=== PATIENT | female | born 1945 | race Caucasian/White ===

== ENCOUNTER → 2016-12-01 | Outpatient (CLI) | payer MEDICARE, OTHER ==
[2016-12-01 13:01] LABS: BASO % 1.2 % (0.0-1.0); EOS # 0.1 K/mm3 (0.0-0.50); EOS % 2.5 % (0.0-3.0); LYMPH # 0.4 K/mm3 (1.5-4.5); LYMPH % 12.7 % (24.0-44.0); MEAN CORPUSCULAR HGB CONC 33.3 g/dl (32.0-36.5); MEAN CORPUSCULAR VOLUME 87.1 fl (80.0-96.0); MONO # 0.3 K/mm3 (0.0-0.8); MONO % 9.7 % (0.0-5.0); NEUTROPHILS # 2.1 K/mm3 (1.8-7.7); RED CELL DISTRIBUTION WIDTH 14.5 % (11.5-14.5)
[2016-12-01 13:16] LABS: ALBUMIN 3.4 GM/DL (3.2-5.2); ALKALINE PHOSPHATASE 69 U/L (45-117); ALT/SGPT 53 U/L (12-78); AST/SGOT 45 U/L (15-37); BLOOD UREA NITROGEN 25 MG/DL (7-18); CREATININE FOR GFR 0.85 MG/DL (0.55-1.02); GLOMERULAR FILTRATION RATE > 60.0 (>39)
[2016-12-01 13:41] LABS: COMPLEMENT C3 146 MG/DL (90-180); COMPLEMENT C4 28.6 MG/DL (10-40)
== END ==
LOC: M LAB 11:54
PROVIDERS: ATTEND Internal Medicine Rheumatology
DX: M32.10 Systemic lupus erythematosus, organ or system involvement unspecified (principal); K75.4 Autoimmune hepatitis; R94.5 Abnormal results of liver function studies; K59.00 Constipation, unspecified; R12 Heartburn; E66.3 Overweight; D64.9 Anemia, unspecified; E11.9 Type 2 diabetes mellitus without complications

== ENCOUNTER → 2016-12-01 | Outpatient (CLI) | payer MEDICARE, OTHER ==
[2016-12-01 13:19] LABS: ALBUMIN 3.5 GM/DL (3.2-5.2); ALBUMIN/GLOBULIN RATIO 0.95 (1.00-1.93); BILIRUBIN,DIRECT 0.1 MG/DL (0.0-0.2); BILIRUBIN,TOTAL 0.3 MG/DL (0.2-1.0); TOTAL PROTEIN 7.2 GM/DL (6.4-8.2)
== END ==
LOC: M LAB 11:57
PROVIDERS: ATTEND Internal Medicine Rheumatology
DX: K75.4 Autoimmune hepatitis (principal); K59.00 Constipation, unspecified; R12 Heartburn; E66.3 Overweight; D64.9 Anemia, unspecified; E11.9 Type 2 diabetes mellitus without complications

== ENCOUNTER → 2016-12-29 | Outpatient (CLI) | payer MEDICARE, OTHER ==
[2016-12-29 11:48] LABS: MEAN CORPUSCULAR HGB CONC 33.4 g/dl (32.0-36.5); MEAN CORPUSCULAR VOLUME 86.8 fl (80.0-96.0); RED CELL DISTRIBUTION WIDTH 13.9 % (11.5-14.5); WHITE BLOOD COUNT 4.2 K/mm3 (4.0-10.0)
[2016-12-29 13:09] LABS: ALBUMIN 3.3 GM/DL (3.2-5.2); ALBUMIN/GLOBULIN RATIO 0.85 (1.00-1.93); ALKALINE PHOSPHATASE 69 U/L (45-117); ALT/SGPT 48 U/L (12-78); AST/SGOT 39 U/L (15-37); BILIRUBIN,DIRECT < 0.1 MG/DL (0.0-0.2); BILIRUBIN,TOTAL 0.3 MG/DL (0.2-1.0); TOTAL PROTEIN 7.2 GM/DL (6.4-8.2)
== END ==
LOC: M LAB 10:35
PROVIDERS: ATTEND Internal Medicine Gastroenterology
DX: K75.4 Autoimmune hepatitis (principal); R94.5 Abnormal results of liver function studies

== ENCOUNTER → 2017-03-15 | Outpatient (REF) | payer MEDICARE, OTHER ==
[2017-03-15 17:29] LABS: IONIZED CALCIUM 5.4 MG/DL (4.5-5.3)
== END ==
LOC: M LAB REF 17:04
PROVIDERS: ATTEND Family Medicine
DX: E83.52 Hypercalcemia (principal); D64.9 Anemia, unspecified

== ENCOUNTER → 2017-04-06 | Outpatient (CLI) | payer MEDICARE, OTHER ==
[2017-04-06 12:07] LABS: BASO % 0.6 % (0.0-1.0); EOS # 0.1 10^3/uL (0.0-0.50); EOS % 2.6 % (0.0-3.0); IMMATURE GRANULOCYTE % 0.3 % (0-0); LYMPH % 14.3 % (24.0-44.0); MEAN CORPUSCULAR HEMOGLOBIN 28.3 pg (27.0-33.0); MEAN CORPUSCULAR HGB CONC 33.3 g/dl (32.0-36.5); MEAN CORPUSCULAR VOLUME 84.9 fl (80.0-96.0); MONO # 0.5 10^3/uL (0.0-0.8); NEUTROPHILS # 2.3 10^3/uL (1.8-7.7); NEUTROPHILS % 68.2 % (36.0-66.0); PLATELET COUNT, AUTOMATED 235 10^3/uL (150-450); RED CELL DISTRIBUTION WIDTH 13.9 % (11.5-14.5); WHITE BLOOD COUNT 3.4 10^3/uL (4.0-10.0)
[2017-04-06 12:08] LABS: LYMPH # 0.5 10^3/uL (1.5-4.5)
[2017-04-06 12:32] LABS: ERYTHROCYTE SEDIMENTATION RATE 58 mm/hr (0-30)
[2017-04-06 12:36] LABS: VITAMIN B12 LEVEL 622 PG/ML
[2017-04-06 12:37] LABS: FOLATE 21.1 NG/ML
[2017-04-06 12:42] LABS: ALBUMIN 3.5 GM/DL (3.2-5.2); ALBUMIN/GLOBULIN RATIO 0.85 (1.00-1.93); ALKALINE PHOSPHATASE 67 U/L (45-117); ALT/SGPT 66 U/L (12-78); ANION GAP 5 MEQ/L (8-16); AST/SGOT 57 U/L (15-37); BILIRUBIN,TOTAL 0.3 MG/DL (0.2-1.0); BLOOD UREA NITROGEN 20 MG/DL (7-18); CARBON DIOXIDE LEVEL 29 MEQ/L (21-32); CHLORIDE LEVEL 100 MEQ/L (98-107); CREATININE FOR GFR 0.91 MG/DL (0.55-1.02); GLOMERULAR FILTRATION RATE > 60.0 (>39); GLUCOSE, FASTING 71 MG/DL (83-110); SODIUM LEVEL 134 MEQ/L (136-145); TOTAL PROTEIN 7.6 GM/DL (6.4-8.2)
[2017-04-07 12:22] LABS: ALBUMIN 4.15 GM/DL (3.29-5.55); ALBUMIN % 54.6 % (55.8-66.1)
[2017-04-13 00:06] LABS: Lyme Disease IgG Ab 18 kDa Ban Absent (.); Lyme Disease IgG Ab 23 kDa Ban Absent (.); Lyme Disease IgG Ab 28 kDa Ban Absent (.); Lyme Disease IgG Ab 30 kDa Ban Present (.); Lyme Disease IgG Ab 39 kDa Ban Absent (.); Lyme Disease IgG Ab 41 kDa Ban Absent (.); Lyme Disease IgG Ab 45 kDa Ban Absent (.); Lyme Disease IgG Ab 58 kDa Ban Absent (.); Lyme Disease IgG Ab 66 kDa Ban Absent (.); Lyme Disease IgG Ab 93 kDa Ban Absent (.); Lyme Disease IgG West Blot Int Negative (.); Lyme Disease IgG/IgM Antibodie 2.98 ISR (0.00-0.90); Lyme Disease IgM Ab 23 kDa Ban Absent (.); Lyme Disease IgM Ab 39 kDa Ban Absent (.); Lyme Disease IgM Ab 41 kDa Ban Absent (.); Lyme Disease IgM Ab Quantitati <0.80 index (0.00-0.79); Lyme Disease IgM West Blot Int Negative (.); SJOGREN'S ANTI SS-A <0.2 AI (0.0-0.9); SJOGREN'S ANTI SS-B <0.2 AI (0.0-0.9); VITAMIN E LEVEL 24.8 mg/L (6.5-21.5)
== END ==
LOC: M LAB 11:32
PROVIDERS: ATTEND Psychiatry & Neurology Neurology
DX: G62.9 Polyneuropathy, unspecified (principal)

== ENCOUNTER → 2017-04-20 | Outpatient (REF) | payer MEDICARE, OTHER ==
[2017-04-20 17:40] LABS: IONIZED CALCIUM 5.3 MG/DL (4.5-5.3)
[2017-04-20 19:06] LABS: REASON FOR REVIEW COMPREHENSIVE REVIEW
== END ==
LOC: M LAB REF 16:41
PROVIDERS: ATTEND Family Medicine
DX: E83.52 Hypercalcemia (principal); D64.9 Anemia, unspecified

== ENCOUNTER → 2017-05-18 | Outpatient (REF) | payer MEDICARE, OTHER ==
[2017-05-18 18:32] LABS: INR 0.98
[2017-05-18 19:45] LABS: IMMUNOGLOBULIN G 1210 MG/DL (681-1648); IMMUNOGLOBULIN M 191 MG/DL (40-230); TOTAL PROTEIN 7.5 GM/DL (6.4-8.2)
[2017-05-19 12:53] LABS: ALBUMIN 4.09 GM/DL (3.29-5.55); ALBUMIN % 54.5 % (55.8-66.1); GAMMA GLOBULIN % 15.9 % (11.1-18.8)
[2017-05-20 10:57] LABS: CARCINOEMBRYONIC ANTIGEN 0.9 NG/ML (<2.5)
== END ==
LOC: M LAB REF 16:45
PROVIDERS: ATTEND Internal Medicine Medical Oncology
DX: R59.0 Localized enlarged lymph nodes (principal); Z79.899 Other long term (current) drug therapy

== ENCOUNTER → 2017-05-27 | Outpatient (REF) | payer MEDICARE, OTHER ==
[2017-05-27 14:01] LABS: INR 1.01
[2017-05-30 14:25] LABS: VITAMIN D 1,25 DIHYDROXY 43.1 pg/mL (19.9-79.3)
[2017-06-03 00:06] LABS: PTH RELATED PEPTIDE < 1.1 pmol/L (.)
== END ==
LOC: M LAB REF 12:32
PROVIDERS: ATTEND Internal Medicine Medical Oncology
DX: C79.51 Secondary malignant neoplasm of bone (principal); E83.52 Hypercalcemia

== ENCOUNTER → 2017-06-01 | Outpatient (REF) | payer MEDICARE, OTHER | LOC: M LAB REF 09:10 | PROVIDERS: ATTEND Internal Medicine Medical Oncology | DX: C79.51 Secondary malignant neoplasm of bone (principal); C80.1 Malignant (primary) neoplasm, unspecified ==

== ENCOUNTER → 2017-06-13 | Outpatient (CLI) | payer MEDICARE, OTHER ==
[~2017-06-13] MED LIST: LIDOCAINE 1% MDV 20ML VIAL As Ordered ONE
--- NOTE | 2017-06-13 15:56 | REP ---
CT GUIDED LEFT ILIAC BONE BIOPSY: The procedure was performed under the direct supervision of Dr. Leonard. The patient has a history of multiple skeletal foci seen on a previous PET dated 05/17/2017. A lesion in the left iliac bone was referred for biopsy. The risks and benefits of the procedure were explained to the patient and informed consent was obtained. The left iliac bone lesion was localized using CT guidance. The skin was prepped and draped in a sterile fashion. 1% Xylocaine was used as a local anesthetic. Using CT guidance a 13 gauge bone biopsy system was inserted and advanced into the lesion. Two core biopsy samples were obtained and sent to the lab. The patient tolerated the procedure well and there were no immediate complications. After the appropriate amount of monitored convalescence the patient was discharged from the department. Reviewed by TREY Oliveira 06/13/2017 03:59 PEdited and Signed by Jordan Leonard MD 06/14/2017 08:07 A
== END ==
LOC: M RADPRO 08:23
PROVIDERS: ATTEND Internal Medicine Medical Oncology
DX: M89.8X8 Other specified disorders of bone, other site (principal); E78.00 Pure hypercholesterolemia, unspecified; E11.9 Type 2 diabetes mellitus without complications; M32.9 Systemic lupus erythematosus, unspecified; Z79.899 Other long term (current) drug therapy; Z88.8 Allergy status to other drugs, medicaments and biological substances

== ENCOUNTER → 2017-06-14 | Outpatient (REF) | payer MEDICARE, OTHER ==
[2017-06-14 14:58] LABS: MAGNESIUM LEVEL 1.1 MG/DL (1.8-2.4); PHOSPHORUS LEVEL 2.2 MG/DL (2.5-4.9); URIC ACID 6.8 MG/DL (2.6-6.0)
== END ==
LOC: M LAB REF 13:35
PROVIDERS: ATTEND Internal Medicine Medical Oncology
DX: D64.9 Anemia, unspecified (principal)

== ENCOUNTER → 2017-09-06 | Outpatient (REF) | payer MEDICARE, OTHER ==
[2017-09-06 12:39] LABS: IONIZED CALCIUM 5.4 MG/DL (4.5-5.3)
== END ==
LOC: M LAB REF 12:27
DX: E83.52 Hypercalcemia (principal)
CPT/HCPCS: 82330

== ENCOUNTER → 2017-10-26 | Outpatient (CLI) | payer MEDICARE, OTHER ==
[2017-10-26 09:09] LABS: ERYTHROCYTE SEDIMENTATION RATE 49 mm/hr (0-30)
[2017-10-26 09:11] LABS: ALBUMIN 3.4 GM/DL (3.2-5.2); ALBUMIN/GLOBULIN RATIO 0.97 (1.00-1.93); ALKALINE PHOSPHATASE 53 U/L (45-117); ALT/SGPT 62 U/L (12-78); AMYLASE 45 U/L (25-115); ANION GAP 8 MEQ/L (8-16); AST/SGOT 35 U/L (7-37); BILIRUBIN,TOTAL 0.3 MG/DL (0.2-1.0); BLOOD UREA NITROGEN 25 MG/DL (7-18); C REACTIVE PROTEIN QUANTITATIV 0.41 MG/DL (0.00-0.30); CALCIUM LEVEL 10.3 MG/DL (8.8-10.2); CARBON DIOXIDE LEVEL 31 MEQ/L (21-32); CHLORIDE LEVEL 100 MEQ/L (98-107); GLOMERULAR FILTRATION RATE 58.2 (>39); GLUCOSE, FASTING 91 MG/DL (70-100); LIPASE 142 U/L (73-393); POTASSIUM SERUM 3.3 MEQ/L (3.5-5.1); SODIUM LEVEL 139 MEQ/L (136-145); TOTAL PROTEIN 6.9 GM/DL (6.4-8.2)
== END ==
LOC: M LAB 08:17
DX: K75.4 Autoimmune hepatitis (principal); D64.9 Anemia, unspecified; E86.9 Volume depletion, unspecified
CPT/HCPCS: 82150

== ENCOUNTER → 2017-11-15 | Outpatient (REF) | payer MEDICARE, OTHER ==
[2017-11-15 18:34] LABS: FERRITIN 16 NG/ML (8-252); IRON (FE) 93 UG/DL (50-170); PERCENT SATURATION 22.1 % (13.2-45.0); TOTAL IRON BINDING CAPACITY 421 UG/DL (250-450)
== END ==
LOC: M LAB REF 16:35
DX: D64.9 Anemia, unspecified (principal)
CPT/HCPCS: 83550

== ENCOUNTER → 2017-12-26 | Outpatient (CLI) | payer MEDICARE, OTHER ==
[2017-12-26 09:10] LABS: IONIZED CALCIUM 5.2 MG/DL (4.5-5.3)
[2017-12-26 09:28] LABS: CALCIUM LEVEL 10.9 MG/DL (8.8-10.2)
== END ==
LOC: M LAB 08:24
DX: E83.52 Hypercalcemia (principal)

== ENCOUNTER → 2017-12-26 | Outpatient (CLI) | payer MEDICARE, OTHER ==
[2017-12-26 09:00] LABS: BASO % 0.4 % (0.0-1.0); EOS # 0.1 10^3/uL (0.0-0.50); EOS % 0.8 % (0.0-3.0); HEMATOCRIT 31.4 % (36.0-47.0); HEMOGLOBIN 10.5 g/dl (12.0-15.5); IMMATURE GRANULOCYTE % 0.3 % (0-3.0); LYMPH # 0.7 10^3/uL (1.5-4.5); LYMPH % 9.4 % (24.0-44.0); MEAN CORPUSCULAR HEMOGLOBIN 29.7 pg (27.0-33.0); MEAN CORPUSCULAR HGB CONC 33.4 g/dl (32.0-36.5); MONO # 0.9 10^3/uL (0.0-0.8); MONO % 12.2 % (0.0-5.0); NEUTROPHILS # 5.5 10^3/uL (1.8-7.7); NEUTROPHILS % 76.9 % (36.0-66.0); PLATELET COUNT, AUTOMATED 328 10^3/uL (150-450); RED BLOOD COUNT 3.53 10^6/uL (4.00-5.40); RED CELL DISTRIBUTION WIDTH 13.4 % (11.5-14.5); WHITE BLOOD COUNT 7.2 10^3/uL (4.0-10.0)
[2017-12-26 09:32] LABS: ERYTHROCYTE SEDIMENTATION RATE 47 mm/hr (0-30)
[2017-12-26 12:37] LABS: ALBUMIN 3.4 GM/DL (3.2-5.2); ALT/SGPT 44 U/L (12-78); AST/SGOT 25 U/L (7-37); C REACTIVE PROTEIN QUANTITATIV 0.72 MG/DL (0.00-0.30); COMPLEMENT C3 132 MG/DL (90-180); COMPLEMENT C4 25.9 MG/DL (10-40); CREATININE FOR GFR 1.13 MG/DL (0.55-1.30); GLOMERULAR FILTRATION RATE 50.5 (>39)
[2017-12-27 14:16] LABS: ANTI DOUBLE STRAND-DNA AB 1 IU/mL (0-9)
== END ==
LOC: M LAB 08:27
DX: M32.10 Systemic lupus erythematosus, organ or system involvement unspecified (principal); D86.2 Sarcoidosis of lung with sarcoidosis of lymph nodes; K75.4 Autoimmune hepatitis; Z51.81 Encounter for therapeutic drug level monitoring; Z79.899 Other long term (current) drug therapy; E83.52 Hypercalcemia
CPT/HCPCS: 84460

== ENCOUNTER → 2018-01-23 | Outpatient (REF) | payer MEDICARE, OTHER ==
[2018-01-25 00:12] LABS: FATS NEUTRAL Normal (.); FATS TOTAL Normal (.)
== END ==
LOC: M LAB REF 10:33
DX: R19.7 Diarrhea, unspecified (principal); D86.9 Sarcoidosis, unspecified
CPT/HCPCS: 82705

== ENCOUNTER → 2018-01-25 | Outpatient (REF) | payer MEDICARE, OTHER ==
[2018-01-26 11:10] LABS: CALCIUM LEVEL 11.3 MG/DL (8.8-10.2)
== END ==
LOC: M LAB REF 16:55
DX: D86.1 Sarcoidosis of lymph nodes (principal)
CPT/HCPCS: 82310

== ENCOUNTER → 2018-02-10 | Outpatient (CLI) | payer MEDICARE, OTHER ==
[2018-02-10 13:23] LABS: IONIZED CALCIUM 5.3 MG/DL (4.5-5.3)
[2018-02-10 14:02] LABS: CALCIUM LEVEL 10.8 MG/DL (8.8-10.2)
== END ==
LOC: M LAB 13:01
DX: D86.1 Sarcoidosis of lymph nodes (principal)
CPT/HCPCS: 82310

== ENCOUNTER → 2018-03-02 | Outpatient (CLI) | payer MEDICARE, OTHER ==
[2018-03-02 16:13] LABS: CALCIUM LEVEL 10.2 MG/DL (8.8-10.2)
== END ==
LOC: M LAB 15:18
DX: E83.52 Hypercalcemia (principal)
CPT/HCPCS: 82310

== ENCOUNTER → 2018-03-22 | Outpatient (CLI) | payer MEDICARE, OTHER ==
[2018-03-22 15:08] LABS: CALCIUM LEVEL 10.8 MG/DL (8.8-10.2)
== END ==
LOC: M LAB 13:44
DX: D86.1 Sarcoidosis of lymph nodes (principal)
CPT/HCPCS: 82310

== ENCOUNTER → 2018-04-01 | Outpatient (CLI) | payer MEDICARE, OTHER ==
[2018-04-01 12:35] LABS: IONIZED CALCIUM 5.2 MG/DL (4.5-5.3)
[2018-04-01 13:04] LABS: ALBUMIN 3.5 GM/DL (3.2-5.2); ALKALINE PHOSPHATASE 57 U/L (45-117); ALT/SGPT 29 U/L (12-78); ANION GAP 8 MEQ/L (8-16); AST/SGOT 25 U/L (7-37); BILIRUBIN,TOTAL 0.5 MG/DL (0.2-1.0); BLOOD UREA NITROGEN 22 MG/DL (7-18); CALCIUM LEVEL 10.7 MG/DL (8.8-10.2); CARBON DIOXIDE LEVEL 33 MEQ/L (21-32); CHLORIDE LEVEL 99 MEQ/L (98-107); CREATININE FOR GFR 1.03 MG/DL (0.55-1.30); GLOMERULAR FILTRATION RATE 56.2 (>39); GLUCOSE, FASTING 112 MG/DL (70-100); POTASSIUM SERUM 3.4 MEQ/L (3.5-5.1); SODIUM LEVEL 140 MEQ/L (136-145)
== END ==
LOC: M LAB 11:52
DX: D86.9 Sarcoidosis, unspecified (principal)
CPT/HCPCS: 80053

== ENCOUNTER → 2018-06-29 | Outpatient (REF) | payer MEDICARE, OTHER ==
[2018-06-29 18:02] LABS: CALCIUM LEVEL 10.1 MG/DL (8.8-10.2)
[2018-06-29 18:14] LABS: PTH INTACT 150.1 PG/ML (18.5-88.0)
== END ==
LOC: M LAB REF 17:18
PROVIDERS: ATTEND Internal Medicine Pulmonary Disease
DX: D86.1 Sarcoidosis of lymph nodes (principal)

== ENCOUNTER → 2018-08-16 | Outpatient (CLI) | payer MEDICARE, OTHER ==
[2018-08-16 13:01] LABS: BASO % 0.4 % (0.0-1.0); EOS # 0.1 10^3/uL (0.0-0.50); EOS % 1.8 % (0.0-3.0); HEMATOCRIT 31.3 % (36.0-47.0); HEMOGLOBIN 10.4 g/dl (12.0-15.5); LYMPH # 0.5 10^3/uL (1.5-4.5); LYMPH % 8.2 % (24.0-44.0); MEAN CORPUSCULAR HGB CONC 33.2 g/dl (32.0-36.5); MEAN CORPUSCULAR VOLUME 90.2 fl (80.0-96.0); MONO # 0.7 10^3/uL (0.0-0.8); NEUTROPHILS # 4.2 10^3/uL (1.8-7.7); NEUTROPHILS % 76.1 % (36.0-66.0); PLATELET COUNT, AUTOMATED 269 10^3/uL (150-450); RED BLOOD COUNT 3.47 10^6/uL (4.00-5.40); WHITE BLOOD COUNT 5.5 10^3/uL (4.0-10.0)
[2018-08-16 13:39] LABS: ERYTHROCYTE SEDIMENTATION RATE 35 mm/hr (0-30)
[2018-08-16 13:40] LABS: ALBUMIN 3.4 GM/DL (3.2-5.2); ALT/SGPT 31 U/L (12-78); C REACTIVE PROTEIN QUANTITATIV < 0.30 MG/DL (0.00-0.30); CALCIUM LEVEL 10.2 MG/DL (8.8-10.2); CREATININE FOR GFR 0.94 MG/DL (0.55-1.30); GLOMERULAR FILTRATION RATE > 60.0 (>39)
== END ==
LOC: M LAB 12:32
PROVIDERS: ATTEND Internal Medicine Rheumatology
DX: M32.10 Systemic lupus erythematosus, organ or system involvement unspecified (principal); D86.2 Sarcoidosis of lung with sarcoidosis of lymph nodes; K75.4 Autoimmune hepatitis; Z79.899 Other long term (current) drug therapy

== ENCOUNTER → 2018-09-13 | Outpatient (CLI) | payer MEDICARE, OTHER ==
[2018-09-13 14:46] LABS: BASO % 0.4 % (0.0-1.0); EOS % 0.5 % (0.0-3.0); HEMOGLOBIN 10.2 g/dl (12.0-15.5); LYMPH # 0.3 10^3/uL (1.5-4.5); LYMPH % 3.9 % (24.0-44.0); MEAN CORPUSCULAR HEMOGLOBIN 29.9 pg (27.0-33.0); MEAN CORPUSCULAR HGB CONC 32.9 g/dl (32.0-36.5); MEAN CORPUSCULAR VOLUME 90.9 fl (80.0-96.0); MONO # 0.5 10^3/uL (0.0-0.8); MONO % 5.6 % (0.0-5.0); NEUTROPHILS # 7.3 10^3/uL (1.8-7.7); NEUTROPHILS % 89.2 % (36.0-66.0); PLATELET COUNT, AUTOMATED 297 10^3/uL (150-450); RED BLOOD COUNT 3.41 10^6/uL (4.00-5.40); WHITE BLOOD COUNT 8.2 10^3/uL (4.0-10.0)
[2018-09-13 14:59] LABS: ALBUMIN 3.5 GM/DL (3.2-5.2); ALT/SGPT 39 U/L (12-78); C REACTIVE PROTEIN QUANTITATIV < 0.30 MG/DL (0.00-0.30); CALCIUM LEVEL 10.2 MG/DL (8.8-10.2); COMPLEMENT C3 134 MG/DL (90-180); COMPLEMENT C4 27 MG/DL (10-40); CREATININE FOR GFR 0.93 MG/DL (0.55-1.30); GLOMERULAR FILTRATION RATE > 60.0 (>39)
[2018-09-13 15:05] LABS: ERYTHROCYTE SEDIMENTATION RATE 49 mm/hr (0-30)
== END ==
LOC: M LAB 13:35
PROVIDERS: ATTEND Physician Assistant Medical
DX: M32.10 Systemic lupus erythematosus, organ or system involvement unspecified (principal); D86.2 Sarcoidosis of lung with sarcoidosis of lymph nodes; Z79.899 Other long term (current) drug therapy; Z79.52 Long term (current) use of systemic steroids

== ENCOUNTER → 2018-09-25 | Outpatient (REF) | payer MEDICARE, OTHER | LOC: M LAB REF 09-22 13:03 | PROVIDERS: ATTEND Internal Medicine Gastroenterology | DX: K21.9 Gastro-esophageal reflux disease without esophagitis (principal); D64.9 Anemia, unspecified; D86.9 Sarcoidosis, unspecified; K75.4 Autoimmune hepatitis; E83.52 Hypercalcemia ==

== ENCOUNTER → 2018-10-19 | Outpatient (REF) | payer MEDICARE, OTHER | LOC: M LAB REF 15:13 | PROVIDERS: ATTEND Family Medicine | DX: E07.9 Disorder of thyroid, unspecified (principal) ==

== ENCOUNTER → 2018-10-30 | Outpatient (CLI) | payer MEDICARE, OTHER ==
[2018-10-30 13:19] LABS: CALCIUM LEVEL 10.3 MG/DL (8.8-10.2); PHOSPHORUS LEVEL 2.6 MG/DL (2.5-4.9)
[2018-10-30 13:27] LABS: TOTAL 25(OH) VITAMIN D 18.5 NG/ML (30.0-100.0)
== END ==
LOC: M LAB 11:51
PROVIDERS: ATTEND Internal Medicine Endocrinology, Diabetes & Metabolism
DX: E83.52 Hypercalcemia (principal)

== ENCOUNTER → 2018-11-29 | Outpatient (CLI) | payer MEDICARE, OTHER ==
[2018-11-29 14:54] LABS: TOTAL VOLUME, URINE 1800 ML
[2018-11-29 15:24] LABS: CALCIUM LEVEL 10.1 MG/DL (8.8-10.2); CREATININE FOR GFR 1.12 MG/DL (0.55-1.30); GLOMERULAR FILTRATION RATE 50.9 (>39); POTASSIUM SERUM 3.5 MEQ/L (3.5-5.1)
[2018-11-29 19:53] LABS: CALCIUM, URINE < 5.0 MG/DL
[2018-11-30 09:16] LABS: CREATININE, URINE 45.5 MG/DL
== END ==
LOC: M LAB 14:20
PROVIDERS: ATTEND Nurse Practitioner Family
DX: E83.52 Hypercalcemia (principal)

== ENCOUNTER → 2019-01-08 | Outpatient (REF) | payer MEDICARE, OTHER ==
[2019-01-10 12:46] LABS: FERRITIN 33 NG/ML (8-252); IRON (FE) 43 UG/DL (50-170); PERCENT SATURATION 11.6 % (13.2-45.0); TOTAL IRON BINDING CAPACITY 372 UG/DL (250-450)
[2019-01-10 12:54] LABS: VITAMIN B12 LEVEL 306 PG/ML
[2019-01-10 12:55] LABS: FOLATE > 24.0 NG/ML
== END ==
LOC: M LAB REF 11:27
PROVIDERS: ATTEND Family Medicine
DX: D64.9 Anemia, unspecified (principal)

== ENCOUNTER → 2019-01-09 | Outpatient (CLI) | payer MEDICARE, OTHER ==
--- NOTE | 2019-01-09 15:51 | REP ---
Clinical: Pain. Technique: Internal rotation, external rotation, and Y view of the left shoulder. Findings: A bulky osteophyte is identified along the inferior margin of the humeral head along with subchondral sclerosis and subtle heterogeneity/cystic changes. The acromioclavicular joint appears intact and normal. The subacromial space is normal. Small calcifications in the subacromial space suggests associated calcific tendinopathy. 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 Electronically Signed by Sudeep Yadav MD 01/09/2019 02:36 P
== END ==
LOC: M RAD 14:10
PROVIDERS: ATTEND Internal Medicine Rheumatology
DX: Z79.899 Other long term (current) drug therapy (principal); M25.712 Osteophyte, left shoulder

== ENCOUNTER → 2019-01-15 | Outpatient (CLI) | payer MEDICARE, OTHER ==
[2019-01-15 10:24] LABS: BASO % 0.4 % (0.0-1.0); EOS # 0.1 10^3/uL (0.0-0.50); EOS % 1.5 % (0.0-3.0); HEMATOCRIT 30.8 % (36.0-47.0); HEMOGLOBIN 9.9 g/dl (12.0-15.5); LYMPH # 0.5 10^3/uL (1.5-4.5); LYMPH % 7.4 % (24.0-44.0); MEAN CORPUSCULAR HEMOGLOBIN 29.2 pg (27.0-33.0); MEAN CORPUSCULAR HGB CONC 32.1 g/dl (32.0-36.5); MEAN CORPUSCULAR VOLUME 90.9 fl (80.0-96.0); MONO # 0.6 10^3/uL (0.0-0.8); MONO % 9.4 % (0.0-5.0); NEUTROPHILS # 5.4 10^3/uL (1.8-7.7); PLATELET COUNT, AUTOMATED 294 10^3/uL (150-450); RED BLOOD COUNT 3.39 10^6/uL (4.00-5.40); WHITE BLOOD COUNT 6.7 10^3/uL (4.0-10.0)
[2019-01-15 10:43] LABS: ERYTHROCYTE SEDIMENTATION RATE 58 mm/hr (0-30)
[2019-01-15 10:55] LABS: ALBUMIN 3.4 GM/DL (3.2-5.2); ALT/SGPT 29 U/L (12-78); C REACTIVE PROTEIN QUANTITATIV < 0.30 MG/DL (0.00-0.30); CALCIUM LEVEL 10.4 MG/DL (8.8-10.2); COMPLEMENT C3 129 MG/DL (90-180); COMPLEMENT C4 25 MG/DL (10-40); CPK CREATINE PHOSPHOKINASE 33 U/L (26-192); CREATININE FOR GFR 1.11 MG/DL (0.55-1.30); GLOMERULAR FILTRATION RATE 51.4 (>39)
== END ==
LOC: M LAB 09:41
PROVIDERS: ATTEND Internal Medicine Rheumatology
DX: M32.10 Systemic lupus erythematosus, organ or system involvement unspecified (principal); D86.2 Sarcoidosis of lung with sarcoidosis of lymph nodes; M25.512 Pain in left shoulder; Z79.899 Other long term (current) drug therapy

== ENCOUNTER → 2019-04-20 | Outpatient (CLI) | payer MEDICARE, OTHER ==
[2019-04-20 14:06] LABS: CALCIUM LEVEL 10.9 MG/DL (8.8-10.2); PHOSPHORUS LEVEL 3.5 MG/DL (2.5-4.9)
== END ==
LOC: M LAB 13:02
PROVIDERS: ATTEND Internal Medicine Endocrinology, Diabetes & Metabolism
DX: E27.3 Drug-induced adrenocortical insufficiency (principal); E83.52 Hypercalcemia

== ENCOUNTER → 2019-09-14 | Outpatient (REF) | payer MEDICARE, OTHER ==
[2019-09-14 13:24] LABS: INR 0.99; PROTHROMBIN TIME 12.8 SECONDS (11.8-14.0)
[2019-09-14 13:25] LABS: PARTIAL THROMBOPLASTIN TIME 30.9 SECONDS (25.0-38.4)
[2019-09-14 13:33] LABS: AMORPHOUS SEDIMENT SMALL (NEGATIVE); APPEARANCE, URINE CLEAR (CLEAR); BACTERIA, URINE AUTO 3+ (NEGATIVE); BILIRUBIN, URINE AUTO NEGATIVE (NEGATIVE); BLOOD, URINE BLOOD NEGATIVE (NEGATIVE); COLOR, URINE YELLOW (YELLOW); GLUCOSE, URINE (UA) AUTO 1+ mg/dL (NEGATIVE); KETONE, URINE AUTO NEGATIVE (NEGATIVE); LEUKOCYTE ESTERASE, URINE AUTO 1+ (NEGATIVE); MUCUS, URINE SMALL (NEGATIVE); NITRITE, URINE AUTO NEGATIVE (NEGATIVE); PROTEIN, URINE AUTO NEGATIVE (NEGATIVE); RBC, URINE AUTO 5 /HPF (0-3); SQUAMOUS EPITHELIAL CELL UR AU 0 /HPF (0-6); UROBILINOGEN, URINE AUTO 0.2 mg/dL (0.0-2.0); WBC, URINE AUTO 32 /HPF (0-3)
== END ==
LOC: M LAB REF 12:31
PROVIDERS: ATTEND Family Medicine
DX: Z01.818 Encounter for other preprocedural examination (principal)

== ENCOUNTER → 2021-10-07 | Outpatient (CLI) | payer MEDICARE, OTHER | LOC: M WHC 13:46 | PROVIDERS: ATTEND Physician Assistant Medical | DX: M85.89 Other specified disorders of bone density and structure, multiple sites (principal); Z79.52 Long term (current) use of systemic steroids ==

== ENCOUNTER 2021-11-17 07:07 | Inpatient (IN) | payer MEDICARE, OTHER ==
[~2021-11-17] VITALS: Ht 160 cm; Wt 82.7 kg
[2021-11-17 07:50] LABS: VENOUS BASE EXCESS -1.2 (-2.0-2.0); VENOUS HCO3 24.4 MEQ/L (23.0-27.0); VENOUS O2 SATURATION 72.2 % (60.0-80.0); VENOUS PARTIAL PRESSURE CO2 44.4 mmHg (38.0-50.0); VENOUS PARTIAL PRESSURE O2 39.6 mmHg (30.0-50.0); VENOUS PH 7.358 UNITS (7.330-7.430); VENOUS TOTAL CO2 25.8 MEQ/L (24.0-28.0)
[2021-11-17 07:52] LABS: BASO % 0.3 % (0.0-1.0); EOS % 0.1 % (0.0-3.0); HEMATOCRIT 32.9 % (36.0-47.0); LYMPH # 0.2 10^3/uL (1.5-5.0); LYMPH % 3.1 % (24.0-44.0); MEAN CORPUSCULAR HEMOGLOBIN 31.7 pg (27.0-33.0); MEAN CORPUSCULAR HGB CONC 33.4 g/dl (32.0-36.5); MEAN CORPUSCULAR VOLUME 94.8 fl (80.0-96.0); MONO # 1.1 10^3/uL (0.0-0.8); MONO % 14.8 % (2.0-8.0); NEUTROPHILS # 5.9 10^3/uL (1.5-8.5); NEUTROPHILS % 81.4 % (36.0-66.0); PLATELET COUNT, AUTOMATED 183 10^3/uL (150-450); RED BLOOD COUNT 3.47 10^6/uL (4.00-5.40); WHITE BLOOD COUNT 7.2 10^3/uL (4.0-10.0)
[2021-11-17 08:22] LABS: ERYTHROCYTE SEDIMENTATION RATE 45 mm/hr (0-30)
[2021-11-17 08:27] LABS: ALBUMIN 3.4 GM/DL (3.2-5.2); BILIRUBIN,DIRECT 0.2 MG/DL (0.0-0.2); BILIRUBIN,TOTAL 0.5 MG/DL (0.2-1.0); C REACTIVE PROTEIN QUANTITATIV 0.73 MG/DL (0.00-0.30); CALCIUM LEVEL 9.9 MG/DL (8.8-10.2); CREATININE FOR GFR 1.13 MG/DL (0.55-1.30); POTASSIUM SERUM 4.2 MEQ/L (3.5-5.1); THYROID STIMULATING HORMONE 3.02 uIU/ML (0.358-3.740); TOTAL PROTEIN 6.7 GM/DL (6.4-8.2)
[2021-11-17] MEDS ORDERED: NS 1,000 ML IV SCH (10:15)
[2021-11-17] MEDS ORDERED: METOPROLOL TART 50 MG TAB PO ONE (11:15)
[2021-11-17] MEDS ORDERED: GLUCOSE 4GM CHEW TABLET PO PRN (11:50)
[2021-11-17] MEDS ORDERED: DEXTROSE 50% 50 ML SYRINGE IV PRN (11:50)
[2021-11-17] MEDS ORDERED: GLUCAGON INJ 1MG VIAL SC PRN (11:50)
[2021-11-17] MEDS: HumaLOG INSULIN (NovoLOG) PER UNIT SC SCH ×3 (12:00→20:06)
[2021-11-17 12:09] LABS: MAGNESIUM LEVEL 1.9 MG/DL (1.8-2.4)
[2021-11-17 12:20] VITALS: BP 163/72
[2021-11-17] MEDS ORDERED: MOM 30ML SUSPENSION UDC PO PRN (12:30)
[2021-11-17] MEDS ORDERED: MAALOX 30 ML SUSP *UDC PO PRN (12:30)
[2021-11-17] MEDS ORDERED: HEPARIN SOD (PORCINE) 5000UNITS/ML 1ML VIAL/SYRINGE SC SCH (13:00)
[2021-11-17] MEDS ORDERED: NS 1,000 ML IV ONE (13:30)
[2021-11-17 13:58] LABS: INR 0.99; PROTHROMBIN TIME 13.5 SECONDS (12.7-14.5)
[2021-11-17 13:59] LABS: PARTIAL THROMBOPLASTIN TIME 26.9 SECONDS (25.9-37.0)
[2021-11-17 14:00] VITALS: BP 145/62
[2021-11-17] MEDS ORDERED: FLUO20CA22 PO (14:09)
[2021-11-17] MEDS ORDERED: FOLI1TAB11 PO (14:09)
[2021-11-17] MEDS ORDERED: HYDR200T3 PO (14:09)
[2021-11-17] MEDS ORDERED: METH2.5T48 PO (14:09)
[2021-11-17] MEDS ORDERED: AMLO1TAB25 PO (14:09)
[2021-11-17] MEDS ORDERED: METO1TAB7 PO (14:09)
[2021-11-17] MEDS ORDERED: FLUO40CA PO (14:09)
[2021-11-17] MEDS ORDERED: VITA-175 PO (14:10)
[2021-11-17] MEDS ORDERED: D-3-50003 PO (14:10)
[2021-11-17] MEDS ORDERED: HOME MED LIST COMPLETE! XX SCH (14:15)
[2021-11-17] MEDS ORDERED: methylPREDNISolone 125MG 2ML VIAL IV PRN (15:00)
[2021-11-17] MEDS ORDERED: diphenhydrAMINE 50MG/ML VIAL (J1200) IV PRN (15:00)
[2021-11-17] MEDS ORDERED: EPINEPHrine INJ 1 MG/ML 1ML AMP IM PRN (15:00)
[2021-11-17] MEDS ORDERED: ALBUTEROL SULFATE 2.5 MG/0.5 ML INH NEB SOLN INH PRN (15:00)
[2021-11-17] MEDS ORDERED: ALBUTEROL 90 MCG/ACT 8GM HFA INHALER INH PRN (15:00)
[2021-11-17] MEDS: FLUoxetine 20MG CAP PO SCH (15:09)
[2021-11-17] MEDS: FOLIC ACID 1 MG TAB PO SCH (15:10)
[2021-11-17] MEDS ORDERED: BEBTELOVIMAB 175MG 2ML VIAL (EUA) IV ONE (16:00)
[2021-11-17 16:45] VITALS: BP 152/65
[2021-11-17] MEDS: ACETAMINOPHEN TAB 650MG DOSE (2X325MG) PO PRN (17:10)
[2021-11-17 17:45] VITALS: BP 162/73
[2021-11-17 19:28] VITALS: BP 137/63
[2021-11-17] MEDS: HYDROXYCHLOROQUINE 200 MG TAB PO SCH (21:25)
[2021-11-17] MEDS: HEPARIN SOD (PORCINE) 5000UNITS/ML 1ML VIAL/SYRINGE SC SCH (21:26)
[2021-11-18 06:00] VITALS: BP 180/88
[2021-11-18] MEDS: HEPARIN SOD (PORCINE) 5000UNITS/ML 1ML VIAL/SYRINGE SC SCH ×3 (06:20→20:31)
[2021-11-18 07:22] LABS: BASO % 0.5 % (0.0-1.0); EOS % 0.3 % (0.0-3.0); HEMATOCRIT 31.1 % (36.0-47.0); HEMOGLOBIN 10.5 g/dl (12.0-15.5); LYMPH # 0.4 10^3/uL (1.5-5.0); LYMPH % 10.6 % (24.0-44.0); MEAN CORPUSCULAR HEMOGLOBIN 31.3 pg (27.0-33.0); MEAN CORPUSCULAR HGB CONC 33.8 g/dl (32.0-36.5); MEAN CORPUSCULAR VOLUME 92.6 fl (80.0-96.0); MONO # 0.8 10^3/uL (0.0-0.8); MONO % 20.3 % (2.0-8.0); NEUTROPHILS # 2.5 10^3/uL (1.5-8.5); PLATELET COUNT, AUTOMATED 144 10^3/uL (150-450); RED BLOOD COUNT 3.36 10^6/uL (4.00-5.40); WHITE BLOOD COUNT 3.7 10^3/uL (4.0-10.0)
[2021-11-18] MEDS: HumaLOG INSULIN (NovoLOG) PER UNIT SC SCH ×4 (07:30→20:09)
[2021-11-18 07:48] LABS: BLOOD UREA NITROGEN 13 MG/DL (7-18); CALCIUM LEVEL 9.3 MG/DL (8.8-10.2); CARBON DIOXIDE LEVEL 25 MEQ/L (21-32); CHLORIDE LEVEL 106 MEQ/L (98-107); CREATININE FOR GFR 0.78 MG/DL (0.55-1.30); GLOMERULAR FILTRATION RATE > 60.0 (>39); GLUCOSE, FASTING 116 MG/DL (70-100); MAGNESIUM LEVEL 1.9 MG/DL (1.8-2.4); POTASSIUM SERUM 3.6 MEQ/L (3.5-5.1); SODIUM LEVEL 138 MEQ/L (136-145)
[2021-11-18] MEDS: FOLIC ACID 1 MG TAB PO SCH (08:22)
[2021-11-18] MEDS: FLUoxetine 20MG CAP PO SCH (08:22)
[2021-11-18] MEDS: HYDROXYCHLOROQUINE 200 MG TAB PO SCH ×2 (08:22→20:30)
[2021-11-18] MEDS: METOPROLOL SUCC (TopROL XL) 50MG **XL** TAB PO SCH (08:25)
[2021-11-18] MEDS ORDERED: FLUoxetine 20MG CAP PO SCH (09:00)
[2021-11-18 09:33] VITALS: BP 185/79
[2021-11-18] MEDS ORDERED: CEPACOL LOZENGE PO PRN (10:40)
[2021-11-18 11:50] VITALS: BP 152/56
[2021-11-18 14:00] VITALS: BP 161/70
[2021-11-18 20:00] VITALS: BP 142/67
[2021-11-19] VITALS (10 sets, daily range): BP systolic 130–182; BP diastolic 63–82; O2SAT 96–98
[2021-11-19] MEDS: HEPARIN SOD (PORCINE) 5000UNITS/ML 1ML VIAL/SYRINGE SC SCH ×4 (05:18→21:22)
[2021-11-19 06:38] LABS: BASO % 0.3 % (0.0-1.0); EOS # 0.1 10^3/uL (0.0-0.5); EOS % 1.7 % (0.0-3.0); HEMATOCRIT 30.1 % (36.0-47.0); HEMOGLOBIN 10.4 g/dl (12.0-15.5); LYMPH # 0.4 10^3/uL (1.5-5.0); LYMPH % 12.3 % (24.0-44.0); MEAN CORPUSCULAR HEMOGLOBIN 32.2 pg (27.0-33.0); MEAN CORPUSCULAR HGB CONC 34.6 g/dl (32.0-36.5); MEAN CORPUSCULAR VOLUME 93.2 fl (80.0-96.0); MONO # 0.7 10^3/uL (0.0-0.8); MONO % 21.9 % (2.0-8.0); NEUTROPHILS # 1.9 10^3/uL (1.5-8.5); NEUTROPHILS % 63.1 % (36.0-66.0); PLATELET COUNT, AUTOMATED 144 10^3/uL (150-450); RED BLOOD COUNT 3.23 10^6/uL (4.00-5.40)
[2021-11-19 06:58] LABS: BLOOD UREA NITROGEN 13 MG/DL (7-18); CALCIUM LEVEL 9.3 MG/DL (8.8-10.2); CARBON DIOXIDE LEVEL 25 MEQ/L (21-32); CHLORIDE LEVEL 106 MEQ/L (98-107); CREATININE FOR GFR 0.81 MG/DL (0.55-1.30); GLOMERULAR FILTRATION RATE > 60.0 (>39); GLUCOSE, FASTING 120 MG/DL (70-100); POTASSIUM SERUM 3.8 MEQ/L (3.5-5.1); SODIUM LEVEL 139 MEQ/L (136-145)
[2021-11-19] MEDS: HumaLOG INSULIN (NovoLOG) PER UNIT SC SCH ×4 (07:30→21:00)
[2021-11-19] MEDS: ACETAMINOPHEN TAB 650MG DOSE (2X325MG) PO PRN (08:00)
[2021-11-19] MEDS: FOLIC ACID 1 MG TAB PO SCH (08:00)
[2021-11-19] MEDS: HYDROXYCHLOROQUINE 200 MG TAB PO SCH ×2 (08:00→21:21)
[2021-11-19] MEDS: FLUoxetine 20MG CAP PO SCH (08:00)
[2021-11-19] MEDS: METOPROLOL SUCC (TopROL XL) 50MG **XL** TAB PO SCH (08:07)
[2021-11-19] MEDS ORDERED: METHOTREXATE 2.5 MG TAB (J8610 PER 2.5MG) PO SCH (09:00)
[2021-11-20] VITALS (11 sets, daily range): BP systolic 150–178; BP diastolic 70–78; O2SAT 95–98
[2021-11-20] MEDS ORDERED: **hydrALAZINE** 50 MG TAB PO ONE (02:30)
[2021-11-20] MEDS: HEPARIN SOD (PORCINE) 5000UNITS/ML 1ML VIAL/SYRINGE SC SCH (06:06)
[2021-11-20] MEDS: HumaLOG INSULIN (NovoLOG) PER UNIT SC SCH ×2 (07:30→11:32)
[2021-11-20 07:35] LABS: BASO % 0.3 % (0.0-1.0); EOS # 0.1 10^3/uL (0.0-0.5); EOS % 2.3 % (0.0-3.0); HEMATOCRIT 34.1 % (36.0-47.0); HEMOGLOBIN 11.6 g/dl (12.0-15.5); LYMPH # 0.5 10^3/uL (1.5-5.0); LYMPH % 15.8 % (24.0-44.0); MEAN CORPUSCULAR VOLUME 94.2 fl (80.0-96.0); MONO # 0.5 10^3/uL (0.0-0.8); NEUTROPHILS % 64.3 % (36.0-66.0); PLATELET COUNT, AUTOMATED 169 10^3/uL (150-450); RED BLOOD COUNT 3.62 10^6/uL (4.00-5.40); WHITE BLOOD COUNT 3.1 10^3/uL (4.0-10.0)
[2021-11-20 08:01] LABS: BLOOD UREA NITROGEN 17 MG/DL (7-18); CALCIUM LEVEL 9.6 MG/DL (8.8-10.2); CARBON DIOXIDE LEVEL 29 MEQ/L (21-32); CHLORIDE LEVEL 104 MEQ/L (98-107); CREATININE FOR GFR 0.91 MG/DL (0.55-1.30); GLOMERULAR FILTRATION RATE > 60.0 (>39); GLUCOSE, FASTING 116 MG/DL (70-100); POTASSIUM SERUM 3.7 MEQ/L (3.5-5.1); SODIUM LEVEL 136 MEQ/L (136-145)
[2021-11-20] MEDS: HYDROXYCHLOROQUINE 200 MG TAB PO SCH (08:43)
[2021-11-20] MEDS: METOPROLOL SUCC (TopROL XL) 50MG **XL** TAB PO SCH (08:43)
[2021-11-20] MEDS: FLUoxetine 20MG CAP PO SCH (08:43)
[2021-11-20] MEDS: FOLIC ACID 1 MG TAB PO SCH (08:44)
== END 2021-11-20 13:27 | disposition home health service (06) | DRG 178 ==
LOC: EDBD 07:07 → M ED 07:07 → M ED INP 10:54 → ENRESERV 11:30 → M 4MAIN 12:20
PROVIDERS: ADMIT Family Medicine; ATTEND Family Medicine
DX: U07.1 COVID-19 (principal); E87.2 Acidosis; M32.9 Systemic lupus erythematosus, unspecified; E11.22 Type 2 diabetes mellitus with diabetic chronic kidney disease; N18.31 Chronic kidney disease, stage 3a; I12.9 Hypertensive chronic kidney disease with stage 1 through stage 4 chronic kidney disease, or unspecified chronic kidney disease; E66.9 Obesity, unspecified; D64.9 Anemia, unspecified; D86.9 Sarcoidosis, unspecified; Z79.899 Other long term (current) drug therapy; Z96.653 Presence of artificial knee joint, bilateral; Z96.611 Presence of right artificial shoulder joint; Z96.612 Presence of left artificial shoulder joint; Z68.32 Body mass index [BMI] 32.0-32.9, adult

== ENCOUNTER → 2022-03-19 | Outpatient (REF) | payer MEDICARE, OTHER ==
[~2022-03-19] MED LIST changes: +AMLO1TAB25 PO; +D-3-50003 PO; +FLUO20CA22 PO; +FLUO40CA PO; +FOLI1TAB11 PO; +HYDR200T3 PO; -LIDOCAINE 1% MDV 20ML VIAL As Ordered ONE; +METH2.5T48 PO; +METO1TAB7 PO; +VITA-175 PO
== END ==
LOC: M LAB REF 15:53
PROVIDERS: ATTEND Family Medicine
DX: M32.10 Systemic lupus erythematosus, organ or system involvement unspecified (principal)

== ENCOUNTER → 2022-04-20 | Outpatient (CLI) | payer MEDICARE, OTHER ==
[2022-04-20 15:11] LABS: BASO % 0.4 % (0.0-1.0); EOS # 0.1 10^3/uL (0.0-0.5); EOS % 2.6 % (0.0-3.0); HEMOGLOBIN 10.8 g/dl (12.0-15.5); LYMPH # 0.4 10^3/uL (1.5-5.0); LYMPH % 9.5 % (24.0-44.0); MEAN CORPUSCULAR HEMOGLOBIN 30.8 pg (27.0-33.0); MEAN CORPUSCULAR HGB CONC 31.8 g/dl (32.0-36.5); MEAN CORPUSCULAR VOLUME 96.9 fl (80.0-96.0); MONO # 0.6 10^3/uL (0.0-0.8); MONO % 13.4 % (2.0-8.0); NEUTROPHILS # 3.4 10^3/uL (1.5-8.5); NEUTROPHILS % 73.9 % (36.0-66.0); PLATELET COUNT, AUTOMATED 209 10^3/uL (150-450); RED BLOOD COUNT 3.51 10^6/uL (4.00-5.40); WHITE BLOOD COUNT 4.6 10^3/uL (4.0-10.0)
[2022-04-20 15:38] LABS: HEMOGLOBIN A1c 5.6 %
[2022-04-20 15:50] LABS: ALBUMIN 3.5 GM/DL (3.2-5.2); PERCENT SATURATION 27.1 % (13.2-45.0)
== END ==
LOC: M LAB 14:25
PROVIDERS: ATTEND Orthopaedic Surgery Adult Reconstructive Orthopaedic Surgery
DX: Z01.818 Encounter for other preprocedural examination (principal); M16.11 Unilateral primary osteoarthritis, right hip; M25.551 Pain in right hip; M32.9 Systemic lupus erythematosus, unspecified; Z86.39 Personal history of other endocrine, nutritional and metabolic disease; Z86.79 Personal history of other diseases of the circulatory system

== ENCOUNTER 2022-05-21 16:15 | Inpatient (IN) | payer MEDICARE, OTHER ==
[~2022-05-21] VITALS: Ht 167.6 cm; Wt 81.8 kg
[2022-05-21] MEDS ORDERED: ONDANSETRON 4MG 2ML VIAL IV ONE (17:05)
[2022-05-21] MEDS: MORPHINE 2 MG/ML 1ML VIAL IV PRN ×2 (17:20→19:05)
[2022-05-21 17:42] LABS: HEMATOCRIT 29.8 % (36.0-47.0); HEMOGLOBIN 9.6 g/dl (12.0-15.5); MEAN CORPUSCULAR HEMOGLOBIN 31.3 pg (27.0-33.0); MEAN CORPUSCULAR HGB CONC 32.2 g/dl (32.0-36.5); MEAN CORPUSCULAR VOLUME 97.1 fl (80.0-96.0); PLATELET COUNT, AUTOMATED 305 10^3/uL (150-450); RED BLOOD COUNT 3.07 10^6/uL (4.00-5.40); WHITE BLOOD COUNT 7.5 10^3/uL (4.0-10.0)
[2022-05-21 18:08] LABS: RSV AMPLIFICATION NEGATIVE (NEGATIVE)
[2022-05-21 18:15] LABS: BLOOD UREA NITROGEN 23 MG/DL (7-18); CALCIUM LEVEL 9.7 MG/DL (8.8-10.2); CARBON DIOXIDE LEVEL 27 MEQ/L (21-32); CHLORIDE LEVEL 102 MEQ/L (98-107); CREATININE FOR GFR 0.93 MG/DL (0.55-1.30); GLOMERULAR FILTRATION RATE > 60.0 (>39); GLUCOSE, FASTING 124 MG/DL (70-100); POTASSIUM SERUM 4.6 MEQ/L (3.5-5.1); SODIUM LEVEL 135 MEQ/L (136-145)
[2022-05-21] MEDS ORDERED: propofoL 200 MG/20 ML VIAL As Ordered ONE ×2 (19:37→20:25)
[2022-05-21] MEDS ORDERED: propofoL 200 MG/20 ML VIAL IV ONE (19:55)
[2022-05-21] MEDS: NS 1,000 ML IV SCH (20:10)
[2022-05-21] MEDS ORDERED: propofoL 200 MG/20 ML VIAL IV.PROC PRN (20:10)
[2022-05-21] MEDS ORDERED: LIDOCAINE 2% 100MG/5ML SDV (FOR ANES.) As Ordered ONE (20:25)
[2022-05-21] MEDS ORDERED: INSULIN LISPRO (NovoLOG) PER UNIT SC SCH (21:00)
[2022-05-21] MEDS ORDERED: MOM 30ML SUSPENSION UDC PO PRN (23:05)
[2022-05-21] MEDS ORDERED: ACETAMINOPHEN TAB 650MG DOSE (2X325MG) PO PRN (23:05)
[2022-05-21] MEDS ORDERED: GLUCAGON INJ 1MG VIAL SC PRN (23:20)
[2022-05-21] MEDS ORDERED: DEXTROSE 50% 50 ML SYRINGE IV PRN (23:20)
[2022-05-21] MEDS ORDERED: GLUCOSE 4GM CHEW TABLET PO PRN (23:20)
[2022-05-21] MEDS ORDERED: NEBI5TAB PO (23:39)
[2022-05-21] MEDS ORDERED: [UNRECOGNIZED DRUG - CODE] PO (23:39)
[2022-05-21] MEDS ORDERED: OXYC-517 PO (23:39)
[2022-05-21] MEDS ORDERED: MELO7.5T35 PO (23:39)
[2022-05-21] MEDS ORDERED: HOME MED LIST COMPLETE! XX SCH (23:40)
[2022-05-22] MEDS: NS 1,000 ML IV SCH (05:59)
[2022-05-22 06:54] LABS: HEMATOCRIT 27.4 % (36.0-47.0); HEMOGLOBIN 8.7 g/dl (12.0-15.5); MEAN CORPUSCULAR HEMOGLOBIN 30.9 pg (27.0-33.0); MEAN CORPUSCULAR HGB CONC 31.8 g/dl (32.0-36.5); MEAN CORPUSCULAR VOLUME 97.2 fl (80.0-96.0); PLATELET COUNT, AUTOMATED 264 10^3/uL (150-450); RED BLOOD COUNT 2.82 10^6/uL (4.00-5.40); WHITE BLOOD COUNT 6.4 10^3/uL (4.0-10.0)
[2022-05-22 07:21] LABS: ALBUMIN 2.7 GM/DL (3.2-5.2); ALT/SGPT 20 U/L (12-78); BILIRUBIN,TOTAL 0.4 MG/DL (0.2-1.0); BLOOD UREA NITROGEN 14 MG/DL (7-18); CARBON DIOXIDE LEVEL 27 MEQ/L (21-32); CHLORIDE LEVEL 104 MEQ/L (98-107); GLOMERULAR FILTRATION RATE > 60.0 (>39); GLUCOSE, FASTING 135 MG/DL (70-100); POTASSIUM SERUM 3.9 MEQ/L (3.5-5.1); SODIUM LEVEL 135 MEQ/L (136-145); TOTAL PROTEIN 5.4 GM/DL (6.4-8.2)
[2022-05-22] MEDS ORDERED: INSULIN LISPRO (NovoLOG) PER UNIT SC SCH (07:30)
[2022-05-22] MEDS: DOCUSATE SODIUM 100MG CAPSULE PO SCH ×2 (08:31→19:56)
[2022-05-22] MEDS: VITAMIN E 400 INTERNATIONAL UNITS CAP PO SCH (09:00)
[2022-05-22] MEDS ORDERED: ENOXAPARIN 40MG/0.4ML SYRINGE (J1650 PER 10MG) SC SCH (09:00)
[2022-05-22 10:31] VITALS: BP 181/75
[2022-05-22] MEDS: FOLIC ACID 1MG TAB PO SCH (11:42)
[2022-05-22] MEDS: FLUoxetine 20MG CAP PO SCH ×2 (11:42→11:43)
[2022-05-22] MEDS: VITAMIN D 1,000 INTERNATIONAL UNITS TABLET PO SCH (11:42)
[2022-05-22 12:35] LABS: FERRITIN 89 NG/ML (8-252); IRON (FE) 114 UG/DL (50-170); PERCENT SATURATION 40.9 % (13.2-45.0); TOTAL IRON BINDING CAPACITY 279 UG/DL (250-450)
[2022-05-22 13:07] VITALS: BP 183/77
[2022-05-22] MEDS: NEBIVOLOL 5 MG TAB (BYSTOLIC) PO SCH (13:08)
[2022-05-22 13:59] VITALS: BP 162/76
[2022-05-22 14:45] VITALS: BP 121/73
[2022-05-22] MEDS: HYDROXYCHLOROQUINE 200 MG TAB PO SCH ×2 (15:03→19:56)
[2022-05-22 19:25] VITALS: BP 137/67
[2022-05-23 05:15] VITALS: BP 164/82
[2022-05-23] MEDS ORDERED: MOM 30ML SUSPENSION UDC PO PRN (07:00)
[2022-05-23] MEDS ORDERED: ACETAMINOPHEN TAB 650MG DOSE (2X325MG) PO PRN (07:00)
[2022-05-23] MEDS: DOCUSATE SODIUM 100MG CAPSULE PO SCH ×2 (08:27→20:55)
[2022-05-23 08:30] LABS: HEMATOCRIT 26.5 % (36.0-47.0); HEMOGLOBIN 8.5 g/dl (12.0-15.5); MEAN CORPUSCULAR HEMOGLOBIN 31.1 pg (27.0-33.0); MEAN CORPUSCULAR HGB CONC 32.1 g/dl (32.0-36.5); MEAN CORPUSCULAR VOLUME 97.1 fl (80.0-96.0); PLATELET COUNT, AUTOMATED 269 10^3/uL (150-450); RED BLOOD COUNT 2.73 10^6/uL (4.00-5.40); WHITE BLOOD COUNT 5.8 10^3/uL (4.0-10.0)
[2022-05-23] MEDS: NEBIVOLOL 5 MG TAB (BYSTOLIC) PO SCH (08:30)
[2022-05-23] MEDS: VITAMIN D 1,000 INTERNATIONAL UNITS TABLET PO SCH (08:31)
[2022-05-23] MEDS: VITAMIN E 400 INTERNATIONAL UNITS CAP PO SCH (08:31)
[2022-05-23] MEDS: MELOXICAM (MOBIC) 7.5 MG TAB PO SCH (08:31)
[2022-05-23] MEDS: FLUoxetine 20MG CAP PO SCH ×2 (08:32)
[2022-05-23] MEDS: HYDROXYCHLOROQUINE 200 MG TAB PO SCH ×2 (08:32→20:55)
[2022-05-23] MEDS: FOLIC ACID 1MG TAB PO SCH (08:32)
[2022-05-23] MEDS ORDERED: ENOXAPARIN 40MG/0.4ML SYRINGE (J1650 PER 10MG) SC SCH (09:00)
[2022-05-23 09:24] LABS: ALBUMIN 2.6 GM/DL (3.2-5.2); ALT/SGPT 19 U/L (12-78); BILIRUBIN,TOTAL 0.3 MG/DL (0.2-1.0); BLOOD UREA NITROGEN 19 MG/DL (7-18); CALCIUM LEVEL 9.1 MG/DL (8.8-10.2); CARBON DIOXIDE LEVEL 25 MEQ/L (21-32); CHLORIDE LEVEL 105 MEQ/L (98-107); CREATININE FOR GFR 0.78 MG/DL (0.55-1.30); GLOMERULAR FILTRATION RATE > 60.0 (>39); GLUCOSE, FASTING 148 MG/DL (70-100); POTASSIUM SERUM 4.1 MEQ/L (3.5-5.1); SODIUM LEVEL 136 MEQ/L (136-145); TOTAL PROTEIN 5.1 GM/DL (6.4-8.2)
[2022-05-23] MEDS: oxyCODONE 5MG TAB PO PRN ×2 (10:40→21:02)
[2022-05-23 22:00] VITALS: BP_SYST 159; BP_SYST 162; BP_DIAS 52; BP_DIAS 63
[2022-05-24 06:00] VITALS: BP 162/63
[2022-05-24 06:06] LABS: HEMATOCRIT 25.1 % (36.0-47.0); HEMOGLOBIN 8.2 g/dl (12.0-15.5); MEAN CORPUSCULAR HEMOGLOBIN 31.3 pg (27.0-33.0); MEAN CORPUSCULAR HGB CONC 32.7 g/dl (32.0-36.5); MEAN CORPUSCULAR VOLUME 95.8 fl (80.0-96.0); PLATELET COUNT, AUTOMATED 263 10^3/uL (150-450); RED BLOOD COUNT 2.62 10^6/uL (4.00-5.40); WHITE BLOOD COUNT 5.2 10^3/uL (4.0-10.0)
[2022-05-24] MEDS ORDERED: METAMUCIL (PSYLLIUM) PACKET PO SCH (09:00)
[2022-05-24] MEDS ORDERED: ASPIRIN 81 MG CHEW TABLET PO SCH ×2 (09:00)
[2022-05-24] MEDS ORDERED: MIRALAX *UNIT DOSE* 17GM PACKET PO SCH (09:00)
[2022-05-24] MEDS: DOCUSATE SODIUM 100MG CAPSULE PO SCH (09:19)
[2022-05-24] MEDS: MELOXICAM (MOBIC) 7.5 MG TAB PO SCH (09:21)
[2022-05-24] MEDS: VITAMIN D 1,000 INTERNATIONAL UNITS TABLET PO SCH (09:21)
[2022-05-24] MEDS: VITAMIN E 400 INTERNATIONAL UNITS CAP PO SCH (09:22)
[2022-05-24] MEDS: FOLIC ACID 1MG TAB PO SCH (09:22)
[2022-05-24] MEDS: HYDROXYCHLOROQUINE 200 MG TAB PO SCH (09:22)
[2022-05-24] MEDS: FLUoxetine 20MG CAP PO SCH ×2 (09:23)
[2022-05-24 09:26] VITALS: BP 161/57
[2022-05-24] MEDS: NEBIVOLOL 5 MG TAB (BYSTOLIC) PO SCH (09:26)
[2022-05-24 10:12] LABS: VITAMIN B12 LEVEL 315 PG/ML
[2022-05-24 10:13] LABS: FOLATE 21.4 NG/ML
[2022-05-24] MEDS ORDERED: META1POW PO (10:43)
[2022-05-24] MEDS ORDERED: COLA100C5 PO (10:43)
[2022-05-24] MEDS ORDERED: ASPI81CH8 PO (10:43)
[2022-05-24] MEDS ORDERED: MOM30SS2 PO (10:43)
[2022-05-24] MEDS ORDERED: MIRA1POW3 PO (10:43)
[2022-05-24] MEDS ORDERED: FLEET ENEMA PR PRN (13:35)
[2022-05-24 14:58] VITALS: BP 163/59
[2022-05-27] MEDS ORDERED: METHOTREXATE 2.5 MG TAB (J8610 PER 2.5MG) PO SCH (09:00)
== END 2022-05-24 20:00 | DRG 561 ==
LOC: M ED 16:15 → M ED INP 23:01 → M MS5PR 05-22 14:35
PROVIDERS: ADMIT Family Medicine; ATTEND Student in an Organized Health Care Education/Training Program
PROC: 0SS9XZZ Reposition Right Hip Joint, External Approach (ICD-10-PCS; principal; 2022-05-21)
DX: T84.020A Dislocation of internal right hip prosthesis, initial encounter (principal); Y83.1 Surgical operation with implant of artificial internal device as the cause of abnormal reaction of the patient, or of later complication, without mention of misadventure at the time of the procedure; D86.9 Sarcoidosis, unspecified; M32.9 Systemic lupus erythematosus, unspecified; I12.9 Hypertensive chronic kidney disease with stage 1 through stage 4 chronic kidney disease, or unspecified chronic kidney disease; N18.9 Chronic kidney disease, unspecified; E66.9 Obesity, unspecified; D53.9 Nutritional anemia, unspecified; E55.9 Vitamin D deficiency, unspecified; F32.A Depression, unspecified; K59.00 Constipation, unspecified; Z68.29 Body mass index [BMI] 29.0-29.9, adult; Z96.641 Presence of right artificial hip joint; Z79.1 Long term (current) use of non-steroidal anti-inflammatories (NSAID); Z79.899 Other long term (current) drug therapy

== ENCOUNTER 2022-05-24 10:03 | Inpatient (IN) | payer MEDICARE, OTHER ==
[~2022-05-24] VITALS: Ht 162.6 cm; Wt 92.4 kg
[~2022-05-24 10:03] MED LIST changes: +MELO7.5T35 PO; +NEBI5TAB PO; +OXYC-517 PO; +[UNRECOGNIZED DRUG - CODE] PO
[2022-05-24] MEDS ORDERED: META1POW PO (10:43)
[2022-05-24] MEDS ORDERED: ASPI81CH8 PO (10:43)
[2022-05-24] MEDS ORDERED: MIRA1POW3 PO (10:43)
[2022-05-24] MEDS ORDERED: COLA100C5 PO (10:43)
[2022-05-24] MEDS ORDERED: MOM30SS2 PO (10:43)
[2022-05-24] MEDS ORDERED: MIRALAX *UNIT DOSE* 17GM PACKET PO PRN (14:45)
[2022-05-24] MEDS ORDERED: ONDANSETRON 4MG TAB PO PRN (14:45)
[2022-05-24] MEDS: SUCRALFATE 1 GM TAB PO SCH ×2 (17:30→21:21)
[2022-05-24 20:10] VITALS: BP 150/76
[2022-05-24] MEDS: REMEDY PHYTOPLEX Z-GUARD PASTE 113GM TUBE (FROM STOREROOM PRODUCT) TOP SCH (21:00)
[2022-05-24] MEDS: ACETAMINOPHEN 500 MG TAB PO SCH (21:00)
[2022-05-24] MEDS: METAMUCIL (PSYLLIUM) PACKET PO SCH (21:00)
[2022-05-24] MEDS: PANTOPRAZOLE 40MG TAB (PROTONIX) PO SCH (21:20)
[2022-05-24] MEDS: SENNA 8.6 MG TAB (SENOKOT) PO SCH (21:20)
[2022-05-24] MEDS: HYDROXYCHLOROQUINE 200 MG TAB PO SCH (21:20)
[2022-05-24] MEDS: DOCUSATE SODIUM 100MG CAPSULE PO SCH (21:21)
[2022-05-24] MEDS: ASPIRIN 81MG ENTERIC TABLET PO SCH (21:21)
[2022-05-25] VITALS (11 sets, daily range): BP systolic 152–210; BP diastolic 80–100
[2022-05-25 07:31] LABS: BASO % 0.5 % (0.0-1.0); EOS # 0.2 10^3/uL (0.0-0.5); EOS % 3.7 % (0.0-3.0); HEMATOCRIT 27.1 % (36.0-47.0); HEMOGLOBIN 8.7 g/dl (12.0-15.5); LYMPH # 0.4 10^3/uL (1.5-5.0); LYMPH % 7.8 % (24.0-44.0); MEAN CORPUSCULAR HEMOGLOBIN 31.1 pg (27.0-33.0); MEAN CORPUSCULAR HGB CONC 32.1 g/dl (32.0-36.5); MEAN CORPUSCULAR VOLUME 96.8 fl (80.0-96.0); MONO # 0.5 10^3/uL (0.0-0.8); MONO % 9.1 % (2.0-8.0); NEUTROPHILS # 4.4 10^3/uL (1.5-8.5); NEUTROPHILS % 78.4 % (36.0-66.0); PLATELET COUNT, AUTOMATED 286 10^3/uL (150-450); WHITE BLOOD COUNT 5.6 10^3/uL (4.0-10.0)
[2022-05-25 08:08] LABS: ALBUMIN 2.4 GM/DL (3.2-5.2); ALKALINE PHOSPHATASE 55 U/L (45-117); ALT/SGPT 18 U/L (12-78); AST/SGOT 11 U/L (7-37); BILIRUBIN,TOTAL 0.3 MG/DL (0.2-1.0); BLOOD UREA NITROGEN 16 MG/DL (7-18); CALCIUM LEVEL 9.7 MG/DL (8.8-10.2); CARBON DIOXIDE LEVEL 26 MEQ/L (21-32); CHLORIDE LEVEL 106 MEQ/L (98-107); CREATININE FOR GFR 0.71 MG/DL (0.55-1.30); GLOMERULAR FILTRATION RATE > 60.0 (>39); GLUCOSE, FASTING 137 MG/DL (70-100); POTASSIUM SERUM 4.1 MEQ/L (3.5-5.1); SODIUM LEVEL 134 MEQ/L (136-145); TOTAL PROTEIN 5.4 GM/DL (6.4-8.2)
[2022-05-25] MEDS: ASPIRIN 81MG ENTERIC TABLET PO SCH ×2 (08:13→20:22)
[2022-05-25] MEDS: VITAMIN D 1,000 INTERNATIONAL UNITS TABLET PO SCH (08:13)
[2022-05-25] MEDS: DOCUSATE SODIUM 100MG CAPSULE PO SCH ×2 (08:13→20:22)
[2022-05-25] MEDS: METAMUCIL (PSYLLIUM) PACKET PO SCH ×2 (08:13→20:22)
[2022-05-25] MEDS: PANTOPRAZOLE 40MG TAB (PROTONIX) PO SCH ×2 (08:13→20:22)
[2022-05-25] MEDS: SUCRALFATE 1 GM TAB PO SCH ×4 (08:13→20:22)
[2022-05-25] MEDS: FOLIC ACID 1MG TAB PO SCH (08:14)
[2022-05-25] MEDS: FLUoxetine 20MG CAP PO SCH (08:14)
[2022-05-25] MEDS: VITAMIN E 400 INTERNATIONAL UNITS CAP PO SCH (08:14)
[2022-05-25] MEDS: HYDROXYCHLOROQUINE 200 MG TAB PO SCH ×2 (08:18→20:22)
[2022-05-25] MEDS: REMEDY PHYTOPLEX Z-GUARD PASTE 113GM TUBE (FROM STOREROOM PRODUCT) TOP SCH ×3 (08:20→20:24)
[2022-05-25] MEDS: ACETAMINOPHEN 500 MG TAB PO SCH ×3 (08:21→20:24)
[2022-05-25] MEDS ORDERED: NEBIVOLOL 5 MG TAB (BYSTOLIC) PO SCH ×2 (09:00→21:00)
[2022-05-25] MEDS ORDERED: FLUBLOK(EGG FREE)(QUAD)INFLUENZA VACC 0.5ML SYRINGE 18YRS & OLDER IM.IMMUN ONE (09:00)
[2022-05-25] MEDS ORDERED: PILL CUTTER 1 EACH XX PRN (10:05)
[2022-05-25] MEDS ORDERED: **hydrALAZINE HCL** 25 MG TAB PO SCH (11:00)
[2022-05-25] MEDS ORDERED: **hydrALAZINE** 50 MG TAB PO ONE (15:05)
[2022-05-25] MEDS: NEBIVOLOL 5 MG TAB (BYSTOLIC) PO SCH (16:19)
[2022-05-25] MEDS: **hydrALAZINE** 50 MG TAB PO SCH ×2 (17:33→22:15)
[2022-05-25] MEDS: SENNA 8.6 MG TAB (SENOKOT) PO SCH (20:22)
[2022-05-25] MEDS: VALSARTAN 40MG TABLET (DIOVAN) PO SCH (20:23)
[2022-05-26 05:00] VITALS: BP_SYST 170; BP_SYST 190; BP_DIAS 84
[2022-05-26] MEDS: **hydrALAZINE** 50 MG TAB PO SCH ×3 (05:08→18:21)
[2022-05-26 06:00] VITALS: BP 154/78
[2022-05-26 06:55] LABS: BASO % 0.5 % (0.0-1.0); EOS # 0.3 10^3/uL (0.0-0.5); EOS % 5.1 % (0.0-3.0); HEMATOCRIT 26.5 % (36.0-47.0); HEMOGLOBIN 8.5 g/dl (12.0-15.5); LYMPH # 0.4 10^3/uL (1.5-5.0); LYMPH % 6.5 % (24.0-44.0); MEAN CORPUSCULAR HGB CONC 32.1 g/dl (32.0-36.5); MEAN CORPUSCULAR VOLUME 96.7 fl (80.0-96.0); MONO # 0.6 10^3/uL (0.0-0.8); MONO % 10.8 % (2.0-8.0); NEUTROPHILS # 4.4 10^3/uL (1.5-8.5); NEUTROPHILS % 76.6 % (36.0-66.0); PLATELET COUNT, AUTOMATED 274 10^3/uL (150-450); RED BLOOD COUNT 2.74 10^6/uL (4.00-5.40); WHITE BLOOD COUNT 5.7 10^3/uL (4.0-10.0)
[2022-05-26 07:25] LABS: BLOOD UREA NITROGEN 22 MG/DL (9-23); CALCIUM LEVEL 9.5 MG/DL (8.3-10.6); CARBON DIOXIDE LEVEL 25 MMOL/L (20-31); CHLORIDE LEVEL 103 MMOL/L (98-107); CREATININE FOR GFR 0.82 MG/DL (0.55-1.30); GLOMERULAR FILTRATION RATE > 60.0 (>39); GLUCOSE, FASTING 127 MG/DL (74-106); POTASSIUM SERUM 4.5 MMOL/L (3.5-5.1); SODIUM LEVEL 137 MMOL/L (136-145)
[2022-05-26] MEDS: FLUoxetine 20MG CAP PO SCH (08:32)
[2022-05-26] MEDS: DOCUSATE SODIUM 100MG CAPSULE PO SCH ×2 (08:32→21:19)
[2022-05-26] MEDS: VITAMIN D 1,000 INTERNATIONAL UNITS TABLET PO SCH (08:32)
[2022-05-26] MEDS: ASPIRIN 81MG ENTERIC TABLET PO SCH ×2 (08:32→21:20)
[2022-05-26] MEDS: FOLIC ACID 1MG TAB PO SCH (08:32)
[2022-05-26] MEDS: VITAMIN E 400 INTERNATIONAL UNITS CAP PO SCH (08:32)
[2022-05-26] MEDS: PANTOPRAZOLE 40MG TAB (PROTONIX) PO SCH ×2 (08:33→21:19)
[2022-05-26] MEDS: SUCRALFATE 1 GM TAB PO SCH ×4 (08:33→21:18)
[2022-05-26] MEDS: HYDROXYCHLOROQUINE 200 MG TAB PO SCH ×2 (08:33→21:19)
[2022-05-26] MEDS: ACETAMINOPHEN 500 MG TAB PO SCH ×3 (08:33→21:19)
[2022-05-26] MEDS: REMEDY PHYTOPLEX Z-GUARD PASTE 113GM TUBE (FROM STOREROOM PRODUCT) TOP SCH ×3 (08:33→21:00)
[2022-05-26] MEDS: METAMUCIL (PSYLLIUM) PACKET PO SCH ×2 (08:33→21:20)
[2022-05-26] MEDS: NEBIVOLOL 5 MG TAB (BYSTOLIC) PO SCH ×2 (08:33→21:20)
[2022-05-26] MEDS ORDERED: ENOXAPARIN 40MG/0.4ML SYRINGE (J1650 PER 10MG) SC SCH (09:00)
[2022-05-26] MEDS ORDERED: VALSARTAN 40MG TABLET (DIOVAN) PO SCH ×3 (09:00)
[2022-05-26] MEDS ORDERED: cloNIDine 0.1MG TABLET PO ONE (11:55)
[2022-05-26 13:10] VITALS: BP_SYST 160; BP_SYST 164; BP_DIAS 80
[2022-05-26] MEDS: cloNIDine 0.1MG TABLET PO SCH ×2 (16:24→21:23)
[2022-05-26 16:26] VITALS: BP_SYST 150; BP_SYST 160; BP_DIAS 70; BP_DIAS 72
[2022-05-26 21:18] VITALS: BP 122/52
[2022-05-26] MEDS: VALSARTAN 40MG TABLET (DIOVAN) PO SCH (21:19)
[2022-05-26] MEDS: SENNA 8.6 MG TAB (SENOKOT) PO SCH (21:19)
[2022-05-27] VITALS (8 sets, daily range): BP systolic 110–160; BP diastolic 48–82
[2022-05-27] MEDS: NEBIVOLOL 5 MG TAB (BYSTOLIC) PO SCH ×2 (06:11→20:45)
[2022-05-27] MEDS: **hydrALAZINE** 50 MG TAB PO SCH ×5 (06:12→23:39)
[2022-05-27] MEDS: ASPIRIN 81MG ENTERIC TABLET PO SCH ×2 (08:33→20:44)
[2022-05-27] MEDS: cloNIDine 0.1MG TABLET PO SCH ×3 (08:35→20:44)
[2022-05-27] MEDS: MELOXICAM (MOBIC) 7.5 MG TAB PO PRN (08:35)
[2022-05-27] MEDS: VITAMIN E 400 INTERNATIONAL UNITS CAP PO SCH (08:35)
[2022-05-27] MEDS: FLUoxetine 20MG CAP PO SCH (08:35)
[2022-05-27] MEDS: DOCUSATE SODIUM 100MG CAPSULE PO SCH ×2 (08:35→20:45)
[2022-05-27] MEDS: HYDROXYCHLOROQUINE 200 MG TAB PO SCH ×2 (08:35→20:45)
[2022-05-27] MEDS: SUCRALFATE 1 GM TAB PO SCH ×4 (08:35→20:45)
[2022-05-27] MEDS: PANTOPRAZOLE 40MG TAB (PROTONIX) PO SCH ×2 (08:35→20:44)
[2022-05-27] MEDS: VITAMIN D 1,000 INTERNATIONAL UNITS TABLET PO SCH (08:36)
[2022-05-27] MEDS: FOLIC ACID 1MG TAB PO SCH (08:36)
[2022-05-27] MEDS: METAMUCIL (PSYLLIUM) PACKET PO SCH ×2 (08:37→20:44)
[2022-05-27] MEDS: REMEDY PHYTOPLEX Z-GUARD PASTE 113GM TUBE (FROM STOREROOM PRODUCT) TOP SCH ×3 (08:37→20:54)
[2022-05-27] MEDS: ACETAMINOPHEN 500 MG TAB PO SCH ×3 (09:00→20:48)
[2022-05-27] MEDS: SENNA 8.6 MG TAB (SENOKOT) PO SCH (20:44)
[2022-05-27] MEDS: VALSARTAN 40MG TABLET (DIOVAN) PO SCH (20:45)
[2022-05-28 03:42] VITALS: BP 140/64
[2022-05-28] MEDS: NEBIVOLOL 5 MG TAB (BYSTOLIC) PO SCH ×2 (05:28→20:44)
[2022-05-28] MEDS: **hydrALAZINE** 50 MG TAB PO SCH ×3 (05:30→17:54)
[2022-05-28] MEDS: SUCRALFATE 1 GM TAB PO SCH ×4 (07:30→20:54)
[2022-05-28] MEDS: REMEDY PHYTOPLEX Z-GUARD PASTE 113GM TUBE (FROM STOREROOM PRODUCT) TOP SCH ×3 (09:00→20:45)
[2022-05-28] MEDS: METAMUCIL (PSYLLIUM) PACKET PO SCH ×2 (09:00→20:55)
[2022-05-28] MEDS: ACETAMINOPHEN 500 MG TAB PO SCH ×3 (09:00→20:55)
[2022-05-28 09:36] LABS: BASO % 0.7 % (0.0-1.0); EOS # 0.2 10^3/uL (0.0-0.5); EOS % 4.3 % (0.0-3.0); HEMATOCRIT 28.2 % (36.0-47.0); HEMOGLOBIN 8.7 g/dl (12.0-15.5); LYMPH # 0.3 10^3/uL (1.5-5.0); LYMPH % 5.8 % (24.0-44.0); MEAN CORPUSCULAR HEMOGLOBIN 30.4 pg (27.0-33.0); MEAN CORPUSCULAR HGB CONC 30.9 g/dl (32.0-36.5); MEAN CORPUSCULAR VOLUME 98.6 fl (80.0-96.0); MONO # 0.4 10^3/uL (0.0-0.8); MONO % 8.3 % (2.0-8.0); NEUTROPHILS # 3.6 10^3/uL (1.5-8.5); NEUTROPHILS % 80.7 % (36.0-66.0); PLATELET COUNT, AUTOMATED 286 10^3/uL (150-450); RED BLOOD COUNT 2.86 10^6/uL (4.00-5.40); WHITE BLOOD COUNT 4.5 10^3/uL (4.0-10.0)
[2022-05-28 10:27] LABS: BLOOD UREA NITROGEN 27 MG/DL (9-23); CALCIUM LEVEL 10.4 MG/DL (8.3-10.6); CARBON DIOXIDE LEVEL 27 MMOL/L (20-31); CHLORIDE LEVEL 101 MMOL/L (98-107); GLOMERULAR FILTRATION RATE > 60.0 (>39); GLUCOSE, FASTING 116 MG/DL (74-106); POTASSIUM SERUM 4.3 MMOL/L (3.5-5.1); SODIUM LEVEL 135 MMOL/L (136-145)
[2022-05-28] MEDS: PANTOPRAZOLE 40MG TAB (PROTONIX) PO SCH ×2 (11:56→20:55)
[2022-05-28] MEDS: VITAMIN E 400 INTERNATIONAL UNITS CAP PO SCH (11:56)
[2022-05-28] MEDS: cloNIDine 0.1MG TABLET PO SCH ×3 (11:57→20:59)
[2022-05-28] MEDS: ASPIRIN 81MG ENTERIC TABLET PO SCH ×2 (11:57→20:55)
[2022-05-28] MEDS: FOLIC ACID 1MG TAB PO SCH (11:57)
[2022-05-28] MEDS: DOCUSATE SODIUM 100MG CAPSULE PO SCH ×2 (11:58→20:55)
[2022-05-28] MEDS: VITAMIN D 1,000 INTERNATIONAL UNITS TABLET PO SCH (11:58)
[2022-05-28] MEDS: MELOXICAM (MOBIC) 7.5 MG TAB PO PRN (11:58)
[2022-05-28] MEDS: HYDROXYCHLOROQUINE 200 MG TAB PO SCH ×2 (11:59→20:55)
[2022-05-28] MEDS: FLUoxetine 20MG CAP PO SCH (11:59)
[2022-05-28 14:00] VITALS: BP 143/61
[2022-05-28 20:00] VITALS: BP 122/76
[2022-05-28] MEDS: SENNA 8.6 MG TAB (SENOKOT) PO SCH (20:55)
[2022-05-28] MEDS: VALSARTAN 40MG TABLET (DIOVAN) PO SCH (20:56)
[2022-05-29] VITALS (7 sets, daily range): BP systolic 130–142; BP diastolic 58–88
[2022-05-29] MEDS: NEBIVOLOL 5 MG TAB (BYSTOLIC) PO SCH ×2 (05:20→19:54)
[2022-05-29] MEDS: **hydrALAZINE** 50 MG TAB PO SCH ×5 (05:20→23:52)
[2022-05-29] MEDS: SUCRALFATE 1 GM TAB PO SCH ×4 (07:30→19:54)
[2022-05-29] MEDS: PANTOPRAZOLE 40MG TAB (PROTONIX) PO SCH ×2 (08:44→20:53)
[2022-05-29] MEDS: DOCUSATE SODIUM 100MG CAPSULE PO SCH ×2 (08:44→20:54)
[2022-05-29] MEDS: VITAMIN D 1,000 INTERNATIONAL UNITS TABLET PO SCH (08:45)
[2022-05-29] MEDS: cloNIDine 0.1MG TABLET PO SCH ×3 (08:45→20:54)
[2022-05-29] MEDS: FLUoxetine 20MG CAP PO SCH (08:45)
[2022-05-29] MEDS: VITAMIN E 400 INTERNATIONAL UNITS CAP PO SCH (08:45)
[2022-05-29] MEDS: ASPIRIN 81MG ENTERIC TABLET PO SCH ×2 (08:45→20:52)
[2022-05-29] MEDS: FOLIC ACID 1MG TAB PO SCH (08:45)
[2022-05-29] MEDS: HYDROXYCHLOROQUINE 200 MG TAB PO SCH ×2 (08:50→20:53)
[2022-05-29] MEDS: METAMUCIL (PSYLLIUM) PACKET PO SCH ×2 (08:51→19:54)
[2022-05-29] MEDS: ACETAMINOPHEN 500 MG TAB PO SCH ×3 (08:52→19:55)
[2022-05-29] MEDS: REMEDY PHYTOPLEX Z-GUARD PASTE 113GM TUBE (FROM STOREROOM PRODUCT) TOP SCH ×3 (08:53→19:55)
[2022-05-29] MEDS: VALSARTAN 40MG TABLET (DIOVAN) PO SCH (20:53)
[2022-05-29] MEDS: SENNA 8.6 MG TAB (SENOKOT) PO SCH (20:54)
[2022-05-30] MEDS: NEBIVOLOL 5 MG TAB (BYSTOLIC) PO SCH ×3 (05:26→21:54)
[2022-05-30] MEDS: **hydrALAZINE** 50 MG TAB PO SCH ×4 (05:30→23:59)
[2022-05-30 06:00] VITALS: BP 130/74
[2022-05-30] MEDS: SUCRALFATE 1 GM TAB PO SCH ×4 (07:12→21:54)
[2022-05-30] MEDS: METAMUCIL (PSYLLIUM) PACKET PO SCH ×2 (07:12→21:00)
[2022-05-30] MEDS: ACETAMINOPHEN 500 MG TAB PO SCH ×3 (07:13→21:00)
[2022-05-30] MEDS: REMEDY PHYTOPLEX Z-GUARD PASTE 113GM TUBE (FROM STOREROOM PRODUCT) TOP SCH ×3 (07:13→21:55)
[2022-05-30] MEDS: DOCUSATE SODIUM 100MG CAPSULE PO SCH ×2 (07:13→21:00)
[2022-05-30] MEDS: cloNIDine 0.1MG TABLET PO SCH ×3 (09:05→21:54)
[2022-05-30] MEDS: ASPIRIN 81MG ENTERIC TABLET PO SCH ×2 (09:06→21:54)
[2022-05-30] MEDS: VITAMIN D 1,000 INTERNATIONAL UNITS TABLET PO SCH (09:06)
[2022-05-30] MEDS: PANTOPRAZOLE 40MG TAB (PROTONIX) PO SCH ×2 (09:06→21:54)
[2022-05-30] MEDS: VITAMIN E 400 INTERNATIONAL UNITS CAP PO SCH (09:06)
[2022-05-30] MEDS: HYDROXYCHLOROQUINE 200 MG TAB PO SCH ×2 (09:06→21:53)
[2022-05-30] MEDS: FLUoxetine 20MG CAP PO SCH (09:07)
[2022-05-30] MEDS: FOLIC ACID 1MG TAB PO SCH (09:07)
[2022-05-30 10:00] VITALS: BP 130/58
[2022-05-30 14:09] VITALS: BP 110/60
[2022-05-30 16:58] VITALS: BP 140/62
[2022-05-30 20:00] VITALS: BP 166/72
[2022-05-30] MEDS: SENNA 8.6 MG TAB (SENOKOT) PO SCH (21:00)
[2022-05-30] MEDS: VALSARTAN 40MG TABLET (DIOVAN) PO SCH (21:54)
[2022-05-30] MEDS: oxyCODONE 5MG TAB PO PRN (22:21)
[2022-05-30 23:58] VITALS: BP 122/78
[2022-05-31] VITALS (7 sets, daily range): BP systolic 118–168; BP diastolic 56–72
[2022-05-31 05:46] LABS: BASO % 0.8 % (0.0-1.0); EOS # 0.2 10^3/uL (0.0-0.5); EOS % 4.6 % (0.0-3.0); HEMATOCRIT 24.4 % (36.0-47.0); HEMOGLOBIN 7.9 g/dl (12.0-15.5); LYMPH # 0.5 10^3/uL (1.5-5.0); LYMPH % 12.4 % (24.0-44.0); MEAN CORPUSCULAR HEMOGLOBIN 31.2 pg (27.0-33.0); MEAN CORPUSCULAR HGB CONC 32.4 g/dl (32.0-36.5); MEAN CORPUSCULAR VOLUME 96.4 fl (80.0-96.0); MONO # 0.5 10^3/uL (0.0-0.8); MONO % 14.3 % (2.0-8.0); NEUTROPHILS # 2.5 10^3/uL (1.5-8.5); NEUTROPHILS % 67.4 % (36.0-66.0); PLATELET COUNT, AUTOMATED 215 10^3/uL (150-450); RED BLOOD COUNT 2.53 10^6/uL (4.00-5.40); WHITE BLOOD COUNT 3.7 10^3/uL (4.0-10.0)
[2022-05-31] MEDS: **hydrALAZINE** 50 MG TAB PO SCH ×4 (06:00→18:19)
[2022-05-31] MEDS: NEBIVOLOL 5 MG TAB (BYSTOLIC) PO SCH ×2 (06:00→21:00)
[2022-05-31 06:22] LABS: BLOOD UREA NITROGEN 22 MG/DL (9-23); CALCIUM LEVEL 8.9 MG/DL (8.3-10.6); CARBON DIOXIDE LEVEL 28 MMOL/L (20-31); CHLORIDE LEVEL 101 MMOL/L (98-107); CREATININE FOR GFR 0.88 MG/DL (0.55-1.30); GLOMERULAR FILTRATION RATE > 60.0 (>39); GLUCOSE, FASTING 125 MG/DL (74-106); POTASSIUM SERUM 4.1 MMOL/L (3.5-5.1); SODIUM LEVEL 136 MMOL/L (136-145)
[2022-05-31] MEDS: ASPIRIN 81MG ENTERIC TABLET PO SCH ×2 (08:12→21:06)
[2022-05-31] MEDS: SUCRALFATE 1 GM TAB PO SCH ×4 (08:12→21:06)
[2022-05-31] MEDS: DOCUSATE SODIUM 100MG CAPSULE PO SCH ×2 (08:12→21:06)
[2022-05-31] MEDS: FOLIC ACID 1MG TAB PO SCH (08:13)
[2022-05-31] MEDS: VITAMIN E 400 INTERNATIONAL UNITS CAP PO SCH (08:13)
[2022-05-31] MEDS: FLUoxetine 20MG CAP PO SCH (08:13)
[2022-05-31] MEDS: PANTOPRAZOLE 40MG TAB (PROTONIX) PO SCH ×2 (08:13→21:06)
[2022-05-31] MEDS: HYDROXYCHLOROQUINE 200 MG TAB PO SCH ×2 (08:13→21:06)
[2022-05-31] MEDS: VITAMIN D 1,000 INTERNATIONAL UNITS TABLET PO SCH (08:13)
[2022-05-31] MEDS: cloNIDine 0.1MG TABLET PO SCH ×3 (08:14→21:06)
[2022-05-31] MEDS: METAMUCIL (PSYLLIUM) PACKET PO SCH ×2 (08:14→21:00)
[2022-05-31] MEDS: ACETAMINOPHEN 500 MG TAB PO SCH ×3 (08:14→21:00)
[2022-05-31] MEDS: REMEDY PHYTOPLEX Z-GUARD PASTE 113GM TUBE (FROM STOREROOM PRODUCT) TOP SCH ×3 (08:14→21:07)
[2022-05-31] MEDS: VALSARTAN 40MG TABLET (DIOVAN) PO SCH (21:06)
[2022-05-31] MEDS: SENNA 8.6 MG TAB (SENOKOT) PO SCH (21:06)
[2022-06-01] VITALS: BP 142/72
[2022-06-01] MEDS: **hydrALAZINE** 50 MG TAB PO SCH ×5 (00:22→23:58)
[2022-06-01 06:00] VITALS: BP 140/86
[2022-06-01] MEDS: NEBIVOLOL 5 MG TAB (BYSTOLIC) PO SCH ×2 (06:00→20:50)
[2022-06-01 07:30] LABS: BASO % 0.3 % (0.0-1.0); EOS # 0.1 10^3/uL (0.0-0.5); EOS % 3.4 % (0.0-3.0); HEMATOCRIT 27.6 % (36.0-47.0); HEMOGLOBIN 8.7 g/dl (12.0-15.5); LYMPH # 0.3 10^3/uL (1.5-5.0); LYMPH % 8.8 % (24.0-44.0); MEAN CORPUSCULAR HEMOGLOBIN 30.9 pg (27.0-33.0); MEAN CORPUSCULAR HGB CONC 31.5 g/dl (32.0-36.5); MEAN CORPUSCULAR VOLUME 97.9 fl (80.0-96.0); MONO # 0.6 10^3/uL (0.0-0.8); MONO % 14.5 % (2.0-8.0); NEUTROPHILS # 2.8 10^3/uL (1.5-8.5); NEUTROPHILS % 72.7 % (36.0-66.0); PLATELET COUNT, AUTOMATED 209 10^3/uL (150-450); RED BLOOD COUNT 2.82 10^6/uL (4.00-5.40); WHITE BLOOD COUNT 3.9 10^3/uL (4.0-10.0)
[2022-06-01] MEDS: SUCRALFATE 1 GM TAB PO SCH ×4 (07:30→20:51)
[2022-06-01] MEDS: FOLIC ACID 1MG TAB PO SCH (08:10)
[2022-06-01] MEDS: ASPIRIN 81MG ENTERIC TABLET PO SCH ×2 (08:10→20:51)
[2022-06-01] MEDS: FLUoxetine 20MG CAP PO SCH (08:10)
[2022-06-01] MEDS: PANTOPRAZOLE 40MG TAB (PROTONIX) PO SCH ×2 (08:10→20:51)
[2022-06-01] MEDS: DOCUSATE SODIUM 100MG CAPSULE PO SCH ×2 (08:10→20:50)
[2022-06-01] MEDS: VITAMIN E 400 INTERNATIONAL UNITS CAP PO SCH (08:10)
[2022-06-01] MEDS: HYDROXYCHLOROQUINE 200 MG TAB PO SCH ×2 (08:11→20:49)
[2022-06-01] MEDS: VITAMIN D 1,000 INTERNATIONAL UNITS TABLET PO SCH (08:11)
[2022-06-01] MEDS: cloNIDine 0.1MG TABLET PO SCH ×3 (08:11→20:50)
[2022-06-01] MEDS: ACETAMINOPHEN 500 MG TAB PO SCH ×3 (08:11→21:00)
[2022-06-01] MEDS: REMEDY PHYTOPLEX Z-GUARD PASTE 113GM TUBE (FROM STOREROOM PRODUCT) TOP SCH ×3 (08:16→20:55)
[2022-06-01] MEDS: METAMUCIL (PSYLLIUM) PACKET PO SCH ×2 (08:17→21:00)
[2022-06-01 14:00] VITALS: BP 144/66
[2022-06-01] MEDS: oxyCODONE 5MG TAB PO PRN (14:18)
[2022-06-01] MEDS: DICLOFENAC EPOLAMINE 1.3 % PATCH TOP SCH ×2 (14:36→20:51)
[2022-06-01 20:00] VITALS: BP 148/64
[2022-06-01] MEDS: VALSARTAN 40MG TABLET (DIOVAN) PO SCH (20:50)
[2022-06-01] MEDS: SENNA 8.6 MG TAB (SENOKOT) PO SCH (20:51)
[2022-06-02] VITALS: BP 138/60
[2022-06-02 03:52] VITALS: BP 148/67
[2022-06-02] MEDS: NEBIVOLOL 5 MG TAB (BYSTOLIC) PO SCH ×2 (05:24→20:01)
[2022-06-02] MEDS: **hydrALAZINE** 50 MG TAB PO SCH ×3 (05:24→18:13)
[2022-06-02 06:40] LABS: BASO % 0.5 % (0.0-1.0); EOS # 0.2 10^3/uL (0.0-0.5); EOS % 4.4 % (0.0-3.0); HEMOGLOBIN 8.3 g/dl (12.0-15.5); LYMPH # 0.3 10^3/uL (1.5-5.0); MEAN CORPUSCULAR HEMOGLOBIN 30.7 pg (27.0-33.0); MEAN CORPUSCULAR HGB CONC 31.9 g/dl (32.0-36.5); MEAN CORPUSCULAR VOLUME 96.3 fl (80.0-96.0); MONO # 0.6 10^3/uL (0.0-0.8); MONO % 14.2 % (2.0-8.0); NEUTROPHILS # 2.8 10^3/uL (1.5-8.5); NEUTROPHILS % 72.6 % (36.0-66.0); PLATELET COUNT, AUTOMATED 203 10^3/uL (150-450); WHITE BLOOD COUNT 3.9 10^3/uL (4.0-10.0)
[2022-06-02 07:31] LABS: BLOOD UREA NITROGEN 18 MG/DL (9-23); CALCIUM LEVEL 9.4 MG/DL (8.3-10.6); CARBON DIOXIDE LEVEL 30 MMOL/L (20-31); CHLORIDE LEVEL 100 MMOL/L (98-107); GLOMERULAR FILTRATION RATE > 60.0 (>39); GLUCOSE, FASTING 133 MG/DL (74-106); SODIUM LEVEL 135 MMOL/L (136-145)
[2022-06-02] MEDS: DICLOFENAC EPOLAMINE 1.3 % PATCH TOP SCH ×2 (09:00→19:54)
[2022-06-02] MEDS: ACETAMINOPHEN 500 MG TAB PO SCH ×3 (09:00→19:53)
[2022-06-02] MEDS: REMEDY PHYTOPLEX Z-GUARD PASTE 113GM TUBE (FROM STOREROOM PRODUCT) TOP SCH ×3 (09:00→19:53)
[2022-06-02] MEDS: DOCUSATE SODIUM 100MG CAPSULE PO SCH ×2 (09:22→19:52)
[2022-06-02] MEDS: VITAMIN D 1,000 INTERNATIONAL UNITS TABLET PO SCH (09:22)
[2022-06-02] MEDS: SUCRALFATE 1 GM TAB PO SCH ×4 (09:22→20:04)
[2022-06-02] MEDS: ASPIRIN 81MG ENTERIC TABLET PO SCH ×2 (09:22→20:00)
[2022-06-02] MEDS: FOLIC ACID 1MG TAB PO SCH (09:23)
[2022-06-02] MEDS: cloNIDine 0.1MG TABLET PO SCH ×3 (09:23→20:02)
[2022-06-02] MEDS: FLUoxetine 20MG CAP PO SCH (09:24)
[2022-06-02] MEDS: PANTOPRAZOLE 40MG TAB (PROTONIX) PO SCH ×2 (09:24→20:00)
[2022-06-02] MEDS: VITAMIN E 400 INTERNATIONAL UNITS CAP PO SCH (09:24)
[2022-06-02] MEDS: HYDROXYCHLOROQUINE 200 MG TAB PO SCH ×2 (09:24→20:00)
[2022-06-02] MEDS: METAMUCIL (PSYLLIUM) PACKET PO SCH ×2 (09:24→19:52)
[2022-06-02 14:00] VITALS: BP 137/65
[2022-06-02] MEDS: SENNA 8.6 MG TAB (SENOKOT) PO SCH (19:53)
[2022-06-02 20:00] VITALS: BP 138/82
[2022-06-02] MEDS: VALSARTAN 40MG TABLET (DIOVAN) PO SCH (20:02)
[2022-06-03] MEDS: **hydrALAZINE** 50 MG TAB PO SCH ×3 (00:14→12:19)
[2022-06-03] MEDS: NEBIVOLOL 5 MG TAB (BYSTOLIC) PO SCH ×2 (05:33→20:30)
[2022-06-03 05:58] VITALS: BP 198/74
[2022-06-03 06:51] VITALS: BP 156/74
[2022-06-03] MEDS: PANTOPRAZOLE 40MG TAB (PROTONIX) PO SCH ×2 (08:30→18:47)
[2022-06-03] MEDS: FLUoxetine 20MG CAP PO SCH (08:30)
[2022-06-03] MEDS: HYDROXYCHLOROQUINE 200 MG TAB PO SCH ×2 (08:30→20:34)
[2022-06-03] MEDS: cloNIDine 0.1MG TABLET PO SCH ×3 (08:33→20:34)
[2022-06-03] MEDS: FOLIC ACID 1MG TAB PO SCH (08:33)
[2022-06-03] MEDS: ASPIRIN 81MG ENTERIC TABLET PO SCH ×2 (08:33→20:34)
[2022-06-03] MEDS: DOCUSATE SODIUM 100MG CAPSULE PO SCH ×2 (08:33→20:34)
[2022-06-03] MEDS: VITAMIN E 400 INTERNATIONAL UNITS CAP PO SCH (08:41)
[2022-06-03] MEDS: SUCRALFATE 1 GM TAB PO SCH ×4 (08:42→20:34)
[2022-06-03] MEDS: DICLOFENAC EPOLAMINE 1.3 % PATCH TOP SCH ×3 (08:42→21:00)
[2022-06-03] MEDS: METAMUCIL (PSYLLIUM) PACKET PO SCH ×2 (08:42→20:34)
[2022-06-03] MEDS: VITAMIN D 1,000 INTERNATIONAL UNITS TABLET PO SCH (08:42)
[2022-06-03] MEDS: REMEDY PHYTOPLEX Z-GUARD PASTE 113GM TUBE (FROM STOREROOM PRODUCT) TOP SCH ×3 (08:42→20:35)
[2022-06-03] MEDS: ACETAMINOPHEN 500 MG TAB PO SCH ×3 (08:43→20:32)
[2022-06-03 14:00] VITALS: BP 136/62
[2022-06-03] MEDS ORDERED: METHOTREXATE 2.5 MG TAB (J8610 PER 2.5MG) PO SCH (18:00)
[2022-06-03 20:32] VITALS: BP 134/60
[2022-06-03] MEDS: VALSARTAN 80 MG TAB (DIOVAN) PO SCH (20:33)
[2022-06-03] MEDS: SENNA 8.6 MG TAB (SENOKOT) PO SCH (20:34)
[2022-06-03] MEDS ORDERED: VALSARTAN 80 MG TAB (DIOVAN) PO SCH (21:00)
[2022-06-03] MEDS: **hydrALAZINE HCL** 25 MG TAB PO SCH (22:02)
[2022-06-04 05:43] VITALS: BP 142/60
[2022-06-04] MEDS: **hydrALAZINE HCL** 25 MG TAB PO SCH ×3 (05:54→21:13)
[2022-06-04] MEDS: NEBIVOLOL 5 MG TAB (BYSTOLIC) PO SCH ×2 (05:55→21:12)
[2022-06-04] MEDS: DICLOFENAC EPOLAMINE 1.3 % PATCH TOP SCH ×2 (05:59→21:13)
[2022-06-04 07:16] LABS: BASO % 0.3 % (0.0-1.0); EOS # 0.2 10^3/uL (0.0-0.5); EOS % 4.9 % (0.0-3.0); HEMATOCRIT 25.9 % (36.0-47.0); HEMOGLOBIN 8.5 g/dl (12.0-15.5); LYMPH # 0.3 10^3/uL (1.5-5.0); MEAN CORPUSCULAR HEMOGLOBIN 31.1 pg (27.0-33.0); MEAN CORPUSCULAR HGB CONC 32.8 g/dl (32.0-36.5); MEAN CORPUSCULAR VOLUME 94.9 fl (80.0-96.0); MONO # 0.5 10^3/uL (0.0-0.8); MONO % 12.6 % (2.0-8.0); NEUTROPHILS # 2.9 10^3/uL (1.5-8.5); NEUTROPHILS % 73.9 % (36.0-66.0); PLATELET COUNT, AUTOMATED 179 10^3/uL (150-450); RED BLOOD COUNT 2.73 10^6/uL (4.00-5.40); WHITE BLOOD COUNT 3.9 10^3/uL (4.0-10.0)
[2022-06-04] MEDS: SUCRALFATE 1 GM TAB PO SCH ×4 (07:30→21:13)
[2022-06-04 07:46] LABS: BLOOD UREA NITROGEN 22 MG/DL (9-23); CALCIUM LEVEL 9.4 MG/DL (8.3-10.6); CARBON DIOXIDE LEVEL 28 MMOL/L (20-31); CHLORIDE LEVEL 99 MMOL/L (98-107); CREATININE FOR GFR 0.93 MG/DL (0.55-1.30); GLOMERULAR FILTRATION RATE > 60.0 (>39); GLUCOSE, FASTING 132 MG/DL (74-106); POTASSIUM SERUM 3.8 MMOL/L (3.5-5.1); SODIUM LEVEL 136 MMOL/L (136-145)
[2022-06-04] MEDS: ACETAMINOPHEN 500 MG TAB PO SCH ×3 (09:00→21:00)
[2022-06-04] MEDS: METAMUCIL (PSYLLIUM) PACKET PO SCH ×2 (09:18→21:30)
[2022-06-04] MEDS: VITAMIN D 1,000 INTERNATIONAL UNITS TABLET PO SCH (09:18)
[2022-06-04] MEDS: DOCUSATE SODIUM 100MG CAPSULE PO SCH ×2 (09:18→21:13)
[2022-06-04] MEDS: FLUoxetine 20MG CAP PO SCH (09:18)
[2022-06-04] MEDS: HYDROXYCHLOROQUINE 200 MG TAB PO SCH ×2 (09:18→21:12)
[2022-06-04] MEDS: cloNIDine 0.1MG TABLET PO SCH ×2 (09:19→21:12)
[2022-06-04] MEDS: FOLIC ACID 1MG TAB PO SCH (09:19)
[2022-06-04] MEDS: ASPIRIN 81MG ENTERIC TABLET PO SCH ×2 (09:19→21:13)
[2022-06-04] MEDS: PANTOPRAZOLE 40MG TAB (PROTONIX) PO SCH (09:19)
[2022-06-04] MEDS: REMEDY PHYTOPLEX Z-GUARD PASTE 113GM TUBE (FROM STOREROOM PRODUCT) TOP SCH ×3 (09:20→21:31)
[2022-06-04] MEDS: VITAMIN E 400 INTERNATIONAL UNITS CAP PO SCH (09:20)
[2022-06-04 14:00] VITALS: BP 144/69
[2022-06-04 19:57] VITALS: BP 128/62
[2022-06-04] MEDS: VALSARTAN 80 MG TAB (DIOVAN) PO SCH (21:11)
[2022-06-04] MEDS: SENNA 8.6 MG TAB (SENOKOT) PO SCH (21:12)
[2022-06-05 05:20] VITALS: BP 142/62
[2022-06-05] MEDS: **hydrALAZINE HCL** 25 MG TAB PO SCH ×3 (05:52→21:59)
[2022-06-05] MEDS: NEBIVOLOL 5 MG TAB (BYSTOLIC) PO SCH ×2 (05:53→21:00)
[2022-06-05 08:04] VITALS: BP 164/70
[2022-06-05] MEDS: ASPIRIN 81MG ENTERIC TABLET PO SCH ×2 (08:05→21:57)
[2022-06-05] MEDS: VITAMIN E 400 INTERNATIONAL UNITS CAP PO SCH (08:05)
[2022-06-05] MEDS: METAMUCIL (PSYLLIUM) PACKET PO SCH ×2 (08:05→22:00)
[2022-06-05] MEDS: FLUoxetine 20MG CAP PO SCH (08:05)
[2022-06-05] MEDS: SUCRALFATE 1 GM TAB PO SCH ×4 (08:06→21:57)
[2022-06-05] MEDS: cloNIDine 0.1MG TABLET PO SCH ×2 (08:06→21:59)
[2022-06-05] MEDS: PANTOPRAZOLE 40MG TAB (PROTONIX) PO SCH (08:06)
[2022-06-05] MEDS: FOLIC ACID 1MG TAB PO SCH (08:07)
[2022-06-05] MEDS: VITAMIN D 1,000 INTERNATIONAL UNITS TABLET PO SCH (08:07)
[2022-06-05] MEDS: DOCUSATE SODIUM 100MG CAPSULE PO SCH ×2 (08:07→21:57)
[2022-06-05] MEDS: HYDROXYCHLOROQUINE 200 MG TAB PO SCH ×2 (08:07→21:57)
[2022-06-05] MEDS: ACETAMINOPHEN 500 MG TAB PO SCH ×3 (08:08→22:00)
[2022-06-05] MEDS: DICLOFENAC EPOLAMINE 1.3 % PATCH TOP SCH ×2 (08:09→22:02)
[2022-06-05] MEDS: REMEDY PHYTOPLEX Z-GUARD PASTE 113GM TUBE (FROM STOREROOM PRODUCT) TOP SCH ×3 (08:09→22:01)
[2022-06-05 14:00] VITALS: BP 162/68
[2022-06-05 20:20] VITALS: BP 158/74
[2022-06-05] MEDS: VALSARTAN 80 MG TAB (DIOVAN) PO SCH (21:57)
[2022-06-05] MEDS: SENNA 8.6 MG TAB (SENOKOT) PO SCH (21:59)
[2022-06-06] MEDS: **hydrALAZINE HCL** 25 MG TAB PO SCH ×2 (05:36→14:25)
[2022-06-06] MEDS: NEBIVOLOL 5 MG TAB (BYSTOLIC) PO SCH ×2 (05:36→21:06)
[2022-06-06 06:00] VITALS: BP 148/81
[2022-06-06] MEDS: DICLOFENAC EPOLAMINE 1.3 % PATCH TOP SCH ×2 (08:26→21:06)
[2022-06-06] MEDS: METAMUCIL (PSYLLIUM) PACKET PO SCH ×2 (08:27→21:00)
[2022-06-06] MEDS: HYDROXYCHLOROQUINE 200 MG TAB PO SCH ×2 (08:27→21:05)
[2022-06-06] MEDS: PANTOPRAZOLE 40MG TAB (PROTONIX) PO SCH (08:27)
[2022-06-06] MEDS: FOLIC ACID 1MG TAB PO SCH (08:27)
[2022-06-06] MEDS: DOCUSATE SODIUM 100MG CAPSULE PO SCH ×2 (08:27→21:05)
[2022-06-06] MEDS: VITAMIN E 400 INTERNATIONAL UNITS CAP PO SCH (08:28)
[2022-06-06] MEDS: VITAMIN D 1,000 INTERNATIONAL UNITS TABLET PO SCH (08:28)
[2022-06-06] MEDS: FLUoxetine 20MG CAP PO SCH (08:28)
[2022-06-06] MEDS: SUCRALFATE 1 GM TAB PO SCH ×4 (08:28→21:04)
[2022-06-06] MEDS: ACETAMINOPHEN 500 MG TAB PO SCH ×4 (08:28→21:00)
[2022-06-06] MEDS: ASPIRIN 81MG ENTERIC TABLET PO SCH ×2 (08:29→21:05)
[2022-06-06] MEDS: cloNIDine 0.1MG TABLET PO SCH ×2 (08:29→09:00)
[2022-06-06] MEDS: REMEDY PHYTOPLEX Z-GUARD PASTE 113GM TUBE (FROM STOREROOM PRODUCT) TOP SCH ×3 (09:00→21:06)
[2022-06-06 14:00] VITALS: BP 169/75
[2022-06-06 18:00] VITALS: BP 192/90
[2022-06-06] MEDS: VALSARTAN 80 MG TAB (DIOVAN) PO SCH (21:04)
[2022-06-06] MEDS: SENNA 8.6 MG TAB (SENOKOT) PO SCH (21:04)
[2022-06-06] MEDS: **hydrALAZINE** 50 MG TAB PO SCH (22:13)
[2022-06-06 23:00] VITALS: BP 170/78
[2022-06-07] MEDS: NEBIVOLOL 5 MG TAB (BYSTOLIC) PO SCH (05:50)
[2022-06-07] MEDS: **hydrALAZINE** 50 MG TAB PO SCH (05:52)
[2022-06-07 06:00] VITALS: BP 174/92
[2022-06-07 06:53] VITALS: BP 144/80
[2022-06-07 07:09] LABS: BASO % 0.5 % (0.0-1.0); EOS # 0.2 10^3/uL (0.0-0.5); EOS % 3.8 % (0.0-3.0); HEMATOCRIT 26.2 % (36.0-47.0); HEMOGLOBIN 8.5 g/dl (12.0-15.5); LYMPH # 0.3 10^3/uL (1.5-5.0); LYMPH % 7.3 % (24.0-44.0); MEAN CORPUSCULAR HEMOGLOBIN 31.1 pg (27.0-33.0); MEAN CORPUSCULAR HGB CONC 32.4 g/dl (32.0-36.5); MONO # 0.4 10^3/uL (0.0-0.8); MONO % 9.3 % (2.0-8.0); NEUTROPHILS # 3.1 10^3/uL (1.5-8.5); NEUTROPHILS % 78.6 % (36.0-66.0); PLATELET COUNT, AUTOMATED 177 10^3/uL (150-450); RED BLOOD COUNT 2.73 10^6/uL (4.00-5.40)
[2022-06-07 07:35] LABS: BLOOD UREA NITROGEN 14 MG/DL (9-23); CALCIUM LEVEL 9.4 MG/DL (8.3-10.6); CARBON DIOXIDE LEVEL 26 MMOL/L (20-31); CHLORIDE LEVEL 102 MMOL/L (98-107); CREATININE FOR GFR 0.71 MG/DL (0.55-1.30); GLOMERULAR FILTRATION RATE > 60.0 (>39); GLUCOSE, FASTING 123 MG/DL (74-106); POTASSIUM SERUM 3.8 MMOL/L (3.5-5.1); SODIUM LEVEL 137 MMOL/L (136-145)
[2022-06-07 08:26] VITALS: BP 144/80
[2022-06-07] MEDS: SUCRALFATE 1 GM TAB PO SCH (08:26)
[2022-06-07] MEDS: FLUoxetine 20MG CAP PO SCH (08:26)
[2022-06-07] MEDS: cloNIDine 0.1MG TABLET PO SCH (08:26)
[2022-06-07] MEDS: FOLIC ACID 1MG TAB PO SCH (08:26)
[2022-06-07] MEDS: ASPIRIN 81MG ENTERIC TABLET PO SCH (08:26)
[2022-06-07] MEDS: PANTOPRAZOLE 40MG TAB (PROTONIX) PO SCH (08:27)
[2022-06-07] MEDS: METAMUCIL (PSYLLIUM) PACKET PO SCH (08:27)
[2022-06-07] MEDS: DICLOFENAC EPOLAMINE 1.3 % PATCH TOP SCH (08:27)
[2022-06-07] MEDS: DOCUSATE SODIUM 100MG CAPSULE PO SCH (08:27)
[2022-06-07] MEDS: VITAMIN D 1,000 INTERNATIONAL UNITS TABLET PO SCH (08:27)
[2022-06-07] MEDS: VITAMIN E 400 INTERNATIONAL UNITS CAP PO SCH (08:30)
[2022-06-07] MEDS: HYDROXYCHLOROQUINE 200 MG TAB PO SCH (08:30)
[2022-06-07] MEDS: REMEDY PHYTOPLEX Z-GUARD PASTE 113GM TUBE (FROM STOREROOM PRODUCT) TOP SCH (08:30)
[2022-06-07] MEDS: ACETAMINOPHEN 500 MG TAB PO SCH (08:30)
[2022-06-07] MEDS ORDERED: CHLORTHALIDONE 25 MG TAB PO SCH (09:00)
[2022-06-07] MEDS ORDERED: VALS1TAB68 PO (09:43)
[2022-06-07] MEDS ORDERED: AMLO1TAB25 PO (09:43)
[2022-06-07] MEDS ORDERED: HYDR-3911 PO (09:43)
[2022-06-07] MEDS ORDERED: SUCR1TA PO (09:43)
[2022-06-07] MEDS ORDERED: NEBI5TAB PO (09:43)
[2022-06-07] MEDS ORDERED: FLUO20CA22 PO (09:43)
[2022-06-07] MEDS ORDERED: CHLO25TA PO (09:43)
[2022-06-07] MEDS ORDERED: HYDR200T3 PO (09:43)
[2022-06-07] MEDS ORDERED: HYDR100T PO (10:12)
[2022-06-07] MEDS ORDERED: PANT40TA29 PO (10:12)
[2022-06-07] MEDS ORDERED: ASPI81CH8 PO (10:12)
== END 2022-06-07 12:45 | disposition home or self-care (01) | DRG 950 ==
LOC: M PM&R 20:10
PROVIDERS: ADMIT Physical Medicine & Rehabilitation; ATTEND Physical Medicine & Rehabilitation
DX: T84.020D Dislocation of internal right hip prosthesis, subsequent encounter (principal); D86.9 Sarcoidosis, unspecified; L93.0 Discoid lupus erythematosus; I12.9 Hypertensive chronic kidney disease with stage 1 through stage 4 chronic kidney disease, or unspecified chronic kidney disease; N18.9 Chronic kidney disease, unspecified; Z96.641 Presence of right artificial hip joint; Z74.09 Other reduced mobility; Z74.1 Need for assistance with personal care; Z96.653 Presence of artificial knee joint, bilateral; Z96.611 Presence of right artificial shoulder joint; Z96.612 Presence of left artificial shoulder joint; D53.9 Nutritional anemia, unspecified; K59.00 Constipation, unspecified; E55.9 Vitamin D deficiency, unspecified; F32.A Depression, unspecified; Z90.49 Acquired absence of other specified parts of digestive tract; Z79.82 Long term (current) use of aspirin; Z79.899 Other long term (current) drug therapy

== ENCOUNTER → 2022-06-14 | Outpatient (CLI) | payer MEDICARE, OTHER ==
[~2022-06-14] MED LIST changes: +ASPI81CH8 PO; +CHLO25TA PO; +COLA100C5 PO; +HYDR-3911 PO; +HYDR100T PO; +META1POW PO; +MIRA1POW3 PO; +MOM30SS2 PO; +PANT40TA29 PO; +SUCR1TA PO; +VALS1TAB68 PO
== END ==
LOC: M SOG 10:35
PROVIDERS: ATTEND Orthopaedic Surgery Adult Reconstructive Orthopaedic Surgery
DX: M25.551 Pain in right hip (principal); Z96.641 Presence of right artificial hip joint

== ENCOUNTER → 2022-07-07 | Outpatient (REF) | payer MEDICARE, OTHER | LOC: M LAB REF 16:29 | PROVIDERS: ATTEND Family Medicine | DX: M32.10 Systemic lupus erythematosus, organ or system involvement unspecified (principal) ==

== ENCOUNTER → 2022-08-17 | Outpatient (CLI) | payer MEDICARE, OTHER | LOC: M CARPUL 12:49 | PROVIDERS: ATTEND Internal Medicine Cardiovascular Disease | DX: R94.31 Abnormal electrocardiogram [ECG] [EKG] (principal) ==

== ENCOUNTER → 2022-12-08 | Outpatient (CLI) | payer MEDICARE, OTHER | LOC: M WHC 13:41 | PROVIDERS: ATTEND Family Medicine | DX: Z12.31 Encounter for screening mammogram for malignant neoplasm of breast (principal); N63.12 Unspecified lump in the right breast, upper inner quadrant | CPT/HCPCS: 76642; 77066; G0279 ==

== ENCOUNTER → 2023-01-03 | Outpatient (REF) | payer MEDICARE, OTHER ==
[~2023-01-03] MED LIST changes: -HYDR200T3 PO; +HYDR200T46 PO
== END ==
LOC: M LAB REF 16:11
PROVIDERS: ATTEND Family Medicine
DX: E07.9 Disorder of thyroid, unspecified (principal); E83.52 Hypercalcemia

== ENCOUNTER → 2023-02-22 | Outpatient (CLI) | payer MEDICARE, OTHER | LOC: M WHC 13:09 | PROVIDERS: ATTEND Family Medicine | DX: N63.10 Unspecified lump in the right breast, unspecified quadrant (principal) ==

== ENCOUNTER → 2023-03-03 | Outpatient (CLI) | payer MEDICARE, OTHER ==
[~2023-03-03] MED LIST changes: +ADV250INH INH; +FAMO40TA3 PO; +FERR325T3 PO; +MELO15TA28 PO
== END ==
LOC: M WHC 15:04
PROVIDERS: ATTEND Family Medicine
DX: N63.10 Unspecified lump in the right breast, unspecified quadrant (principal)

== ENCOUNTER → 2023-03-03 | Outpatient (CLI) | payer MEDICARE, OTHER ==
[~2023-03-03] MED LIST changes: +LIDOCAINE 1% MDV 20ML VIAL As Ordered ONE
[2023-03-03 14:40] VITALS: BP 122/66; O2SAT 100
== END ==
LOC: M IRPRO 12:58
PROVIDERS: ATTEND Family Medicine
DX: N63.12 Unspecified lump in the right breast, upper inner quadrant (principal)

== ENCOUNTER → 2023-08-26 | Outpatient (CLI) | payer MEDICARE, OTHER ==
[~2023-08-26] MED LIST changes: -HYDR-3911 PO; +HYDR50TA46 PO; -LIDOCAINE 1% MDV 20ML VIAL As Ordered ONE; -MIRA1POW3 PO; +MIRA33506 PO
[2023-08-26 14:37] LABS: CREATININE FOR GFR 1.18 MG/DL (0.55-1.30); GLOMERULAR FILTRATION RATE 47.3 (>39)
== END ==
LOC: M LAB 13:45
PROVIDERS: ATTEND Psychiatry & Neurology Neurology
DX: I10 Essential (primary) hypertension (principal)

== ENCOUNTER → 2023-09-05 | Outpatient (REF) | payer MEDICARE, OTHER ==
[2023-09-05 16:24] LABS: IONIZED CALCIUM 5.4 MG/DL (4.5-5.3)
[2023-09-05 17:22] LABS: C REACTIVE PROTEIN QUANTITATIV < 0.40 MG/DL (<1.0)
[2023-09-05 17:26] LABS: VITAMIN B12 LEVEL 523 PG/ML (211-911)
[2023-09-05 17:38] LABS: PTH INTACT 285.6 PG/ML (18.5-88.0)
== END ==
LOC: M LAB REF 16:02
PROVIDERS: ATTEND Family Medicine
DX: E83.52 Hypercalcemia (principal); G62.9 Polyneuropathy, unspecified

== ENCOUNTER → 2023-10-18 | Outpatient (CLI) | payer MEDICARE, OTHER | LOC: M WHC 16:04 | PROVIDERS: ATTEND Family Medicine | DX: Z12.31 Encounter for screening mammogram for malignant neoplasm of breast (principal); Z53.9 Procedure and treatment not carried out, unspecified reason ==

== ENCOUNTER → 2023-12-07 | Outpatient (REF) | payer MEDICARE, OTHER ==
[2023-12-07 16:41] LABS: IONIZED CALCIUM 5.3 MG/DL (4.5-5.3)
[2023-12-07 17:38] LABS: PTH INTACT 231.9 PG/ML (18.5-88.0)
== END ==
LOC: M LAB REF 16:20
PROVIDERS: ATTEND Family Medicine
DX: E83.52 Hypercalcemia (principal)

== ENCOUNTER → 2024-04-13 | Outpatient (REF) ==
[~2024-04-13] MED LIST changes: +FLUO-365 PO; -FLUO20CA22 PO; -NEBI5TAB PO; +NEBI5TAB2 PO
[2024-04-13 09:58] LABS: HEMOGLOBIN 8.8 g/dl (12.0-15.5); MEAN CORPUSCULAR HEMOGLOBIN 31.3 pg (27.0-33.0); MEAN CORPUSCULAR HGB CONC 32.6 g/dl (32.0-36.5); MEAN CORPUSCULAR VOLUME 96.1 fl (80.0-96.0); PLATELET COUNT, AUTOMATED 155 10^3/uL (150-450); RED BLOOD COUNT 2.81 10^6/uL (4.00-5.40); WHITE BLOOD COUNT 8.6 10^3/uL (4.0-10.0)
[2024-04-13 10:21] LABS: CALCIUM LEVEL 9.8 MG/DL (8.3-10.6); CREATININE FOR GFR 0.99 MG/DL (0.55-1.30); GLOMERULAR FILTRATION RATE 57.9 (>39); POTASSIUM SERUM 4.2 MMOL/L (3.5-5.1)
== END ==
PROVIDERS: ATTEND Physician Assistant
DX: I10 Essential (primary) hypertension (principal)

== ENCOUNTER → 2024-04-18 | Outpatient (REF) ==
[2024-04-18 08:53] LABS: MEAN CORPUSCULAR HEMOGLOBIN 31.1 pg (27.0-33.0); MEAN CORPUSCULAR HGB CONC 32.3 g/dl (32.0-36.5); MEAN CORPUSCULAR VOLUME 96.3 fl (80.0-96.0); PLATELET COUNT, AUTOMATED 275 10^3/uL (150-450); RED BLOOD COUNT 3.22 10^6/uL (4.00-5.40); WHITE BLOOD COUNT 12.5 10^3/uL (4.0-10.0)
[2024-04-18 09:29] LABS: CALCIUM LEVEL 10.7 MG/DL (8.3-10.6); CREATININE FOR GFR 1.02 MG/DL (0.55-1.30); GLOMERULAR FILTRATION RATE 55.9 (>39); PERCENT SATURATION 17.3 % (13.2-45.0); POTASSIUM SERUM 4.2 MMOL/L (3.5-5.1)
[2024-04-18 09:30] LABS: FERRITIN 164.7 NG/ML (7.3-270.7)
[2024-04-18 09:33] LABS: FOLATE 23.58 NG/ML (>5.4)
== END ==
PROVIDERS: ATTEND Physician Assistant
DX: I10 Essential (primary) hypertension (principal)

== ENCOUNTER → 2024-05-02 | Outpatient (REF) ==
[2024-05-02 10:15] LABS: HEMATOCRIT 31.3 % (36.0-47.0); HEMOGLOBIN 10.1 g/dl (12.0-15.5); MEAN CORPUSCULAR HEMOGLOBIN 31.1 pg (27.0-33.0); MEAN CORPUSCULAR HGB CONC 32.3 g/dl (32.0-36.5); MEAN CORPUSCULAR VOLUME 96.3 fl (80.0-96.0); PLATELET COUNT, AUTOMATED 165 10^3/uL (150-450); RED BLOOD COUNT 3.25 10^6/uL (4.00-5.40); WHITE BLOOD COUNT 7.1 10^3/uL (4.0-10.0)
== END ==
PROVIDERS: ATTEND Physician Assistant
DX: D64.9 Anemia, unspecified (principal)

== ENCOUNTER 2024-05-31 10:12 | Observation (INO) | payer MEDICARE, OTHER ==
[~2024-05-31] VITALS: Ht 165.1 cm; Wt 84.0 kg
[2024-05-31] MEDS ORDERED: SPIR50TA4 PO (10:29)
[2024-05-31] MEDS ORDERED: ATOR80TA59 PO (10:29)
[2024-05-31] MEDS ORDERED: NEBI10TA2 PO (10:29)
[2024-05-31] MEDS ORDERED: CLOP75TA2 PO (10:29)
[2024-05-31] MEDS ORDERED: ASPI81TA26 PO (12:04)
[2024-05-31] MEDS ORDERED: SUCR1TA PO (12:04)
[2024-05-31] MEDS ORDERED: PANT40TA29 PO (12:04)
[2024-05-31] MEDS ORDERED: VALS1TAB68 PO (12:04)
[2024-05-31] MEDS ORDERED: CHLO125TA PO (12:04)
[2024-05-31] MEDS ORDERED: HOME MED LIST COMPLETE! XX SCH (12:05)
[2024-05-31] MEDS: propofoL 200 MG/20 ML VIAL IV.PROC PRN (12:15)
[2024-05-31 14:10] LABS: HEMATOCRIT 30.5 % (36.0-47.0); MEAN CORPUSCULAR HEMOGLOBIN 30.4 pg (27.0-33.0); MEAN CORPUSCULAR HGB CONC 32.8 g/dl (32.0-36.5); MEAN CORPUSCULAR VOLUME 92.7 fl (80.0-96.0); PLATELET COUNT, AUTOMATED 187 10^3/uL (150-450); RED BLOOD COUNT 3.29 10^6/uL (4.00-5.40); WHITE BLOOD COUNT 9.9 10^3/uL (4.0-10.0)
[2024-05-31 14:35] LABS: ALBUMIN 3.2 G/DL (3.2-5.2); BILIRUBIN,TOTAL 0.5 MG/DL (0.3-1.2); CREATININE FOR GFR 1.02 MG/DL (0.55-1.30); GLOMERULAR FILTRATION RATE 55.9 (>39); POTASSIUM SERUM 3.8 MMOL/L (3.5-5.1); TOTAL PROTEIN 6.2 G/DL (5.7-8.2)
[2024-05-31] MEDS: **hydrALAZINE** 50 MG TAB PO ONE (16:19)
[2024-05-31] MEDS: CHLORTHALIDONE 25 MG TAB PO ONE (16:20)
[2024-05-31 18:07] VITALS: BP 159/55; TEMP 97.5; O2SAT 96
[2024-05-31] MEDS: SUCRALFATE 1 GM TAB PO SCH (18:25)
[2024-05-31] MEDS: ADVAIR HFA 115/21MCG INHALER INH SCH (19:20)
[2024-05-31 19:50] VITALS: BP 149/55; TEMP 97.3; O2SAT 96
[2024-05-31] MEDS: VALSARTAN 80 MG TAB (DIOVAN) PO SCH (22:28)
[2024-05-31] MEDS: FOLIC ACID 1MG TAB PO SCH (22:29)
[2024-05-31] MEDS: HYDROXYCHLOROQUINE 200 MG TAB PO SCH (22:29)
[2024-05-31] MEDS: **hydrALAZINE** 50 MG TAB PO SCH (22:29)
[2024-06-01 03:50] VITALS: BP 168/62; TEMP 97.3; O2SAT 99
[2024-06-01 05:26] LABS: HEMATOCRIT 27.8 % (36.0-47.0); HEMOGLOBIN 9.4 g/dl (12.0-15.5); MEAN CORPUSCULAR HEMOGLOBIN 31.1 pg (27.0-33.0); MEAN CORPUSCULAR HGB CONC 33.8 g/dl (32.0-36.5); MEAN CORPUSCULAR VOLUME 92.1 fl (80.0-96.0); PLATELET COUNT, AUTOMATED 168 10^3/uL (150-450); RED BLOOD COUNT 3.02 10^6/uL (4.00-5.40); WHITE BLOOD COUNT 6.6 10^3/uL (4.0-10.0)
[2024-06-01 05:53] LABS: CALCIUM LEVEL 10.9 MG/DL (8.3-10.6); GLOMERULAR FILTRATION RATE 57.2 (>39); POTASSIUM SERUM 3.9 MMOL/L (3.5-5.1)
[2024-06-01] MEDS: FLUoxetine 20MG CAP PO SCH (08:34)
[2024-06-01] MEDS: ATORVASTATIN 20 MG TAB PO SCH (08:35)
[2024-06-01] MEDS: PANTOPRAZOLE 40MG TAB (PROTONIX) PO SCH (08:35)
[2024-06-01] MEDS: ASPIRIN 81MG ENTERIC TABLET PO SCH (08:35)
[2024-06-01] MEDS: CLOPIDOGREL 75 MG TAB PO SCH (08:36)
[2024-06-01] MEDS: CHLORTHALIDONE 25 MG TAB PO SCH (08:36)
[2024-06-01] MEDS: SPIRONOLACTONE 50 MG TAB PO SCH (08:36)
[2024-06-01] MEDS: MELOXICAM (MOBIC) 7.5 MG TAB PO SCH (08:37)
[2024-06-01] MEDS: ENOXAPARIN 40MG/0.4ML SYRINGE (J1650 PER 10MG) SC SCH (08:37)
[2024-06-01] MEDS ORDERED: FLUoxetine 20MG CAP PO SCH (09:00)
[2024-06-01 12:00] VITALS: BP 165/67; TEMP 97.3; O2SAT 97
[2024-06-01 12:05] VITALS: BP 182/68
[2024-06-01 12:35] VITALS: BP 158/65
[2024-06-01] MEDS: NEBIVOLOL 5 MG TAB (BYSTOLIC) PO ONE (12:54)
[2024-06-01] MEDS ORDERED: ACETAMINOPHEN 500 MG TAB PO PRN (14:30)
[2024-06-01 20:00] VITALS: BP 161/65; TEMP 97.5; O2SAT 94
[2024-06-02 04:00] VITALS: BP 154/62; TEMP 97.2; O2SAT 95
[2024-06-02] MEDS: **hydrALAZINE HCL** 25 MG TAB PO SCH (15:04)
[2024-06-02 20:21] VITALS: BP 130/55; TEMP 97.3; O2SAT 95
[2024-06-03 06:20] LABS: HEMATOCRIT 28.1 % (36.0-47.0); HEMOGLOBIN 9.2 g/dl (12.0-15.5); MEAN CORPUSCULAR HEMOGLOBIN 30.3 pg (27.0-33.0); MEAN CORPUSCULAR HGB CONC 32.7 g/dl (32.0-36.5); MEAN CORPUSCULAR VOLUME 92.4 fl (80.0-96.0); PLATELET COUNT, AUTOMATED 175 10^3/uL (150-450); RED BLOOD COUNT 3.04 10^6/uL (4.00-5.40); WHITE BLOOD COUNT 8.5 10^3/uL (4.0-10.0)
[2024-06-04 04:00] VITALS: BP 122/62; TEMP 97.5; O2SAT 96
[2024-06-05 04:00] VITALS: BP 149/61; TEMP 98.4; O2SAT 96
[2024-06-05 08:35] VITALS: BP 152/61
== END 2024-06-05 11:35 ==
LOC: M ED 10:12 → EDBD 10:12 → M ED INP 10:13 → M MSPAV 18:08
PROVIDERS: ADMIT Internal Medicine; ATTEND Student in an Organized Health Care Education/Training Program
DX: M24.451 Recurrent dislocation, right hip (principal); T84.020A Dislocation of internal right hip prosthesis, initial encounter; Y79.2 Prosthetic and other implants, materials and accessory orthopedic devices associated with adverse incidents; I16.0 Hypertensive urgency; W18.39XA Other fall on same level, initial encounter; Y92.012 Bathroom of single-family (private) house as the place of occurrence of the external cause; Y93.E8 Activity, other personal hygiene; Y99.8 Other external cause status; I25.10 Atherosclerotic heart disease of native coronary artery without angina pectoris; I10 Essential (primary) hypertension; F39 Unspecified mood [affective] disorder; D86.9 Sarcoidosis, unspecified; M32.9 Systemic lupus erythematosus, unspecified; W19.XXXA Unspecified fall, initial encounter; S00.03XA Contusion of scalp, initial encounter; Y92.231 Patient bathroom in hospital as the place of occurrence of the external cause; Y93.9 Activity, unspecified; Y99.9 Unspecified external cause status; G31.1 Senile degeneration of brain, not elsewhere classified; I67.82 Cerebral ischemia; R45.851 Suicidal ideations; I25.2 Old myocardial infarction; Z95.5 Presence of coronary angioplasty implant and graft; E78.5 Hyperlipidemia, unspecified; Z90.49 Acquired absence of other specified parts of digestive tract; Z96.653 Presence of artificial knee joint, bilateral; Z96.611 Presence of right artificial shoulder joint; Z96.612 Presence of left artificial shoulder joint; Z91.51 Personal history of suicidal behavior; Z88.8 Allergy status to other drugs, medicaments and biological substances; Z79.899 Other long term (current) drug therapy; Z66 Do not resuscitate
CPT/HCPCS: 27265; 36415; 70450; 72125; 73501; 73502; 80048; 80053; 82330; 85027; 87426; 93005; 93041; 94640; 94760; 96372; 97116; 97161; 97165; 97530; 97535; 99152; 99285; G0378; J1650

== ENCOUNTER → 2024-06-06 | Outpatient (REF) ==
[~2024-06-06] MED LIST changes: +ASPI81TA26 PO; +ATOR80TA59 PO; +CHLO125TA PO; +CLOP75TA2 PO; +NEBI10TA2 PO; +SPIR50TA4 PO
[2024-06-06 09:13] LABS: HEMATOCRIT 31.6 % (36.0-47.0); HEMOGLOBIN 10.4 g/dl (12.0-15.5); MEAN CORPUSCULAR HEMOGLOBIN 30.9 pg (27.0-33.0); MEAN CORPUSCULAR HGB CONC 32.9 g/dl (32.0-36.5); MEAN CORPUSCULAR VOLUME 93.8 fl (80.0-96.0); PLATELET COUNT, AUTOMATED 236 10^3/uL (150-450); RED BLOOD COUNT 3.37 10^6/uL (4.00-5.40); WHITE BLOOD COUNT 8.7 10^3/uL (4.0-10.0)
[2024-06-06 09:48] LABS: CALCIUM LEVEL 11.6 MG/DL (8.3-10.6); CREATININE FOR GFR 1.2 MG/DL (0.55-1.30); GLOMERULAR FILTRATION RATE 46.4 (>39); POTASSIUM SERUM 4.1 MMOL/L (3.5-5.1)
== END ==
PROVIDERS: ATTEND Physician Assistant
DX: I10 Essential (primary) hypertension (principal)

== ENCOUNTER → 2024-06-11 | Outpatient (REF) | payer MEDICARE, OTHER ==
[~2024-06-11] MED LIST changes: -ADV250INH INH; +ADVA1AER9 INH
== END ==
LOC: M SOG 08:00 → EDSTATUS 09:05
PROVIDERS: ATTEND Orthopaedic Surgery
DX: Z53.9 Procedure and treatment not carried out, unspecified reason (principal)

== ENCOUNTER → 2024-06-13 | Outpatient (REF) ==
[2024-06-13 09:58] LABS: HEMATOCRIT 26.7 % (36.0-47.0); HEMOGLOBIN 8.9 g/dl (12.0-15.5); MEAN CORPUSCULAR HEMOGLOBIN 31.3 pg (27.0-33.0); MEAN CORPUSCULAR HGB CONC 33.3 g/dl (32.0-36.5); PLATELET COUNT, AUTOMATED 205 10^3/uL (150-450); RED BLOOD COUNT 2.84 10^6/uL (4.00-5.40); WHITE BLOOD COUNT 6.7 10^3/uL (4.0-10.0)
[2024-06-13 10:16] LABS: CALCIUM LEVEL 11.2 MG/DL (8.3-10.6); CREATININE FOR GFR 1.52 MG/DL (0.55-1.30); GLOMERULAR FILTRATION RATE 35.3 (>39); POTASSIUM SERUM 4.3 MMOL/L (3.5-5.1)
== END ==
PROVIDERS: ATTEND Physician Assistant
DX: I10 Essential (primary) hypertension (principal)

== ENCOUNTER 2024-06-18 08:46 | Inpatient (IN) | payer MEDICARE, OTHER ==
[~2024-06-18] VITALS: Ht 165.1 cm; Wt 84.7 kg
[~2024-06-18 08:46] MED LIST changes: -APAP325T4 PO; -BISA10SU4 PR; -CHLO50TA PO; -FLEEENE12 PR; -MILKSUS3 PO; -TREX15TA PO
[2024-06-18] MEDS: ONDANSETRON 4MG 2ML VIAL IV ONE (09:33)
[2024-06-18] MEDS: MORPHINE 2 MG/ML 1ML VIAL IV PRN (09:33)
[2024-06-18] MEDS ORDERED: propofoL 200 MG/20 ML VIAL IV.PROC PRN (12:10)
[2024-06-18] MEDS: NS 1,000 ML IV SCH (12:39)
[2024-06-18] MEDS: NS 500 ML IV ONE (12:44)
[2024-06-18 13:05] LABS: HEMATOCRIT 26.1 % (36.0-47.0); HEMOGLOBIN 8.7 g/dl (12.0-15.5); MEAN CORPUSCULAR HEMOGLOBIN 31.3 pg (27.0-33.0); MEAN CORPUSCULAR HGB CONC 33.3 g/dl (32.0-36.5); MEAN CORPUSCULAR VOLUME 93.9 fl (80.0-96.0); PLATELET COUNT, AUTOMATED 214 10^3/uL (150-450); RED BLOOD COUNT 2.78 10^6/uL (4.00-5.40); WHITE BLOOD COUNT 8.5 10^3/uL (4.0-10.0)
[2024-06-18] MEDS ORDERED: TREX15TA PO (13:20)
[2024-06-18] MEDS ORDERED: CHLO50TA PO (13:20)
[2024-06-18] MEDS ORDERED: APAP325T4 PO (13:22)
[2024-06-18] MEDS ORDERED: MILKSUS3 PO (13:22)
[2024-06-18] MEDS ORDERED: BISA10SU4 PR (13:22)
[2024-06-18] MEDS ORDERED: FLEEENE12 PR (13:22)
[2024-06-18] MEDS ORDERED: HOME MED LIST COMPLETE! XX SCH (13:25)
[2024-06-18 13:31] LABS: ALBUMIN 3.1 G/DL (3.2-5.2); ALKALINE PHOSPHATASE 90 U/L (35-104); ALT/SGPT 24 U/L (7.0-40); AST/SGOT 19 U/L (<34); BILIRUBIN,TOTAL 0.4 MG/DL (0.3-1.2); BLOOD UREA NITROGEN 44 MG/DL (9-23); CALCIUM LEVEL 11.1 MG/DL (8.3-10.6); CARBON DIOXIDE LEVEL 22 MMOL/L (20-31); CHLORIDE LEVEL 107 MMOL/L (98-107); CREATININE FOR GFR 1.24 MG/DL (0.55-1.30); GLOMERULAR FILTRATION RATE 44.7 (>39); GLUCOSE, FASTING 128 MG/DL (74-106); POTASSIUM SERUM 4.6 MMOL/L (3.5-5.1); SODIUM LEVEL 139 MMOL/L (136-145)
[2024-06-18 15:02] LABS: IRON (FE) 50 UG/DL (50-170); PERCENT SATURATION 17.2 % (13.2-45.0); TOTAL IRON BINDING CAPACITY 291 UG/DL (250-425)
[2024-06-18 15:04] LABS: FERRITIN 90.6 NG/ML (7.3-270.7)
[2024-06-18 15:05] LABS: FOLATE > 24.00 NG/ML (>5.4); VITAMIN B12 LEVEL 1238 PG/ML (211-911)
[2024-06-18] MEDS ORDERED: propofoL 200 MG/20 ML VIAL As Ordered ONE (15:59)
[2024-06-18] MEDS ORDERED: LIDOCAINE 2% 100MG/5ML SDV (FOR ANES.) As Ordered ONE (16:00)
[2024-06-18] MEDS ORDERED: MOM 30ML SUSPENSION UDC PO PRN (19:45)
[2024-06-18] MEDS ORDERED: BISACODYL 10MG SUPP PR PRN (19:45)
[2024-06-18 20:10] VITALS: BP 138/46; TEMP 97.9; O2SAT 97
[2024-06-18 21:18] LABS: BASO % 0.2 % (0.0-1.0); EOS % 0.1 % (0.0-3.0); HEMATOCRIT 25.6 % (36.0-47.0); HEMOGLOBIN 8.5 g/dl (12.0-15.5); LYMPH # 0.5 10^3/uL (1.5-5.0); LYMPH % 5.6 % (24.0-44.0); MEAN CORPUSCULAR HEMOGLOBIN 30.9 pg (27.0-33.0); MEAN CORPUSCULAR HGB CONC 33.2 g/dl (32.0-36.5); MEAN CORPUSCULAR VOLUME 93.1 fl (80.0-96.0); MONO # 0.7 10^3/uL (0.0-0.8); MONO % 8.3 % (2.0-8.0); NEUTROPHILS # 7.2 10^3/uL (1.5-8.5); NEUTROPHILS % 85.4 % (36.0-66.0); PLATELET COUNT, AUTOMATED 192 10^3/uL (150-450); RED BLOOD COUNT 2.75 10^6/uL (4.00-5.40); WHITE BLOOD COUNT 8.4 10^3/uL (4.0-10.0)
[2024-06-18] MEDS: FOLIC ACID 1MG TAB PO SCH (21:57)
[2024-06-18] MEDS: **hydrALAZINE** 50 MG TAB PO SCH (21:58)
[2024-06-18] MEDS: SUCRALFATE 1 GM TAB PO SCH (21:58)
[2024-06-18] MEDS: ACETAMINOPHEN 325 MG TAB PO PRN (21:59)
[2024-06-18] MEDS: VALSARTAN 80 MG TAB (DIOVAN) PO SCH (22:00)
[2024-06-18] MEDS: HYDROXYCHLOROQUINE 200 MG TAB PO SCH (22:00)
[2024-06-18] MEDS: MYCOLOG CREAM 15GM (NYSTATIN/TRIAMCINOLONE) TOP SCH (22:00)
[2024-06-19 05:03] VITALS: BP 168/78; TEMP 98.2; O2SAT 95
[2024-06-19 07:14] LABS: HEMATOCRIT 24.5 % (36.0-47.0); HEMOGLOBIN 8.2 g/dl (12.0-15.5); MEAN CORPUSCULAR HEMOGLOBIN 31.3 pg (27.0-33.0); MEAN CORPUSCULAR HGB CONC 33.5 g/dl (32.0-36.5); MEAN CORPUSCULAR VOLUME 93.5 fl (80.0-96.0); PLATELET COUNT, AUTOMATED 186 10^3/uL (150-450); RED BLOOD COUNT 2.62 10^6/uL (4.00-5.40); WHITE BLOOD COUNT 7.2 10^3/uL (4.0-10.0)
[2024-06-19 07:51] LABS: ALBUMIN 2.9 G/DL (3.2-5.2); BILIRUBIN,TOTAL 0.5 MG/DL (0.3-1.2); CALCIUM LEVEL 10.7 MG/DL (8.3-10.6); CREATININE FOR GFR 0.98 MG/DL (0.55-1.30); GLOMERULAR FILTRATION RATE 58.6 (>39); POTASSIUM SERUM 4.2 MMOL/L (3.5-5.1); TOTAL PROTEIN 5.6 G/DL (5.7-8.2)
[2024-06-19 08:51] VITALS: BP 166/70
[2024-06-19] MEDS: CHLORTHALIDONE 25 MG TAB PO SCH (09:00)
[2024-06-19] MEDS: ATORVASTATIN 20 MG TAB PO SCH (09:00)
[2024-06-19] MEDS ORDERED: FLUoxetine 20MG CAP PO SCH (09:00)
[2024-06-19] MEDS: SPIRONOLACTONE 50 MG TAB PO SCH (09:00)
[2024-06-19] MEDS: MELOXICAM (MOBIC) 7.5 MG TAB PO SCH (09:00)
[2024-06-19] MEDS: ENOXAPARIN 40MG/0.4ML SYRINGE (J1650 PER 10MG) SC SCH (09:00)
[2024-06-19] MEDS ORDERED: ASPIRIN 81MG ENTERIC TABLET PO SCH (09:00)
[2024-06-19] MEDS: PANTOPRAZOLE 40MG TAB (PROTONIX) PO SCH (09:00)
[2024-06-19] MEDS ORDERED: CLOPIDOGREL 75 MG TAB PO SCH (09:00)
[2024-06-19] MEDS: FLUoxetine 20MG CAP PO SCH (09:00)
[2024-06-19 12:00] VITALS: BP 167/63; TEMP 97.9; O2SAT 98
[2024-06-19] MEDS: ADVAIR HFA 115/21MCG INHALER INH SCH (19:55)
[2024-06-19 20:11] VITALS: BP 164/59; TEMP 97.7; O2SAT 99
[2024-06-19 22:05] VITALS: BP 164/59
[2024-06-20] MEDS ORDERED: ASPIRIN 81MG ENTERIC TABLET PO SCH (09:00)
[2024-06-20] MEDS ORDERED: CLOPIDOGREL 75 MG TAB PO SCH (09:00)
== END 2024-06-20 00:28 | disposition short-term general hospital (02) | DRG 561 ==
LOC: EDBD 08:46 → M ED 08:46 → M ED INP 08:47 → M MS5PR 20:20 → OBSVTOIN 06-19 14:57
PROVIDERS: ADMIT Student in an Organized Health Care Education/Training Program; ATTEND Internal Medicine
DX: T84.020A Dislocation of internal right hip prosthesis, initial encounter (principal); Y83.1 Surgical operation with implant of artificial internal device as the cause of abnormal reaction of the patient, or of later complication, without mention of misadventure at the time of the procedure; I25.10 Atherosclerotic heart disease of native coronary artery without angina pectoris; I10 Essential (primary) hypertension; F39 Unspecified mood [affective] disorder; L93.0 Discoid lupus erythematosus; I25.2 Old myocardial infarction; T40.2X5A Adverse effect of other opioids, initial encounter; I95.2 Hypotension due to drugs; T42.75XA Adverse effect of unspecified antiepileptic and sedative-hypnotic drugs, initial encounter; E78.5 Hyperlipidemia, unspecified; Z66 Do not resuscitate; Z95.5 Presence of coronary angioplasty implant and graft; Z96.653 Presence of artificial knee joint, bilateral; Z96.611 Presence of right artificial shoulder joint; Z96.612 Presence of left artificial shoulder joint; Z96.641 Presence of right artificial hip joint; Z90.49 Acquired absence of other specified parts of digestive tract; Z79.02 Long term (current) use of antithrombotics/antiplatelets; Z79.1 Long term (current) use of non-steroidal anti-inflammatories (NSAID); Z79.82 Long term (current) use of aspirin; Z79.899 Other long term (current) drug therapy; Z88.8 Allergy status to other drugs, medicaments and biological substances

== ENCOUNTER → 2024-06-18 | Outpatient (REF) ==
[~2024-06-18] MED LIST changes: +APAP325T4 PO; +BISA10SU4 PR; +CHLO50TA PO; +FLEEENE12 PR; +MILKSUS3 PO; +TREX15TA PO
== END ==
PROVIDERS: ATTEND Physician Assistant
DX: D64.9 Anemia, unspecified (principal); Z53.9 Procedure and treatment not carried out, unspecified reason

== ENCOUNTER → 2024-06-20 | Outpatient (REF) ==
[~2024-06-20] MED LIST changes: +APAP325T4 PO; +BISA10SU4 PR; +CHLO50TA PO; +FLEEENE12 PR; +MILKSUS3 PO; +TREX15TA PO
== END ==
PROVIDERS: ATTEND Physician Assistant
DX: I10 Essential (primary) hypertension (principal); Z53.9 Procedure and treatment not carried out, unspecified reason

== ENCOUNTER → 2024-06-20 | Outpatient (REF) | PROVIDERS: ATTEND Physician Assistant | DX: D64.9 Anemia, unspecified (principal); Z53.9 Procedure and treatment not carried out, unspecified reason ==

== ENCOUNTER → 2024-06-25 | Outpatient (CLI) | payer MEDICARE, OTHER | LOC: M SOG 08:00 | PROVIDERS: ATTEND Orthopaedic Surgery | DX: Z96.641 Presence of right artificial hip joint (principal); T84.020D Dislocation of internal right hip prosthesis, subsequent encounter ==

== ENCOUNTER 2024-07-02 11:14 | Observation (INO) | payer MEDICARE, OTHER ==
[2024-07-02] VITALS (8 sets, daily range): BP systolic 133–183; BP diastolic 60–73; TEMP 97.2–98.4; O2SAT 98–100
[~2024-07-02] VITALS: Ht 166.4 cm; Wt 85.8 kg
[~2024-07-02 11:14] MED LIST changes: -ACET-683 PO; -AMOX875T2 PO; -BISA10SU27 PR; -BYST2.5T2 PO; -LOVE1INJ SC; -MM S100C PO; -POTA50TAB PO; -SENN-186 PO; -SPIR-10 PO; -SUCR1TAB56 PO; -VALS1TAB67 PO
[2024-07-02 11:54] LABS: BASO % 0.2 % (0.0-1.0); EOS # 0.1 10^3/uL (0.0-0.5); EOS % 1.1 % (0.0-3.0); LYMPH # 0.4 10^3/uL (1.5-5.0); LYMPH % 3.7 % (24.0-44.0); MEAN CORPUSCULAR HEMOGLOBIN 30.8 pg (27.0-33.0); MEAN CORPUSCULAR HGB CONC 31.9 g/dl (32.0-36.5); MEAN CORPUSCULAR VOLUME 96.4 fl (80.0-96.0); MONO # 0.9 10^3/uL (0.0-0.8); MONO % 9.1 % (2.0-8.0); NEUTROPHILS # 8.7 10^3/uL (1.5-8.5); PLATELET COUNT, AUTOMATED 278 10^3/uL (150-450); RED BLOOD COUNT 1.69 10^6/uL (4.00-5.40); WHITE BLOOD COUNT 10.4 10^3/uL (4.0-10.0)
[2024-07-02 11:59] LABS: HEMATOCRIT 16.3 % (36.0-47.0); HEMOGLOBIN 5.2 g/dl (12.0-15.5)
[2024-07-02] MEDS ORDERED: LOVE1INJ SC (12:05)
[2024-07-02] MEDS ORDERED: MM S100C PO (12:13)
[2024-07-02] MEDS ORDERED: BYST2.5T2 PO (12:16)
[2024-07-02 12:22] LABS: INR 1.08; PARTIAL THROMBOPLASTIN TIME 30.1 SECONDS (24.8-34.2); PROTHROMBIN TIME 14.3 SECONDS (12.5-14.5)
[2024-07-02] MEDS ORDERED: HOME MED LIST COMPLETE! XX SCH (12:25)
[2024-07-02 12:32] LABS: ALBUMIN 2.4 G/DL (3.2-5.2); ALKALINE PHOSPHATASE 72 U/L (35-104); ALT/SGPT < 9 U/L (7.0-40); AST/SGOT 28 U/L (<34); BILIRUBIN,DIRECT 0.2 MG/DL (<0.4); BILIRUBIN,TOTAL 0.5 MG/DL (0.3-1.2); BLOOD UREA NITROGEN 48 MG/DL (9-23); CALCIUM LEVEL 10.3 MG/DL (8.3-10.6); CARBON DIOXIDE LEVEL 24 MMOL/L (20-31); CHLORIDE LEVEL 104 MMOL/L (98-107); CREATININE FOR GFR 1.03 MG/DL (0.55-1.30); GLOMERULAR FILTRATION RATE 55.2 (>39); GLUCOSE, FASTING 130 MG/DL (74-106); POTASSIUM SERUM 4.5 MMOL/L (3.5-5.1); SODIUM LEVEL 136 MMOL/L (136-145); TOTAL PROTEIN 5.3 G/DL (5.7-8.2)
[2024-07-02] MEDS ORDERED: SENN-186 PO (12:55)
[2024-07-02] MEDS ORDERED: SPIR-10 PO (12:56)
[2024-07-02] MEDS ORDERED: VALS1TAB67 PO (12:58)
[2024-07-02] MEDS ORDERED: POTA50TAB PO (13:00)
[2024-07-02] MEDS ORDERED: ACET-683 PO (13:03)
[2024-07-02] MEDS ORDERED: SUCR1TAB56 PO (13:04)
[2024-07-02] MEDS ORDERED: BISA10SU27 PR (13:06)
[2024-07-02] MEDS ORDERED: MAALOX 30 ML SUSP *UDC PO PRN (19:25)
[2024-07-02] MEDS ORDERED: MOM 30ML SUSPENSION UDC PO PRN (19:25)
[2024-07-02] MEDS ORDERED: ACETAMINOPHEN 325 MG TAB PO PRN (19:25)
[2024-07-02] MEDS ORDERED: ACETAMINOPHEN 500 MG TAB PO PRN (19:35)
[2024-07-02] MEDS: HYDROXYCHLOROQUINE 200 MG TAB PO SCH (21:20)
[2024-07-02] MEDS: VALSARTAN 80 MG TAB (DIOVAN) PO SCH (21:20)
[2024-07-02 23:10] LABS: HEMATOCRIT 22.1 % (36.0-47.0); MEAN CORPUSCULAR HEMOGLOBIN 30.2 pg (27.0-33.0); MEAN CORPUSCULAR HGB CONC 33.5 g/dl (32.0-36.5); MEAN CORPUSCULAR VOLUME 90.2 fl (80.0-96.0); PLATELET COUNT, AUTOMATED 209 10^3/uL (150-450); RED BLOOD COUNT 2.45 10^6/uL (4.00-5.40); WHITE BLOOD COUNT 10.3 10^3/uL (4.0-10.0)
[2024-07-02 23:15] LABS: HEMOGLOBIN 7.4 g/dl (12.0-15.5)
[2024-07-03 06:07] LABS: HEMOGLOBIN 8.4 g/dl (12.0-15.5); MEAN CORPUSCULAR HEMOGLOBIN 30.3 pg (27.0-33.0); MEAN CORPUSCULAR HGB CONC 33.6 g/dl (32.0-36.5); MEAN CORPUSCULAR VOLUME 90.3 fl (80.0-96.0); PLATELET COUNT, AUTOMATED 219 10^3/uL (150-450); RED BLOOD COUNT 2.77 10^6/uL (4.00-5.40); WHITE BLOOD COUNT 10.3 10^3/uL (4.0-10.0)
[2024-07-03 06:36] LABS: ALBUMIN 2.5 G/DL (3.2-5.2); ALKALINE PHOSPHATASE 73 U/L (35-104); ALT/SGPT < 9 U/L (7.0-40); AST/SGOT 17 U/L (<34); BILIRUBIN,TOTAL 1.2 MG/DL (0.3-1.2); BLOOD UREA NITROGEN 38 MG/DL (9-23); CALCIUM LEVEL 10.5 MG/DL (8.3-10.6); CARBON DIOXIDE LEVEL 25 MMOL/L (20-31); CHLORIDE LEVEL 105 MMOL/L (98-107); CREATININE FOR GFR 0.85 MG/DL (0.55-1.30); GLOMERULAR FILTRATION RATE > 60.0 (>39); GLUCOSE, FASTING 127 MG/DL (74-106); SODIUM LEVEL 137 MMOL/L (136-145)
[2024-07-03] MEDS ORDERED: FLUoxetine 20MG CAP PO SCH (09:00)
[2024-07-03 09:19] VITALS: BP 193/81
[2024-07-03] MEDS: PANTOPRAZOLE 40MG TAB (PROTONIX) PO SCH (09:19)
[2024-07-03] MEDS: FOLIC ACID 1MG TAB PO SCH (09:19)
[2024-07-03] MEDS: FLUoxetine 20MG CAP PO SCH (09:19)
[2024-07-03] MEDS: SPIRONOLACTONE 25 MG TAB PO SCH (09:19)
[2024-07-03 11:01] VITALS: BP 186/79
[2024-07-03 11:44] VITALS: O2SAT 95
[2024-07-03] MEDS ORDERED: AMOX875T2 PO (13:47)
== END 2024-07-03 11:51 ==
LOC: M ED 11:14 → M ED INP 11:15
PROVIDERS: ADMIT Student in an Organized Health Care Education/Training Program; ATTEND Student in an Organized Health Care Education/Training Program
DX: D62 Acute posthemorrhagic anemia (principal); Z98.890 Other specified postprocedural states; M24.4 Recurrent dislocation of joint; I25.2 Old myocardial infarction; Z95.5 Presence of coronary angioplasty implant and graft; I10 Essential (primary) hypertension; I25.10 Atherosclerotic heart disease of native coronary artery without angina pectoris; M32.9 Systemic lupus erythematosus, unspecified; D86.9 Sarcoidosis, unspecified; E78.5 Hyperlipidemia, unspecified; Z96.641 Presence of right artificial hip joint; Z96.653 Presence of artificial knee joint, bilateral; Z96.611 Presence of right artificial shoulder joint; Z96.612 Presence of left artificial shoulder joint; Z90.49 Acquired absence of other specified parts of digestive tract; M85.80 Other specified disorders of bone density and structure, unspecified site; M19.90 Unspecified osteoarthritis, unspecified site; Z88.8 Allergy status to other drugs, medicaments and biological substances; Z79.899 Other long term (current) drug therapy; Z79.82 Long term (current) use of aspirin; Z79.02 Long term (current) use of antithrombotics/antiplatelets
CPT/HCPCS: 36415; 36430; 72170; 73502; 80048; 80053; 80076; 85025; 85027; 85610; 85730; 86850; 86900; 86901; 86920; 93041; 99285; G0378; P9016

== ENCOUNTER → 2024-07-02 | Outpatient (REF) ==
[~2024-07-02] MED LIST changes: +ACET-683 PO; +AMOX875T2 PO; +BISA10SU27 PR; +BYST2.5T2 PO; +LOVE1INJ SC; +MM S100C PO; +POTA50TAB PO; +SENN-186 PO; +SPIR-10 PO; +SUCR1TAB56 PO; +VALS1TAB67 PO
[2024-07-02 09:37] LABS: MEAN CORPUSCULAR HEMOGLOBIN 31.5 pg (27.0-33.0); MEAN CORPUSCULAR HGB CONC 31.9 g/dl (32.0-36.5); MEAN CORPUSCULAR VOLUME 98.8 fl (80.0-96.0); PLATELET COUNT, AUTOMATED 253 10^3/uL (150-450); RED BLOOD COUNT 1.62 10^6/uL (4.00-5.40); WHITE BLOOD COUNT 9.5 10^3/uL (4.0-10.0)
[2024-07-02 10:00] LABS: HEMOGLOBIN 5.1 g/dl (12.0-15.5)
[2024-07-02 10:10] LABS: CALCIUM LEVEL 10.4 MG/DL (8.3-10.6); CREATININE FOR GFR 1.06 MG/DL (0.55-1.30); GLOMERULAR FILTRATION RATE 53.4 (>39); POTASSIUM SERUM 3.7 MMOL/L (3.5-5.1)
== END ==
PROVIDERS: ATTEND Physician Assistant
DX: D64.9 Anemia, unspecified (principal)

== ENCOUNTER → 2024-07-02 | Outpatient (REF) | PROVIDERS: ATTEND Physician Assistant | DX: D64.9 Anemia, unspecified (principal); Z53.9 Procedure and treatment not carried out, unspecified reason ==

== ENCOUNTER → 2024-07-06 | Outpatient (REF) ==
[~2024-07-06] MED LIST changes: +ACET-683 PO; +AMOX875T2 PO; +BISA10SU27 PR; +BYST2.5T2 PO; +LOVE1INJ SC; +MM S100C PO; +POTA50TAB PO; +SENN-186 PO; +SPIR-10 PO; +SUCR1TAB56 PO; +VALS1TAB67 PO
[2024-07-06 07:21] LABS: HEMOGLOBIN 7.6 g/dl (12.0-15.5); MEAN CORPUSCULAR HEMOGLOBIN 31.4 pg (27.0-33.0); PLATELET COUNT, AUTOMATED 228 10^3/uL (150-450); RED BLOOD COUNT 2.42 10^6/uL (4.00-5.40); WHITE BLOOD COUNT 7.2 10^3/uL (4.0-10.0)
== END ==
PROVIDERS: ATTEND Internal Medicine
DX: D64.9 Anemia, unspecified (principal)

== ENCOUNTER → 2024-07-07 | Outpatient (REF) | PROVIDERS: ATTEND Physician Assistant | DX: D64.9 Anemia, unspecified (principal) ==

== ENCOUNTER → 2024-07-07 | Outpatient (REF) ==
[2024-07-07 15:45] LABS: HEMATOCRIT 24.7 % (36.0-47.0); HEMOGLOBIN 8.2 g/dl (12.0-15.5); MEAN CORPUSCULAR HEMOGLOBIN 31.4 pg (27.0-33.0); MEAN CORPUSCULAR HGB CONC 33.2 g/dl (32.0-36.5); MEAN CORPUSCULAR VOLUME 94.6 fl (80.0-96.0); PLATELET COUNT, AUTOMATED 287 10^3/uL (150-450); RED BLOOD COUNT 2.61 10^6/uL (4.00-5.40); WHITE BLOOD COUNT 10.7 10^3/uL (4.0-10.0)
== END ==
PROVIDERS: ATTEND Physician Assistant
DX: D64.9 Anemia, unspecified (principal)

== ENCOUNTER → 2024-07-09 | Outpatient (CLI) | payer MEDICARE, OTHER ==
[~2024-07-09] MED LIST changes: +diphenhydrAMINE 25MG CAP PO ONE
== END ==
LOC: M INFU 07:52
PROVIDERS: ATTEND Physician Assistant
DX: D64.9 Anemia, unspecified (principal); Z88.1 Allergy status to other antibiotic agents; Z88.8 Allergy status to other drugs, medicaments and biological substances; Z53.9 Procedure and treatment not carried out, unspecified reason

== ENCOUNTER → 2024-07-09 | Outpatient (REF) ==
[~2024-07-09] MED LIST changes: -diphenhydrAMINE 25MG CAP PO ONE
[2024-07-09 10:24] LABS: HEMATOCRIT 26.4 % (36.0-47.0); HEMOGLOBIN 8.4 g/dl (12.0-15.5); MEAN CORPUSCULAR HEMOGLOBIN 30.2 pg (27.0-33.0); MEAN CORPUSCULAR HGB CONC 31.8 g/dl (32.0-36.5); PLATELET COUNT, AUTOMATED 290 10^3/uL (150-450); RED BLOOD COUNT 2.78 10^6/uL (4.00-5.40); WHITE BLOOD COUNT 9.4 10^3/uL (4.0-10.0)
[2024-07-09 10:54] LABS: BLOOD UREA NITROGEN 21 MG/DL (9-23); CALCIUM LEVEL 10.4 MG/DL (8.3-10.6); CARBON DIOXIDE LEVEL 26 MMOL/L (20-31); CHLORIDE LEVEL 101 MMOL/L (98-107); CREATININE FOR GFR 0.75 MG/DL (0.55-1.30); GLOMERULAR FILTRATION RATE > 60.0 (>39); GLUCOSE, FASTING 119 MG/DL (74-106); POTASSIUM SERUM 4.1 MMOL/L (3.5-5.1); SODIUM LEVEL 136 MMOL/L (136-145)
[2024-07-09 13:26] LABS: BASO % 0.3 % (0.0-1.0); EOS % 0.1 % (0.0-3.0); LYMPH # 0.3 10^3/uL (1.5-5.0); LYMPH % 3.2 % (24.0-44.0); MONO # 0.6 10^3/uL (0.0-0.8); MONO % 6.6 % (2.0-8.0); NEUTROPHILS # 8.6 10^3/uL (1.5-8.5); NEUTROPHILS % 89.4 % (36.0-66.0)
[2024-07-09 13:28] LABS: IRON (FE) 49 UG/DL (50-170); PERCENT SATURATION 17.1 % (13.2-45.0); TOTAL IRON BINDING CAPACITY 286 UG/DL (250-425)
[2024-07-09 13:30] LABS: FERRITIN 106.3 NG/ML (7.3-270.7)
[2024-07-09 13:31] LABS: FOLATE > 24.0 NG/ML (>5.4); VITAMIN B12 LEVEL 1028 PG/ML (211-911)
== END ==
PROVIDERS: ATTEND Physician Assistant
DX: D64.9 Anemia, unspecified (principal)

== ENCOUNTER → 2024-07-12 | Outpatient (REF) ==
[2024-07-12 10:34] LABS: HEMATOCRIT 26.1 % (36.0-47.0); HEMOGLOBIN 8.4 g/dl (12.0-15.5); MEAN CORPUSCULAR HEMOGLOBIN 31.1 pg (27.0-33.0); MEAN CORPUSCULAR HGB CONC 32.2 g/dl (32.0-36.5); MEAN CORPUSCULAR VOLUME 96.7 fl (80.0-96.0); PLATELET COUNT, AUTOMATED 265 10^3/uL (150-450)
== END ==
PROVIDERS: ATTEND Physician Assistant
DX: D64.9 Anemia, unspecified (principal)

== ENCOUNTER → 2024-07-16 | Outpatient (REF) ==
[2024-07-16 11:14] LABS: HEMATOCRIT 30.4 % (36.0-47.0); HEMOGLOBIN 9.7 g/dl (12.0-15.5); MEAN CORPUSCULAR HEMOGLOBIN 31.6 pg (27.0-33.0); MEAN CORPUSCULAR HGB CONC 31.9 g/dl (32.0-36.5); PLATELET COUNT, AUTOMATED 312 10^3/uL (150-450); RED BLOOD COUNT 3.07 10^6/uL (4.00-5.40); WHITE BLOOD COUNT 6.6 10^3/uL (4.0-10.0)
[2024-07-16 11:32] LABS: BLOOD UREA NITROGEN 16 MG/DL (9-23); CALCIUM LEVEL 10.6 MG/DL (8.3-10.6); CARBON DIOXIDE LEVEL 27 MMOL/L (20-31); CHLORIDE LEVEL 100 MMOL/L (98-107); CREATININE FOR GFR 0.67 MG/DL (0.55-1.30); GLOMERULAR FILTRATION RATE > 60.0 (>39); GLUCOSE, FASTING 136 MG/DL (74-106); POTASSIUM SERUM 3.9 MMOL/L (3.5-5.1); SODIUM LEVEL 137 MMOL/L (136-145)
== END ==
PROVIDERS: ATTEND Physician Assistant
DX: D64.9 Anemia, unspecified (principal)

== ENCOUNTER → 2024-07-18 | Outpatient (REF) ==
[2024-07-18 10:34] LABS: HEMATOCRIT 29.8 % (36.0-47.0); HEMOGLOBIN 9.7 g/dl (12.0-15.5); MEAN CORPUSCULAR HEMOGLOBIN 31.8 pg (27.0-33.0); MEAN CORPUSCULAR HGB CONC 32.6 g/dl (32.0-36.5); MEAN CORPUSCULAR VOLUME 97.7 fl (80.0-96.0); PLATELET COUNT, AUTOMATED 293 10^3/uL (150-450); RED BLOOD COUNT 3.05 10^6/uL (4.00-5.40); WHITE BLOOD COUNT 8.1 10^3/uL (4.0-10.0)
[2024-07-18 11:03] LABS: BLOOD UREA NITROGEN 16 MG/DL (9-23); CALCIUM LEVEL 10.7 MG/DL (8.3-10.6); CARBON DIOXIDE LEVEL 24 MMOL/L (20-31); CHLORIDE LEVEL 104 MMOL/L (98-107); CREATININE FOR GFR 0.73 MG/DL (0.55-1.30); GLOMERULAR FILTRATION RATE > 60.0 (>39); GLUCOSE, FASTING 143 MG/DL (74-106); POTASSIUM SERUM 4.2 MMOL/L (3.5-5.1); SODIUM LEVEL 137 MMOL/L (136-145)
== END ==
PROVIDERS: ATTEND Physician Assistant
DX: D64.9 Anemia, unspecified (principal)

== ENCOUNTER → 2024-07-23 | Outpatient (REF) ==
[2024-07-23 10:58] LABS: HEMATOCRIT 33.5 % (36.0-47.0); MEAN CORPUSCULAR HEMOGLOBIN 31.8 pg (27.0-33.0); MEAN CORPUSCULAR HGB CONC 32.8 g/dl (32.0-36.5); MEAN CORPUSCULAR VOLUME 96.8 fl (80.0-96.0); PLATELET COUNT, AUTOMATED 294 10^3/uL (150-450); RED BLOOD COUNT 3.46 10^6/uL (4.00-5.40); WHITE BLOOD COUNT 9.4 10^3/uL (4.0-10.0)
[2024-07-23 11:08] LABS: BLOOD UREA NITROGEN 17 MG/DL (9-23); CALCIUM LEVEL 10.4 MG/DL (8.3-10.6); CARBON DIOXIDE LEVEL 25 MMOL/L (20-31); CHLORIDE LEVEL 102 MMOL/L (98-107); CREATININE FOR GFR 0.82 MG/DL (0.55-1.30); GLOMERULAR FILTRATION RATE > 60.0 (>39); GLUCOSE, FASTING 136 MG/DL (74-106); SODIUM LEVEL 137 MMOL/L (136-145)
== END ==
PROVIDERS: ATTEND Physician Assistant
DX: D64.9 Anemia, unspecified (principal)

== ENCOUNTER → 2024-07-25 | Outpatient (REF) ==
[2024-07-25 13:37] LABS: HEMOGLOBIN 10.3 g/dl (12.0-15.5); MEAN CORPUSCULAR HGB CONC 32.2 g/dl (32.0-36.5); MEAN CORPUSCULAR VOLUME 99.4 fl (80.0-96.0); PLATELET COUNT, AUTOMATED 245 10^3/uL (150-450); RED BLOOD COUNT 3.22 10^6/uL (4.00-5.40); WHITE BLOOD COUNT 9.2 10^3/uL (4.0-10.0)
[2024-07-25 13:58] LABS: BLOOD UREA NITROGEN 28 MG/DL (9-23); CALCIUM LEVEL 10.4 MG/DL (8.3-10.6); CARBON DIOXIDE LEVEL 24 MMOL/L (20-31); CHLORIDE LEVEL 103 MMOL/L (98-107); CREATININE FOR GFR 0.83 MG/DL (0.55-1.30); GLOMERULAR FILTRATION RATE > 60.0 (>39); GLUCOSE, FASTING 100 MG/DL (74-106); POTASSIUM SERUM 4.2 MMOL/L (3.5-5.1); SODIUM LEVEL 139 MMOL/L (136-145)
== END ==
PROVIDERS: ATTEND Physician Assistant
DX: D64.9 Anemia, unspecified (principal)

== ENCOUNTER → 2024-07-30 | Outpatient (REF) ==
[2024-07-30 12:05] LABS: HEMATOCRIT 30.7 % (36.0-47.0); HEMOGLOBIN 9.8 g/dl (12.0-15.5); MEAN CORPUSCULAR HGB CONC 31.9 g/dl (32.0-36.5); MEAN CORPUSCULAR VOLUME 97.2 fl (80.0-96.0); PLATELET COUNT, AUTOMATED 201 10^3/uL (150-450); RED BLOOD COUNT 3.16 10^6/uL (4.00-5.40); WHITE BLOOD COUNT 8.6 10^3/uL (4.0-10.0)
[2024-07-30 12:28] LABS: BLOOD UREA NITROGEN 20 MG/DL (9-23); CALCIUM LEVEL 10.2 MG/DL (8.3-10.6); CARBON DIOXIDE LEVEL 24 MMOL/L (20-31); CHLORIDE LEVEL 103 MMOL/L (98-107); CREATININE FOR GFR 0.79 MG/DL (0.55-1.30); GLOMERULAR FILTRATION RATE > 60.0 (>39); GLUCOSE, FASTING 141 MG/DL (74-106); SODIUM LEVEL 137 MMOL/L (136-145)
== END ==
PROVIDERS: ATTEND Physician Assistant
DX: D64.9 Anemia, unspecified (principal)

== ENCOUNTER → 2024-07-30 | Outpatient (REF) | PROVIDERS: ATTEND Physician Assistant | DX: D64.9 Anemia, unspecified (principal); Z53.9 Procedure and treatment not carried out, unspecified reason ==

== ENCOUNTER → 2024-07-30 | Outpatient (REF) | PROVIDERS: ATTEND Physician Assistant | DX: D64.9 Anemia, unspecified (principal); Z53.9 Procedure and treatment not carried out, unspecified reason ==

== ENCOUNTER → 2024-08-06 | Outpatient (REF) ==
[2024-08-06 10:50] LABS: HEMOGLOBIN 10.7 g/dl (12.0-15.5); MEAN CORPUSCULAR HGB CONC 32.4 g/dl (32.0-36.5); MEAN CORPUSCULAR VOLUME 98.8 fl (80.0-96.0); PLATELET COUNT, AUTOMATED 235 10^3/uL (150-450); RED BLOOD COUNT 3.34 10^6/uL (4.00-5.40); WHITE BLOOD COUNT 8.5 10^3/uL (4.0-10.0)
[2024-08-06 11:23] LABS: BLOOD UREA NITROGEN 20 MG/DL (9-23); CALCIUM LEVEL 10.1 MG/DL (8.3-10.6); CARBON DIOXIDE LEVEL 25 MMOL/L (20-31); CHLORIDE LEVEL 100 MMOL/L (98-107); CREATININE FOR GFR 0.69 MG/DL (0.55-1.30); GLOMERULAR FILTRATION RATE > 60.0 (>39); GLUCOSE, FASTING 171 MG/DL (74-106); SODIUM LEVEL 138 MMOL/L (136-145)
== END ==
PROVIDERS: ATTEND Physician Assistant
DX: D64.9 Anemia, unspecified (principal)

== ENCOUNTER → 2024-08-09 | Outpatient (REF) | PROVIDERS: ATTEND Physician Assistant | DX: D64.9 Anemia, unspecified (principal) ==

== ENCOUNTER → 2024-08-13 | Outpatient (REF) | PROVIDERS: ATTEND Physician Assistant | DX: D64.9 Anemia, unspecified (principal) ==

== ENCOUNTER → 2024-08-20 | Outpatient (CLI) | payer MEDICARE | LOC: M SOG 07:55 | PROVIDERS: ATTEND Orthopaedic Surgery | DX: T84.020D Dislocation of internal right hip prosthesis, subsequent encounter (principal); Z96.641 Presence of right artificial hip joint ==

== ENCOUNTER → 2024-08-27 | Outpatient (REF) ==
[2024-08-27 10:10] LABS: BLOOD UREA NITROGEN 21 MG/DL (9-23); CALCIUM LEVEL 10.5 MG/DL (8.3-10.6); CARBON DIOXIDE LEVEL 21 MMOL/L (20-31); CHLORIDE LEVEL 103 MMOL/L (98-107); CREATININE FOR GFR 0.65 MG/DL (0.55-1.30); GLOMERULAR FILTRATION RATE > 60.0 (>39); GLUCOSE, FASTING 112 MG/DL (74-106); POTASSIUM SERUM 4.3 MMOL/L (3.5-5.1); SODIUM LEVEL 138 MMOL/L (136-145)
== END ==
PROVIDERS: ATTEND Physician Assistant
DX: D64.9 Anemia, unspecified (principal)

== ENCOUNTER → 2024-08-29 | Outpatient (REF) | payer MEDICARE ==
[2024-08-29 09:30] LABS: HEMATOCRIT 31.8 % (36.0-47.0); HEMOGLOBIN 10.5 g/dl (12.0-15.5); MEAN CORPUSCULAR HEMOGLOBIN 31.8 pg (27.0-33.0); MEAN CORPUSCULAR VOLUME 96.4 fl (80.0-96.0); PLATELET COUNT, AUTOMATED 241 10^3/uL (150-450); WHITE BLOOD COUNT 9.2 10^3/uL (4.0-10.0)
== END ==
PROVIDERS: ATTEND Physician Assistant
DX: D64.9 Anemia, unspecified (principal)

== ENCOUNTER → 2024-09-24 | Outpatient (REF) | payer MEDICARE ==
[2024-09-24 09:02] LABS: HEMATOCRIT 29.7 % (36.0-47.0); HEMOGLOBIN 9.9 g/dl (12.0-15.5); MEAN CORPUSCULAR HEMOGLOBIN 32.1 pg (27.0-33.0); MEAN CORPUSCULAR HGB CONC 33.3 g/dl (32.0-36.5); MEAN CORPUSCULAR VOLUME 96.4 fl (80.0-96.0); PLATELET COUNT, AUTOMATED 224 10^3/uL (150-450); RED BLOOD COUNT 3.08 10^6/uL (4.00-5.40); WHITE BLOOD COUNT 7.9 10^3/uL (4.0-10.0)
[2024-09-24 09:23] LABS: BLOOD UREA NITROGEN 21 MG/DL (9-23); CALCIUM LEVEL 10.3 MG/DL (8.3-10.6); CARBON DIOXIDE LEVEL 25 MMOL/L (20-31); CHLORIDE LEVEL 101 MMOL/L (98-107); CREATININE FOR GFR 0.71 MG/DL (0.55-1.30); GLOMERULAR FILTRATION RATE > 60.0 (>39); GLUCOSE, FASTING 131 MG/DL (74-106); SODIUM LEVEL 138 MMOL/L (136-145)
== END ==
PROVIDERS: ATTEND Internal Medicine
DX: D64.9 Anemia, unspecified (principal)

== ENCOUNTER → 2024-10-18 | Outpatient (REF) | payer MEDICARE, OTHER ==
[2024-10-18 18:59] LABS: BASO % 0.3 % (0.0-1.0); EOS # 0.1 10^3/uL (0.0-0.5); EOS % 0.7 % (0.0-3.0); HEMATOCRIT 32.7 % (36.0-47.0); HEMOGLOBIN 10.5 g/dl (12.0-15.5); LYMPH # 0.4 10^3/uL (1.5-5.0); LYMPH % 3.9 % (24.0-44.0); MEAN CORPUSCULAR HGB CONC 32.1 g/dl (32.0-36.5); MEAN CORPUSCULAR VOLUME 99.7 fl (80.0-96.0); NEUTROPHILS # 8.5 10^3/uL (1.5-8.5); NEUTROPHILS % 84.6 % (36.0-66.0); PLATELET COUNT, AUTOMATED 288 10^3/uL (150-450); RED BLOOD COUNT 3.28 10^6/uL (4.00-5.40); WHITE BLOOD COUNT 10.1 10^3/uL (4.0-10.0)
[2024-10-18 19:08] LABS: CALCIUM LEVEL 10.7 MG/DL (8.3-10.6); CREATININE FOR GFR 0.88 MG/DL (0.55-1.30); GLOMERULAR FILTRATION RATE 67.2 (>39); POTASSIUM SERUM 4.8 MMOL/L (3.5-5.1)
== END ==
PROVIDERS: ATTEND Physician Assistant
DX: R10.9 Unspecified abdominal pain (principal)

== ENCOUNTER → 2024-10-19 | Outpatient (REF) | PROVIDERS: ATTEND Physician Assistant | DX: R10.9 Unspecified abdominal pain (principal) ==

== ENCOUNTER → 2024-10-22 | Outpatient (REF) ==
[2024-10-22 08:51] LABS: HEMATOCRIT 32.5 % (36.0-47.0); HEMOGLOBIN 10.6 g/dl (12.0-15.5); MEAN CORPUSCULAR HEMOGLOBIN 31.5 pg (27.0-33.0); MEAN CORPUSCULAR HGB CONC 32.6 g/dl (32.0-36.5); MEAN CORPUSCULAR VOLUME 96.4 fl (80.0-96.0); PLATELET COUNT, AUTOMATED 246 10^3/uL (150-450); RED BLOOD COUNT 3.37 10^6/uL (4.00-5.40); WHITE BLOOD COUNT 8.3 10^3/uL (4.0-10.0)
[2024-10-22 09:24] LABS: CALCIUM LEVEL 10.7 MG/DL (8.3-10.6); CREATININE FOR GFR 0.75 MG/DL (0.55-1.30); GLOMERULAR FILTRATION RATE 81.4 (>39); POTASSIUM SERUM 4.3 MMOL/L (3.5-5.1)
== END ==
PROVIDERS: ATTEND Physician Assistant
DX: R10.9 Unspecified abdominal pain (principal)

== ENCOUNTER → 2024-10-29 | Outpatient (REF) | payer MEDICARE ==
[2024-10-29 11:17] LABS: HEMATOCRIT 30.7 % (36.0-47.0); HEMOGLOBIN 9.9 g/dl (12.0-15.5); MEAN CORPUSCULAR HEMOGLOBIN 31.7 pg (27.0-33.0); MEAN CORPUSCULAR HGB CONC 32.2 g/dl (32.0-36.5); MEAN CORPUSCULAR VOLUME 98.4 fl (80.0-96.0); PLATELET COUNT, AUTOMATED 255 10^3/uL (150-450); RED BLOOD COUNT 3.12 10^6/uL (4.00-5.40); WHITE BLOOD COUNT 10.1 10^3/uL (4.0-10.0)
[2024-10-29 11:51] LABS: CALCIUM LEVEL 11.1 MG/DL (8.3-10.6); CREATININE FOR GFR 0.83 MG/DL (0.55-1.30); GLOMERULAR FILTRATION RATE 72.1 (>39); POTASSIUM SERUM 4.3 MMOL/L (3.5-5.1)
== END ==
PROVIDERS: ATTEND Internal Medicine
DX: D64.9 Anemia, unspecified (principal)

== ENCOUNTER → 2024-11-05 | Outpatient (REF) | payer MEDICARE | PROVIDERS: ATTEND Internal Medicine | DX: D64.9 Anemia, unspecified (principal); Z53.8 Procedure and treatment not carried out for other reasons ==

== ENCOUNTER → 2024-11-05 | Outpatient (REF) | payer MEDICARE, OTHER | PROVIDERS: ATTEND Physician Assistant | DX: D64.9 Anemia, unspecified (principal); Z53.9 Procedure and treatment not carried out, unspecified reason ==

== ENCOUNTER → 2024-11-19 | Outpatient (REF) | payer MEDICARE | LOC: M LAB REF 17:41 | PROVIDERS: ATTEND Family Medicine | DX: E83.52 Hypercalcemia (principal) ==

== ENCOUNTER 2024-12-10 17:32 | Inpatient (IN) | payer MEDICARE ==
[~2024-12-10] VITALS: Ht 167.6 cm; Wt 77.2 kg
[2024-12-10] MEDS ORDERED: ASPI81CH33 PO (18:02)
[2024-12-10 18:49] LABS: KETONE, URINE AUTO RFX NEGATIVE (NEGATIVE); RBC, URINE AUTO RFX 24 /HPF (0-3); SQUAM EPITHELIAL CELL UR AURFX 0 /HPF (0-6)
[2024-12-10 18:50] LABS: LEUKOCYTE ESTERASE UR AUTO RFX 3+ (NEGATIVE); NITRITE, URINE AUTO RFX POSITIVE (NEGATIVE); WBC, URINE AUTO RFX TNTC /HPF (0-3)
[2024-12-10 19:01] LABS: BASO # 0.0 10^3/uL (0.0-0.2); BASO % 0.6 % (0.0-1.0); EOS # 0.1 10^3/uL (0.0-0.5); EOS % 2.1 % (0.0-3.0); LYMPH # 0.7 10^3/uL (1.5-5.0); LYMPH % 10.2 % (24.0-44.0); MONO # 0.8 10^3/uL (0.0-0.8); MONO % 11.2 % (2.0-8.0); NEUTROPHILS # 5.0 10^3/uL (1.5-8.5); NEUTROPHILS % 75.5 % (36.0-66.0); PLATELET COUNT, AUTOMATED 216 10^3/uL (150-450)
[2024-12-10 19:11] LABS: ALT/SGPT 22.0 U/L (7.0-40); AST/SGOT 31.0 U/L (<34); CALCIUM LEVEL 10.1 MG/DL (8.3-10.6); CARBON DIOXIDE LEVEL 27.0 MMOL/L (20-31); CHLORIDE LEVEL 100.0 MMOL/L (98-107); CREATININE FOR GFR 0.78 MG/DL (0.55-1.30); GLOMERULAR FILTRATION RATE 77.7 (>39); POTASSIUM SERUM 4.5 MMOL/L (3.5-5.1); SODIUM LEVEL 135.0 MMOL/L (136-145)
[2024-12-10 19:59] LABS: VALPROIC ACID (DEPAKOTE) 14.2 UG/ML (50.0-100.0)
[2024-12-10] MEDS: cefTRIAXone SOD 2 GM in DEXTROSE 5% (D5W) ADV/MINI-BAG 50 ML IV ONE (21:04)
[2024-12-10] MEDS: NS 500 ML IV ONE (21:04)
[2024-12-10] MEDS ORDERED: AMLO1TAB24 PO (21:56)
[2024-12-10] MEDS ORDERED: DIVA1TAB48 PO (21:58)
[2024-12-10] MEDS ORDERED: POLY17PO18 PO (21:58)
[2024-12-10] MEDS ORDERED: FERR32TA PO (21:58)
[2024-12-10] MEDS ORDERED: MED REC COMMENT (22:01)
[2024-12-10] MEDS ORDERED: HOME MED LIST COMPLETE! XX SCH (22:25)
[2024-12-11] VITALS (8 sets, daily range): BP systolic 143–227; BP diastolic 75–95; TEMP 97.8–99.5; O2SAT 96–99
[2024-12-11] MEDS: NS (Normal Saline) 0.9% 1,000 ML IV ONE (01:17)
[2024-12-11] MEDS ORDERED: PILL CUTTER 1 EACH XX PRN (01:20)
[2024-12-11] MEDS: NS (Normal Saline) 0.9% 1,000 ML IV SCH (01:21)
[2024-12-11] MEDS: hydrALAZINE 20 MG/ML 1 ML VIAL IV STA (01:44)
[2024-12-11 07:51] LABS: BASO # 0.0 10^3/uL (0.0-0.2); BASO % 0.2 % (0.0-1.0); EOS # 0.1 10^3/uL (0.0-0.5); EOS % 1.2 % (0.0-3.0); LYMPH # 0.5 10^3/uL (1.5-5.0); LYMPH % 6.7 % (24.0-44.0); MONO # 1.0 10^3/uL (0.0-0.8); MONO % 11.9 % (2.0-8.0); NEUTROPHILS # 6.5 10^3/uL (1.5-8.5); NEUTROPHILS % 79.6 % (36.0-66.0); PLATELET COUNT, AUTOMATED 187 10^3/uL (150-450)
[2024-12-11 08:32] LABS: ALT/SGPT 26.0 U/L (7.0-40); AST/SGOT 27.0 U/L (<34); CALCIUM LEVEL 10.1 MG/DL (8.3-10.6); CARBON DIOXIDE LEVEL 23.0 MMOL/L (20-31); CHLORIDE LEVEL 104.0 MMOL/L (98-107); CREATININE FOR GFR 0.69 MG/DL (0.55-1.30); GLOMERULAR FILTRATION RATE 88.8 (>39); MAGNESIUM LEVEL 1.0 MG/DL (1.8-2.4); POTASSIUM SERUM 3.8 MMOL/L (3.5-5.1); SODIUM LEVEL 139.0 MMOL/L (136-145)
[2024-12-11] MEDS: HEPARIN SOD 5000 UNITS/ML 1 ML VIAL/SYRINGE SC SCH (08:41)
[2024-12-11] MEDS: CLOPIDOGREL 75 MG TAB PO SCH (08:41)
[2024-12-11] MEDS: PANTOPRAZOLE 40MG VIAL IV SCH (08:41)
[2024-12-11] MEDS: DOCUSATE SODIUM 100 MG CAPSULE PO SCH (08:42)
[2024-12-11] MEDS: ASPIRIN 81 MG CHEWABLE TABLET PO SCH (08:42)
[2024-12-11] MEDS: SPIRONOLACTONE 25 MG TAB PO SCH (08:44)
[2024-12-11] MEDS: amLODIPine 5 MG TAB PO SCH (08:44)
[2024-12-11] MEDS: FLUoxetine 20 MG CAP PO SCH ×2 (08:45)
[2024-12-11] MEDS: DIVALPROEX 125 MG TAB PO SCH (10:24)
[2024-12-11] MEDS: NEBIVOLOL 5 MG TAB PO SCH (10:25)
[2024-12-11] MEDS: HYDROXYCHLOROQUINE 200 MG TAB PO SCH (10:28)
[2024-12-11] MEDS ORDERED: hydrALAZINE 20 MG/ML 1 ML VIAL IV PRN (12:10)
[2024-12-11] MEDS: MAG SULF 1GM/100ML (MAG RUN) 1 GM in IV 1 EA IV SCH (12:25)
[2024-12-11] MEDS: **hydrALAZINE** 10 MG TAB PO ONE (13:27)
[2024-12-11] MEDS: ERYTHROMYCIN OPHTH OINT OU SCH (21:00)
[2024-12-11] MEDS: cefTRIAXone SOD 1 GM in DEXTROSE 5% (D5W) ADV/MINI-BAG 50 ML IV SCH (21:14)
[2024-12-11] MEDS: ATORVASTATIN 20 MG TAB PO SCH (21:14)
[2024-12-11] MEDS: RAMELTEON 8 MG TAB PO PRN (21:14)
[2024-12-11] MEDS: VALSARTAN 80MG TAB PO SCH (21:14)
[2024-12-11] MEDS: **hydrALAZINE** 10 MG TAB PO SCH (21:15)
[2024-12-12] VITALS (10 sets, daily range): BP systolic 143–210; BP diastolic 61–114; TEMP 97.2–98.6; O2SAT 92–97
[2024-12-12] MEDS: amLODIPine 5 MG TAB PO ONE (01:39)
[2024-12-12 06:56] LABS: CALCIUM LEVEL 9.9 MG/DL (8.3-10.6); CARBON DIOXIDE LEVEL 23.0 MMOL/L (20-31); CHLORIDE LEVEL 103.0 MMOL/L (98-107); CREATININE FOR GFR 0.74 MG/DL (0.55-1.30); GLOMERULAR FILTRATION RATE 82.8 (>39); MAGNESIUM LEVEL 1.7 MG/DL (1.8-2.4); POTASSIUM SERUM 4.1 MMOL/L (3.5-5.1); SODIUM LEVEL 136.0 MMOL/L (136-145)
[2024-12-12 06:57] LABS: BASO # 0.0 10^3/uL (0.0-0.2); BASO % 0.5 % (0.0-1.0); EOS # 0.2 10^3/uL (0.0-0.5); EOS % 2.4 % (0.0-3.0); LYMPH # 0.5 10^3/uL (1.5-5.0); LYMPH % 7.7 % (24.0-44.0); MONO # 0.8 10^3/uL (0.0-0.8); MONO % 13.5 % (2.0-8.0); NEUTROPHILS # 4.7 10^3/uL (1.5-8.5); NEUTROPHILS % 75.4 % (36.0-66.0); PLATELET COUNT, AUTOMATED 172 10^3/uL (150-450)
[2024-12-12] MEDS: **hydrALAZINE** 50 MG TAB PO SCH (08:04)
[2024-12-12] MEDS: amLODIPine 10 MG TAB PO SCH (08:06)
[2024-12-12] MEDS: MAG SULF 1GM/100ML (MAG RUN) 1 GM in IV 1 EA IV SCH (08:09)
[2024-12-12] MEDS: FLUoxetine 20 MG CAP PO SCH (08:27)
[2024-12-12] MEDS: OLANZapine INTRAMUSCULAR 10MG VIAL IM PRN (09:55)
[2024-12-12] MEDS: hydrALAZINE 20 MG/ML 1 ML VIAL IV PRN (10:02)
[2024-12-12] MEDS: cloNIDine HCL 0.1 MG/24 HR PATCH TOP SCH (12:36)
[2024-12-13] VITALS (24 sets, daily range): BP systolic 136–208; BP diastolic 67–104; TEMP 97–98; O2SAT 92–97
[2024-12-13 06:10] LABS: BASO # 0.0 10^3/uL (0.0-0.2); BASO % 0.3 % (0.0-1.0); EOS # 0.1 10^3/uL (0.0-0.5); EOS % 1.6 % (0.0-3.0); LYMPH # 0.5 10^3/uL (1.5-5.0); LYMPH % 5.1 % (24.0-44.0); MONO # 1.1 10^3/uL (0.0-0.8); MONO % 12.6 % (2.0-8.0); NEUTROPHILS # 7.0 10^3/uL (1.5-8.5); NEUTROPHILS % 79.8 % (36.0-66.0); PLATELET COUNT, AUTOMATED 188 10^3/uL (150-450)
[2024-12-13 06:38] LABS: CALCIUM LEVEL 10.0 MG/DL (8.3-10.6); CARBON DIOXIDE LEVEL 24.0 MMOL/L (20-31); CHLORIDE LEVEL 104.0 MMOL/L (98-107); CREATININE FOR GFR 0.73 MG/DL (0.55-1.30); GLOMERULAR FILTRATION RATE 84.1 (>39); MAGNESIUM LEVEL 1.7 MG/DL (1.8-2.4); POTASSIUM SERUM 3.7 MMOL/L (3.5-5.1); SODIUM LEVEL 138.0 MMOL/L (136-145)
[2024-12-13] MEDS: MAG SULF 1GM/100ML (MAG RUN) 1 GM in IV 1 EA IV ONE (09:40)
[2024-12-14] VITALS (27 sets, daily range): BP systolic 123–194; BP diastolic 62–88; TEMP 97.1–98.6; O2SAT 93–100
[2024-12-14 06:51] LABS: CALCIUM LEVEL 10.8 MG/DL (8.3-10.6); CARBON DIOXIDE LEVEL 24.0 MMOL/L (20-31); CHLORIDE LEVEL 103.0 MMOL/L (98-107); CREATININE FOR GFR 0.98 MG/DL (0.55-1.30); GLOMERULAR FILTRATION RATE 59.1 (>39); MAGNESIUM LEVEL 2.0 MG/DL (1.8-2.4); POTASSIUM SERUM 4.5 MMOL/L (3.5-5.1); SODIUM LEVEL 139.0 MMOL/L (136-145)
[2024-12-14] MEDS: BISACODYL 10 MG SUPP PR PRN (10:38)
[2024-12-14] MEDS: MIRALAX *UNIT DOSE* 17 GM PACKET PO PRN (10:43)
[2024-12-15] VITALS (10 sets, daily range): BP systolic 154–210; BP diastolic 64–108; TEMP 97.4–98.2; O2SAT 95–97
[2024-12-15 08:31] LABS: CALCIUM LEVEL 10.8 MG/DL (8.3-10.6); CARBON DIOXIDE LEVEL 26.0 MMOL/L (20-31); CHLORIDE LEVEL 99.0 MMOL/L (98-107); CREATININE FOR GFR 1.1 MG/DL (0.55-1.30); GLOMERULAR FILTRATION RATE 51.4 (>39); MAGNESIUM LEVEL 1.8 MG/DL (1.8-2.4); POTASSIUM SERUM 3.3 MMOL/L (3.5-5.1); SODIUM LEVEL 135.0 MMOL/L (136-145)
[2024-12-15] MEDS: DIVALPROEX SPRINKLE 125 MG CAP PO SCH (08:45)
[2024-12-15] MEDS: **hydrALAZINE HCL** 25 MG TAB PO SCH (16:10)
[2024-12-16 04:34] VITALS: BP 180/74; TEMP 97; O2SAT 96
[2024-12-16 08:11] VITALS: BP 137/64; TEMP 97.5; O2SAT 95
[2024-12-16 08:34] LABS: CALCIUM LEVEL 10.2 MG/DL (8.3-10.6); CARBON DIOXIDE LEVEL 24.0 MMOL/L (20-31); CHLORIDE LEVEL 104.0 MMOL/L (98-107); CREATININE FOR GFR 1.07 MG/DL (0.55-1.30); GLOMERULAR FILTRATION RATE 53.2 (>39); MAGNESIUM LEVEL 1.8 MG/DL (1.8-2.4); POTASSIUM SERUM 3.7 MMOL/L (3.5-5.1); SODIUM LEVEL 138.0 MMOL/L (136-145)
[2024-12-16 12:01] VITALS: BP 112/68; TEMP 97.4; O2SAT 98
[2024-12-16 16:00] VITALS: BP 143/68
[2024-12-16 19:33] VITALS: BP 155/73; TEMP 97.1; O2SAT 97
[2024-12-17 06:51] LABS: CALCIUM LEVEL 10.7 MG/DL (8.3-10.6); CARBON DIOXIDE LEVEL 26.0 MMOL/L (20-31); CHLORIDE LEVEL 100.0 MMOL/L (98-107); CREATININE FOR GFR 0.93 MG/DL (0.55-1.30); GLOMERULAR FILTRATION RATE 62.9 (>39); MAGNESIUM LEVEL 1.6 MG/DL (1.8-2.4); POTASSIUM SERUM 3.9 MMOL/L (3.5-5.1); SODIUM LEVEL 134.0 MMOL/L (136-145)
[2024-12-17 08:18] VITALS: BP 163/70; TEMP 98; O2SAT 98
[2024-12-17] MEDS: MAG SULF 1GM/100ML (MAG RUN) 1 GM in IV 1 EA IV SCH (09:31)
[2024-12-17] MEDS: PANTOPRAZOLE 40MG TAB PO SCH (09:33)
[2024-12-17 19:06] VITALS: BP 154/76; TEMP 97.4; O2SAT 96
[2024-12-18 07:35] VITALS: BP 146/72; TEMP 98.4; O2SAT 96
[2024-12-18 15:12] VITALS: BP 148/64; TEMP 97.7; O2SAT 96
[2024-12-19 03:43] VITALS: BP 112/58; TEMP 97.7; O2SAT 95
[2024-12-19] MEDS ORDERED: cloNIDine HCL 0.3 MG/24 HR PATCH TOP SCH (09:00)
[2024-12-19] MEDS: cloNIDine HCL 0.1 MG/24 HR PATCH TOP SCH (09:00)
[2024-12-19] MEDS ORDERED: NITROGLYCERIN 2% OINT 1 GM *U/D* PKT TOP ONE (10:00)
[2024-12-19 11:01] VITALS: BP 150/50
[2024-12-19 15:07] VITALS: BP 138/58
[2024-12-19] MEDS ORDERED: ACETAMINOPHEN 325 MG TAB PO PRN (21:10)
[2024-12-19] MEDS: BACLOFEN 10 MG TAB PO ONE (21:37)
[2024-12-20 06:00] VITALS: BP 190/60; TEMP 97.7; O2SAT 97
[2024-12-20] MEDS: **hydrALAZINE** 50 MG TAB PO ONE (10:34)
[2024-12-20 12:00] VITALS: BP 148/56; TEMP 97.7; O2SAT 97
[2024-12-20 21:00] VITALS: BP 148/92; TEMP 98.6
[2024-12-21 05:37] VITALS: BP 132/64; TEMP 98.1; O2SAT 95
[2024-12-21 17:50] VITALS: BP 160/70; TEMP 97.9; O2SAT 96
[2024-12-22 03:44] VITALS: BP 130/60; TEMP 97.3; O2SAT 97
[2024-12-23 04:11] VITALS: BP 166/69; TEMP 97.9; O2SAT 97
[2024-12-24 20:05] VITALS: BP 158/54
[2024-12-25 03:53] VITALS: BP 156/82; TEMP 97.9; O2SAT 98
[2024-12-26 03:05] VITALS: BP 156/66; TEMP 97.9; O2SAT 97
[2024-12-27 05:52] VITALS: BP 128/58; TEMP 97.3; O2SAT 97
[2024-12-28 03:46] VITALS: BP 120/50; TEMP 97.7; O2SAT 99
[2024-12-29 04:00] VITALS: BP 110/59; TEMP 98.8; O2SAT 98
[2024-12-29 09:17] VITALS: BP 135/60
[2024-12-30 22:00] VITALS: BP 142/88; TEMP 98.2; O2SAT 98
[2024-12-31 04:16] VITALS: BP 128/64; TEMP 98.4; O2SAT 96
[2024-12-31] MEDS ORDERED: GLUCAGON INJ 1 MG VIAL SC PRN (11:40)
[2024-12-31] MEDS ORDERED: DEXTROSE 50% 50 ML SYRINGE IV PRN (11:40)
[2024-12-31] MEDS ORDERED: GLUCOSE 4 GM CHEW PO PRN (11:40)
[2024-12-31] MEDS: INSULIN LISPRO (NovoLOG) PER UNIT SC SCH ×2 (12:42→21:00)
[2025-01-01 03:12] VITALS: TEMP 97.9; O2SAT 99
[2025-01-01 05:56] VITALS: BP 173/65
[2025-01-01 06:15] VITALS: BP 152/64
[2025-01-01] MEDS ORDERED: NITROGLYCERIN 2% OINT 1 GM *U/D* PKT TOP ONE (14:00)
[2025-01-01 15:15] VITALS: BP 146/64
[2025-01-02 05:44] VITALS: BP 124/52; TEMP 97.5; O2SAT 96
[2025-01-03 03:49] VITALS: BP 138/52; TEMP 97.8; O2SAT 95
[2025-01-03] MEDS: RAMELTEON 8 MG TAB PO PRN (20:50)
[2025-01-03 21:00] VITALS: BP 162/72; TEMP 97.8; O2SAT 95
[2025-01-04 04:00] VITALS: BP 146/58; TEMP 97.5; O2SAT 100
[2025-01-04 20:55] VITALS: BP 155/55; TEMP 98.6; O2SAT 97
[2025-01-05 03:31] VITALS: BP 146/62; TEMP 98.2; O2SAT 100
[2025-01-05 08:24] VITALS: BP 165/62; TEMP 98; O2SAT 100
[2025-01-05 20:10] VITALS: BP 140/55; TEMP 98.1; O2SAT 97
[2025-01-06 05:10] VITALS: BP 153/62; TEMP 97.5; O2SAT 97
[2025-01-07 06:30] VITALS: BP 139/65; TEMP 97.5; O2SAT 98
[2025-01-08 04:06] VITALS: BP 148/58; TEMP 97.5; TEMP 97.7; O2SAT 98
[2025-01-09 03:51] VITALS: BP 146/58; TEMP 97.5; O2SAT 99
[2025-01-09 11:35] VITALS: BP 152/58
[2025-01-10 04:59] VITALS: BP 124/52; TEMP 97.7; O2SAT 98
[2025-01-11 05:13] VITALS: BP 160/76; TEMP 97.5; O2SAT 97
[2025-01-12 06:08] VITALS: BP 142/64; TEMP 97.7; O2SAT 99
[2025-01-13 04:43] VITALS: BP 132/72; TEMP 97.7; O2SAT 98
[2025-01-13 14:54] VITALS: BP 154/78
[2025-01-14 06:13] VITALS: BP 180/72; TEMP 97.7; O2SAT 99
[2025-01-15 05:53] VITALS: BP 180/74; TEMP 97.5; O2SAT 100
[2025-01-15 09:27] VITALS: BP 142/70
[2025-01-16 03:59] VITALS: BP 138/68; TEMP 97.5; O2SAT 98
[2025-01-16 15:32] VITALS: BP 140/60
[2025-01-16] MEDS ORDERED: CLON0.1D3 TOP (17:17)
[2025-01-16] MEDS ORDERED: AMLO1TAB25 PO (17:17)
[2025-01-16] MEDS ORDERED: HYDR25TA87 PO (17:17)
[2025-01-16 18:43] LABS: ESTIMATED AVERAGE GLUCOSE 128.0 MG/DL (60-110)
[2025-01-17 04:11] VITALS: BP 142/72; TEMP 97.7; O2SAT 99
[2025-01-17 08:50] VITALS: BP 142/72
== END 2025-01-17 12:45 | disposition home or self-care (01) | DRG 690 ==
LOC: M ED 17:32 → M ED INP 17:33 → M MS4PR 12-11 11:04 → OBSVTOIN 12-12 09:00 → M PCU 12-12 15:51 → M MSPAV 12-18 15:12
PROVIDERS: ADMIT Student in an Organized Health Care Education/Training Program; ATTEND Internal Medicine
DX: N39.0 Urinary tract infection, site not specified (principal); F03.911 Unspecified dementia, unspecified severity, with agitation; F05 Delirium due to known physiological condition; G40.909 Epilepsy, unspecified, not intractable, without status epilepticus; I16.0 Hypertensive urgency; M06.9 Rheumatoid arthritis, unspecified; M32.9 Systemic lupus erythematosus, unspecified; I10 Essential (primary) hypertension; E11.9 Type 2 diabetes mellitus without complications; E78.5 Hyperlipidemia, unspecified; I25.10 Atherosclerotic heart disease of native coronary artery without angina pectoris; D86.9 Sarcoidosis, unspecified; Z95.5 Presence of coronary angioplasty implant and graft; B96.20 Unspecified Escherichia coli [E. coli] as the cause of diseases classified elsewhere; R32 Unspecified urinary incontinence; F32.A Depression, unspecified; G47.00 Insomnia, unspecified; Z96.653 Presence of artificial knee joint, bilateral; Z96.641 Presence of right artificial hip joint; Z96.611 Presence of right artificial shoulder joint; Z96.612 Presence of left artificial shoulder joint; Z79.899 Other long term (current) drug therapy; Z79.82 Long term (current) use of aspirin; Z88.8 Allergy status to other drugs, medicaments and biological substances; Z66 Do not resuscitate

== ENCOUNTER 2025-01-31 17:34 | Inpatient (IN) | payer MEDICARE ==
[~2025-01-31] VITALS: Ht 167.6 cm; Wt 76.0 kg
[~2025-01-31 17:34] MED LIST changes: +AMLO1TAB24 PO; +ASPI81CH33 PO; +CLON0.1D3 TOP; +DIVA1TAB48 PO; +FERR32TA PO; +HYDR25TA87 PO; +MED REC COMMENT; +POLY17PO18 PO
[2025-01-31 18:20] LABS: BASO # 0.0 10^3/uL (0.0-0.2); BASO % 0.2 % (0.0-1.0); EOS # 0.0 10^3/uL (0.0-0.5); EOS % 0.0 % (0.0-3.0); LYMPH # 0.6 10^3/uL (1.5-5.0); LYMPH % 5.8 % (24.0-44.0); MONO # 0.9 10^3/uL (0.0-0.8); MONO % 8.6 % (2.0-8.0); NEUTROPHILS # 8.7 10^3/uL (1.5-8.5); NEUTROPHILS % 84.8 % (36.0-66.0); PLATELET COUNT, AUTOMATED 315 10^3/uL (150-450)
[2025-01-31] MEDS ORDERED: GABA-1171 PO (18:34)
[2025-01-31] MEDS ORDERED: HYDR25TA88 PO (18:34)
[2025-01-31] MEDS ORDERED: OXYC1TAB23 PO (18:34)
[2025-01-31] MEDS ORDERED: CLON0.1D3 TOP (18:34)
[2025-01-31] MEDS ORDERED: HOME MED LIST COMPLETE! XX SCH (18:35)
[2025-01-31 18:44] LABS: ALT/SGPT 27.0 U/L (7.0-40); AST/SGOT 42.0 U/L (<34); CALCIUM LEVEL 10.2 MG/DL (8.3-10.6); CARBON DIOXIDE LEVEL 25.0 MMOL/L (20-31); CHLORIDE LEVEL 101.0 MMOL/L (98-107); CREATININE FOR GFR 0.85 MG/DL (0.55-1.30); GLOMERULAR FILTRATION RATE 70.1 (>39); POTASSIUM SERUM 3.9 MMOL/L (3.5-5.1); SODIUM LEVEL 138.0 MMOL/L (136-145)
[2025-01-31 18:48] LABS: THYROXINE (T4) 6.4 UG/DL (4.5-10.9)
[2025-01-31] MEDS ORDERED: SUCRALFATE 1 GM TAB PO SCH (21:00)
[2025-01-31] MEDS: HYDROXYCHLOROQUINE 200 MG TAB PO SCH (21:00)
[2025-01-31] MEDS: ACETAMINOPHEN 500 MG TAB PO SCH (21:00)
[2025-01-31] MEDS ORDERED: MIRALAX *UNIT DOSE* 17 GM PACKET PO PRN (21:30)
[2025-01-31] MEDS ORDERED: BISACODYL 10 MG SUPP PR PRN (21:30)
[2025-01-31] MEDS: LIDOCAINE 2% 5 ML JELLY UROJET TOP ONE (23:05)
[2025-01-31 23:50] VITALS: BP 185/81; TEMP 96.6
[2025-02-01] VITALS (9 sets, daily range): BP systolic 136–196; BP diastolic 60–84; TEMP 96.3–98; O2SAT 97–99
[2025-02-01] MEDS: ATORVASTATIN 20 MG TAB PO SCH (02:03)
[2025-02-01] MEDS: DOCUSATE SODIUM 100 MG CAPSULE PO SCH (02:04)
[2025-02-01] MEDS: VALSARTAN 80MG TAB PO SCH (02:04)
[2025-02-01] MEDS: cefTRIAXone SOD 1 GM in DEXTROSE 5% (D5W) ADV/MINI-BAG 50 ML IV SCH (02:04)
[2025-02-01] MEDS: RAMELTEON 8 MG TAB PO PRN (02:04)
[2025-02-01] MEDS: **hydrALAZINE HCL** 25 MG TAB PO SCH (02:05)
[2025-02-01] MEDS: GABAPENTIN 100 MG CAP PO SCH (02:05)
[2025-02-01 02:42] LABS: APPEARANCE, URINE HAZY (CLEAR); BACTERIA, URINE AUTO 3+ (NEGATIVE); BILIRUBIN, URINE AUTO NEGATIVE (NEGATIVE); BLOOD, URINE BLOOD 1+ (NEGATIVE); GLUCOSE, URINE (UA) AUTO NEGATIVE (NEGATIVE); KETONE, URINE AUTO NEGATIVE (NEGATIVE); LEUKOCYTE ESTERASE, URINE AUTO 3+ (NEGATIVE); NITRITE, URINE AUTO POSITIVE (NEGATIVE); PROTEIN, URINE AUTO 1+ mg/dL (NEGATIVE); RBC, URINE AUTO 16 /HPF (0-3); SPECIFIC GRAVITY URINE AUTO 1.015 (1.002-1.035); SQUAMOUS EPITHELIAL CELL UR AU 1 /HPF (0-6); UROBILINOGEN, URINE AUTO 0.2 mg/dL (0.0-2.0); WBC, URINE AUTO 83 /HPF (0-3)
[2025-02-01 05:30] LABS: PLATELET COUNT, AUTOMATED 255 10^3/uL (150-450)
[2025-02-01 05:54] LABS: CALCIUM LEVEL 10.0 MG/DL (8.3-10.6); CARBON DIOXIDE LEVEL 27 MMOL/L (20-31); CHLORIDE LEVEL 101 MMOL/L (98-107); CREATININE FOR GFR 0.64 MG/DL (0.55-1.30); GLOMERULAR FILTRATION RATE > 90.0 (>39); POTASSIUM SERUM 3.3 MMOL/L (3.5-5.1); SODIUM LEVEL 139 MMOL/L (136-145)
[2025-02-01] MEDS ORDERED: FLUoxetine 20 MG CAP PO SCH (09:00)
[2025-02-01] MEDS ORDERED: cefTRIAXone SOD 1 GM in DEXTROSE 5% (D5W) ADV/MINI-BAG 50 ML IV SCH (09:00)
[2025-02-01] MEDS: SPIRONOLACTONE 25 MG TAB PO SCH (09:25)
[2025-02-01] MEDS: FOLIC ACID 1 MG TAB PO SCH (09:25)
[2025-02-01] MEDS: CLOPIDOGREL 75 MG TAB PO SCH (09:27)
[2025-02-01] MEDS: FERROUS GLUCONATE 324 MG TAB PO SCH (09:27)
[2025-02-01] MEDS: amLODIPine 10 MG TAB PO SCH (09:27)
[2025-02-01] MEDS: FLUoxetine 20 MG CAP PO SCH (09:27)
[2025-02-01] MEDS: ASPIRIN 81 MG CHEWABLE TABLET PO SCH (09:28)
[2025-02-01] MEDS: PANTOPRAZOLE 40MG TAB PO SCH (09:28)
[2025-02-01] MEDS: DIVALPROEX 125 MG TAB PO SCH (09:28)
[2025-02-01] MEDS: PERCOCET 5MG/325MG TAB PO PRN (16:51)
[2025-02-01] MEDS: HEPARIN SOD 5000 UNITS/ML 1 ML VIAL/SYRINGE SQ SCH (20:01)
[2025-02-02 03:00] VITALS: BP 164/78; TEMP 97.5; O2SAT 98
[2025-02-02 04:48] LABS: PLATELET COUNT, AUTOMATED 257 10^3/uL (150-450)
[2025-02-02 05:11] LABS: CALCIUM LEVEL 9.5 MG/DL (8.3-10.6); CARBON DIOXIDE LEVEL 29 MMOL/L (20-31); CHLORIDE LEVEL 101 MMOL/L (98-107); CREATININE FOR GFR 0.62 MG/DL (0.55-1.30); GLOMERULAR FILTRATION RATE > 90.0 (>39); POTASSIUM SERUM 2.9 MMOL/L (3.5-5.1); SODIUM LEVEL 140 MMOL/L (136-145)
[2025-02-02] MEDS: KCL 10MEQ/100ML SWI (KRUN) 10 MEQ in IV 1 EA IV SCH (05:38)
[2025-02-02 05:46] LABS: MAGNESIUM LEVEL 1.0 MG/DL (1.8-2.4)
[2025-02-02 07:32] VITALS: TEMP 96.7; O2SAT 100
[2025-02-02] MEDS: POTASSIUM CHLORIDE 10% LIQ 20MEQ/15ML UDC PO SCH (10:00)
[2025-02-02] MEDS: MAG SULF 1GM/100ML (MAG RUN) 1 GM in IV 1 EA IV SCH (10:02)
[2025-02-02 10:51] LABS: CALCIUM LEVEL 9.6 MG/DL (8.3-10.6); CARBON DIOXIDE LEVEL 28 MMOL/L (20-31); CHLORIDE LEVEL 101 MMOL/L (98-107); CREATININE FOR GFR 0.56 MG/DL (0.55-1.30); GLOMERULAR FILTRATION RATE > 90.0 (>39); POTASSIUM SERUM 3.2 MMOL/L (3.5-5.1); SODIUM LEVEL 140 MMOL/L (136-145)
[2025-02-02 11:54] VITALS: BP 156/58; TEMP 97.4; O2SAT 98
[2025-02-02] MEDS: NITROFURANTOIN 100 MG CAP PO SCH (13:09)
[2025-02-02 16:00] VITALS: BP 158/62; TEMP 97.3; O2SAT 97
[2025-02-02 16:50] VITALS: BP 152/54; TEMP 97; O2SAT 96
[2025-02-02 17:29] LABS: CALCIUM LEVEL 9.8 MG/DL (8.3-10.6); CARBON DIOXIDE LEVEL 27 MMOL/L (20-31); CHLORIDE LEVEL 102 MMOL/L (98-107); CREATININE FOR GFR 0.58 MG/DL (0.55-1.30); GLOMERULAR FILTRATION RATE > 90.0 (>39); POTASSIUM SERUM 3.8 MMOL/L (3.5-5.1); SODIUM LEVEL 141 MMOL/L (136-145)
[2025-02-02 20:16] VITALS: BP 164/62; TEMP 98.1; O2SAT 95
[2025-02-02 22:32] LABS: CALCIUM LEVEL 9.4 MG/DL (8.3-10.6); CARBON DIOXIDE LEVEL 27 MMOL/L (20-31); CHLORIDE LEVEL 102 MMOL/L (98-107); CREATININE FOR GFR 0.60 MG/DL (0.55-1.30); GLOMERULAR FILTRATION RATE > 90.0 (>39); POTASSIUM SERUM 3.8 MMOL/L (3.5-5.1); SODIUM LEVEL 139 MMOL/L (136-145)
[2025-02-03] VITALS (7 sets, daily range): BP systolic 140–164; BP diastolic 52–74; TEMP 97.7–97.9; O2SAT 96–99
[2025-02-03 06:40] LABS: PLATELET COUNT, AUTOMATED 236 10^3/uL (150-450)
[2025-02-03 07:06] LABS: CALCIUM LEVEL 9.7 MG/DL (8.3-10.6); CARBON DIOXIDE LEVEL 26 MMOL/L (20-31); CHLORIDE LEVEL 103 MMOL/L (98-107); CREATININE FOR GFR 0.63 MG/DL (0.55-1.30); GLOMERULAR FILTRATION RATE > 90.0 (>39); MAGNESIUM LEVEL 1.4 MG/DL (1.8-2.4); POTASSIUM SERUM 4.3 MMOL/L (3.5-5.1); SODIUM LEVEL 140 MMOL/L (136-145)
[2025-02-04] VITALS (8 sets, daily range): BP systolic 148–175; BP diastolic 65–78; TEMP 97.3–97.9; O2SAT 96–98
[2025-02-04 07:05] LABS: PLATELET COUNT, AUTOMATED 251 10^3/uL (150-450)
[2025-02-04 07:40] LABS: CALCIUM LEVEL 10.0 MG/DL (8.3-10.6); CARBON DIOXIDE LEVEL 26.0 MMOL/L (20-31); CHLORIDE LEVEL 101.0 MMOL/L (98-107); CREATININE FOR GFR 0.73 MG/DL (0.55-1.30); GLOMERULAR FILTRATION RATE 84.1 (>39); MAGNESIUM LEVEL 1.3 MG/DL (1.8-2.4); POTASSIUM SERUM 5.4 MMOL/L (3.5-5.1); SODIUM LEVEL 135.0 MMOL/L (136-145)
[2025-02-04] MEDS: MAGNESIUM OXIDE 400 MG TAB PO SCH (08:37)
[2025-02-04] MEDS: MAG SULF 1GM/100ML (MAG RUN) 1 GM in IV 1 EA IV ONE (09:08)
[2025-02-04] MEDS ORDERED: MACR100C43 PO (11:00)
[2025-02-04] MEDS ORDERED: RAME8TAB2 PO (11:00)
[2025-02-04] MEDS ORDERED: MAGN400T33 PO (11:08)
[2025-02-06] MEDS ORDERED: cloNIDine HCL 0.1 MG/24 HR PATCH TOP SCH (09:00)
[2025-02-06] MEDS ORDERED: METHOTREXATE 2.5 MG TAB PO SCH (09:00)
== END 2025-02-04 19:47 | disposition home or self-care (01) | DRG 812 ==
LOC: M ED 17:34 → EDBD 17:34 → M ED INP 17:35 → M PCU 02-01 03:48 → OBSVTOIN 02-02 10:44 → M MSPAV 02-02 16:49
PROVIDERS: ADMIT Student in an Organized Health Care Education/Training Program; ATTEND Family Medicine
PROC: 30233N1 Transfusion of Nonautologous Red Blood Cells into Peripheral Vein, Percutaneous Approach (ICD-10-PCS; principal; 2025-01-31)
DX: D64.9 Anemia, unspecified (principal); Z66 Do not resuscitate; I25.10 Atherosclerotic heart disease of native coronary artery without angina pectoris; I10 Essential (primary) hypertension; M32.9 Systemic lupus erythematosus, unspecified; E11.9 Type 2 diabetes mellitus without complications; F03.90 Unspecified dementia, unspecified severity, without behavioral disturbance, psychotic disturbance, mood disturbance, and anxiety; D86.9 Sarcoidosis, unspecified; E83.42 Hypomagnesemia; F32.A Depression, unspecified; Z96.653 Presence of artificial knee joint, bilateral; Z96.611 Presence of right artificial shoulder joint; Z96.612 Presence of left artificial shoulder joint; Z96.641 Presence of right artificial hip joint; M06.9 Rheumatoid arthritis, unspecified; G89.29 Other chronic pain; K21.9 Gastro-esophageal reflux disease without esophagitis; K59.00 Constipation, unspecified; Z79.82 Long term (current) use of aspirin; Z79.899 Other long term (current) drug therapy; Z90.49 Acquired absence of other specified parts of digestive tract; Z88.8 Allergy status to other drugs, medicaments and biological substances; Z95.5 Presence of coronary angioplasty implant and graft

== ENCOUNTER 2025-02-18 11:22 | Observation (INO) | payer MEDICARE ==
[~2025-02-18] VITALS: Ht 152.4 cm; Wt 70.2 kg
[~2025-02-18 11:22] MED LIST changes: +GABA-1171 PO; +HYDR25TA88 PO; +MACR100C43 PO; +MAGN400T33 PO; +OXYC1TAB23 PO; +RAME8TAB2 PO
[2025-02-18] MEDS: NS 500 ML IV ONE ×2 (11:58→15:52)
[2025-02-18 12:08] LABS: BASO # 0.0 10^3/uL (0.0-0.2); BASO % 0.2 % (0.0-1.0); EOS # 0.0 10^3/uL (0.0-0.5); EOS % 0.1 % (0.0-3.0); LYMPH # 0.2 10^3/uL (1.5-5.0); LYMPH % 1.9 % (24.0-44.0); MONO # 0.7 10^3/uL (0.0-0.8); MONO % 5.7 % (2.0-8.0); NEUTROPHILS # 11.8 10^3/uL (1.5-8.5); NEUTROPHILS % 91.6 % (36.0-66.0); PLATELET COUNT, AUTOMATED 271 10^3/uL (150-450)
[2025-02-18 12:31] LABS: ALT/SGPT 49.0 U/L (7.0-40); AST/SGOT 36.0 U/L (<34); CALCIUM LEVEL 10.6 MG/DL (8.3-10.6); CARBON DIOXIDE LEVEL 28.0 MMOL/L (20-31); CHLORIDE LEVEL 100.0 MMOL/L (98-107); CREATININE FOR GFR 1.05 MG/DL (0.55-1.30); GLOMERULAR FILTRATION RATE 54.4 (>39); POTASSIUM SERUM 4.8 MMOL/L (3.5-5.1); SODIUM LEVEL 137.0 MMOL/L (136-145)
[2025-02-18 15:31] LABS: KETONE, URINE AUTO RFX NEGATIVE (NEGATIVE); LEUKOCYTE ESTERASE UR AUTO RFX NEGATIVE (NEGATIVE); MUCUS, URINE RFX SMALL (NEGATIVE); NITRITE, URINE AUTO RFX NEGATIVE (NEGATIVE); RBC, URINE AUTO RFX 1 /HPF (0-3); SQUAM EPITHELIAL CELL UR AURFX 0 /HPF (0-6); WBC, URINE AUTO RFX 2 /HPF (0-3)
[2025-02-18] MEDS: ACETAMINOPHEN *IV* 1,000 MG in IV 1 EA IV ONE (15:53)
[2025-02-18] MEDS ORDERED: ISOVUE-370 76% 100 ML VIAL As Ordered ONE (15:53)
[2025-02-18] MEDS ORDERED: FLEET ENEMA PR PRN (18:30)
[2025-02-18] MEDS: BISACODYL 10 MG SUPP PR ONE (19:17)
[2025-02-18] MEDS: FLEET ENEMA PR ONE (19:17)
[2025-02-18] MEDS: CEFEPIME HCL 2 GM in DEXTROSE 5% (D5W) ADV/MINI-BAG 50 ML IV ONE (19:17)
[2025-02-18] MEDS ORDERED: HOME MED LIST COMPLETE! XX SCH (19:30)
[2025-02-18] MEDS: DOXYCYCLINE HYCLATE 100 MG in DEXTROSE 5% (D5W) MINI-BAG PLU 100 ML IV ONE (20:02)
[2025-02-18] MEDS: INSULIN LISPRO (NovoLOG) PER UNIT SC SCH (21:00)
[2025-02-18] MEDS: VALSARTAN 80MG TAB PO SCH (21:00)
[2025-02-18] MEDS ORDERED: MIRALAX *UNIT DOSE* 17 GM PACKET PO PRN (21:25)
[2025-02-18] MEDS ORDERED: ACETAMINOPHEN 500 MG TAB PO PRN (21:35)
[2025-02-18] MEDS ORDERED: BISACODYL 10 MG SUPP PR PRN (21:35)
[2025-02-18] MEDS ORDERED: DEXTROSE 50% 50 ML SYRINGE IV PRN (21:45)
[2025-02-18] MEDS ORDERED: GLUCAGON INJ 1 MG VIAL SC PRN (21:45)
[2025-02-18] MEDS ORDERED: GLUCOSE 4 GM CHEW PO PRN (21:45)
[2025-02-18] MEDS: RAMELTEON 8 MG TAB PO PRN (23:15)
[2025-02-18] MEDS: **hydrALAZINE HCL** 25 MG TAB PO SCH (23:16)
[2025-02-18] MEDS: HYDROXYCHLOROQUINE 200 MG TAB PO SCH (23:16)
[2025-02-18] MEDS: GABAPENTIN 100 MG CAP PO SCH (23:16)
[2025-02-18] MEDS: SUCRALFATE 1 GM TAB PO SCH (23:16)
[2025-02-18] MEDS: ATORVASTATIN 20 MG TAB PO SCH (23:16)
[2025-02-18] MEDS: LR 1,000 ML IV SCH (23:36)
[2025-02-19] MEDS: PIPERACILLIN/TAZOBACTAM SOD 4.5 GM in DEXTROSE 5% (D5W) ADV/MINI-BAG 50 ML IV SCH (01:43)
[2025-02-19] MEDS ORDERED: cloNIDine HCL 0.1 MG/24 HR PATCH TOP SCH ×2 (06:00→06:54)
[2025-02-19 07:10] LABS: PLATELET COUNT, AUTOMATED 221 10^3/uL (150-450)
[2025-02-19] MEDS: INSULIN LISPRO (NovoLOG) PER UNIT SC SCH (07:30)
[2025-02-19 07:33] LABS: ALT/SGPT 37.0 U/L (7.0-40); AST/SGOT 32.0 U/L (<34); CALCIUM LEVEL 10.5 MG/DL (8.3-10.6); CARBON DIOXIDE LEVEL 28.0 MMOL/L (20-31); CHLORIDE LEVEL 99.0 MMOL/L (98-107); CREATININE FOR GFR 0.76 MG/DL (0.55-1.30); GLOMERULAR FILTRATION RATE 80.2 (>39); POTASSIUM SERUM 4.2 MMOL/L (3.5-5.1); SODIUM LEVEL 136.0 MMOL/L (136-145)
[2025-02-19] MEDS: FLUoxetine 20 MG CAP PO SCH (08:20)
[2025-02-19] MEDS: FOLIC ACID 1 MG TAB PO SCH (08:20)
[2025-02-19] MEDS: PANTOPRAZOLE 40MG TAB PO SCH (08:20)
[2025-02-19] MEDS: ASPIRIN 81 MG CHEWABLE TABLET PO SCH (08:20)
[2025-02-19] MEDS: CLOPIDOGREL 75 MG TAB PO SCH (08:21)
[2025-02-19] MEDS: amLODIPine 10 MG TAB PO SCH (08:21)
[2025-02-19] MEDS: **hydrALAZINE HCL** 25 MG TAB PO SCH (08:21)
[2025-02-19] MEDS: HEPARIN SOD 5000 UNITS/ML 1 ML VIAL/SYRINGE SC SCH (08:43)
[2025-02-19] MEDS: cloNIDine HCL 0.1 MG/24 HR PATCH TOP SCH (08:44)
[2025-02-19] MEDS ORDERED: SENNA 8.6 MG TAB PO SCH (09:00)
[2025-02-19] MEDS: FERROUS GLUCONATE 324 MG TAB PO SCH (09:00)
[2025-02-19] MEDS ORDERED: amLODIPine 10 MG TAB PO SCH (09:00)
[2025-02-19] MEDS ORDERED: SPIRONOLACTONE 25 MG TAB PO SCH (09:00)
[2025-02-19] MEDS ORDERED: FERROUS GLUCONATE 324 MG TAB PO SCH (09:00)
[2025-02-19] MEDS: SENNOSIDES/DOCUSATE SODIUM 8.6 MG/50MG TAB PO SCH (09:21)
[2025-02-19] MEDS: DIVALPROEX 125 MG TAB PO SCH (09:21)
[2025-02-19] MEDS: BISACODYL 10 MG SUPP PR SCH (09:21)
[2025-02-19] MEDS: MIRALAX *UNIT DOSE* 17 GM PACKET PO SCH (09:21)
[2025-02-19 16:00] VITALS: BP 182/78; TEMP 97.6; O2SAT 98
[2025-02-19 19:55] VITALS: BP 159/69; TEMP 98.2; O2SAT 98
[2025-02-20 05:55] VITALS: BP 185/85; TEMP 97.6; O2SAT 98
[2025-02-20 07:15] LABS: PLATELET COUNT, AUTOMATED 180 10^3/uL (150-450)
[2025-02-20 07:38] LABS: ALT/SGPT 29.0 U/L (7.0-40); AST/SGOT 26.0 U/L (<34); CALCIUM LEVEL 10.5 MG/DL (8.3-10.6); CARBON DIOXIDE LEVEL 27.0 MMOL/L (20-31); CHLORIDE LEVEL 101.0 MMOL/L (98-107); CREATININE FOR GFR 0.86 MG/DL (0.55-1.30); GLOMERULAR FILTRATION RATE 69.1 (>39); POTASSIUM SERUM 3.8 MMOL/L (3.5-5.1); SODIUM LEVEL 138.0 MMOL/L (136-145)
[2025-02-20] MEDS ORDERED: cloNIDine HCL 0.1 MG/24 HR PATCH TOP SCH (08:00)
[2025-02-20] MEDS ORDERED: VALSARTAN 80MG TAB PO SCH (09:00)
[2025-02-20] MEDS: VALSARTAN 80MG TAB PO SCH (10:47)
[2025-02-20 14:00] VITALS: BP 136/61; TEMP 98.6; O2SAT 97
[2025-02-20 20:26] VITALS: BP 135/57; TEMP 98.3; O2SAT 96
[2025-02-21 05:47] VITALS: BP 105/56; TEMP 98.4; O2SAT 96
[2025-02-21 07:14] LABS: PLATELET COUNT, AUTOMATED 195 10^3/uL (150-450)
[2025-02-21 07:43] LABS: ALT/SGPT 24.0 U/L (7.0-40); AST/SGOT 16.0 U/L (<34); CALCIUM LEVEL 10.3 MG/DL (8.3-10.6); CARBON DIOXIDE LEVEL 26.0 MMOL/L (20-31); CHLORIDE LEVEL 102.0 MMOL/L (98-107); CREATININE FOR GFR 0.92 MG/DL (0.55-1.30); GLOMERULAR FILTRATION RATE 63.7 (>39); POTASSIUM SERUM 3.9 MMOL/L (3.5-5.1); SODIUM LEVEL 136.0 MMOL/L (136-145)
[2025-02-21 08:53] VITALS: BP 160/63
[2025-02-21] MEDS ORDERED: SENN8.6T58 PO (13:41)
[2025-02-27] MEDS ORDERED: METHOTREXATE 2.5 MG TAB PO SCH (09:00)
== END 2025-02-21 14:05 | disposition home or self-care (01) ==
LOC: M ED 11:22 → M ED INP 11:23 → M MS5PR 02-19 15:50
PROVIDERS: ADMIT Student in an Organized Health Care Education/Training Program; ATTEND Internal Medicine Nephrology
DX: K56.41 Fecal impaction (principal); R32 Unspecified urinary incontinence; F03.90 Unspecified dementia, unspecified severity, without behavioral disturbance, psychotic disturbance, mood disturbance, and anxiety; I25.10 Atherosclerotic heart disease of native coronary artery without angina pectoris; Z98.61 Coronary angioplasty status; D86.9 Sarcoidosis, unspecified; E83.52 Hypercalcemia; R73.03 Prediabetes; I10 Essential (primary) hypertension; F32.A Depression, unspecified; G40.909 Epilepsy, unspecified, not intractable, without status epilepticus; G47.00 Insomnia, unspecified; D64.9 Anemia, unspecified; K21.9 Gastro-esophageal reflux disease without esophagitis; Z79.82 Long term (current) use of aspirin; Z79.899 Other long term (current) drug therapy
CPT/HCPCS: 36415; 70450; 71045; 71275; 74177; 80047; 80048; 80053; 80076; 81001; 82150; 83605; 83690; 84484; 85025; 85027; 87040; 87641; 93005; 93041; 96361; 96365; 96366; 96367; 96372; 96375; 97161; 97530; 99285; G0378; J0131; J0692; J1271; J1815; J2543; Q9967

== ENCOUNTER 2025-02-26 15:39 | Inpatient (IN) | payer MEDICARE ==
[~2025-02-26] VITALS: Ht 167.6 cm; Wt 76.6 kg
[~2025-02-26 15:39] MED LIST changes: +SENN8.6T58 PO
[2025-02-26 16:24] LABS: BASO # 0.0 10^3/uL (0.0-0.2); BASO % 0.2 % (0.0-1.0); EOS # 0.0 10^3/uL (0.0-0.5); EOS % 0.1 % (0.0-3.0); LYMPH # 0.1 10^3/uL (1.5-5.0); LYMPH % 0.6 % (24.0-44.0); MONO # 1.1 10^3/uL (0.0-0.8); MONO % 4.9 % (2.0-8.0); NEUTROPHILS # 20.8 10^3/uL (1.5-8.5); NEUTROPHILS % 93.4 % (36.0-66.0); PLATELET COUNT, AUTOMATED 267 10^3/uL (150-450)
[2025-02-26] MEDS: NS (Normal Saline) 0.9% 1,000 ML IV SCH ×2 (16:25→18:10)
[2025-02-26] MEDS: ONDANSETRON 4MG 2ML VIAL IV ONE (16:25)
[2025-02-26] MEDS: LIDOCAINE 2% 5 ML JELLY UROJET TOP ONE (16:40)
[2025-02-26 16:51] LABS: ALT/SGPT 29.0 U/L (7.0-40); AST/SGOT 22.0 U/L (<34); CALCIUM LEVEL 11.4 MG/DL (8.3-10.6); CARBON DIOXIDE LEVEL 25.0 MMOL/L (20-31); CHLORIDE LEVEL 99.0 MMOL/L (98-107); CREATININE FOR GFR 1.05 MG/DL (0.55-1.30); GLOMERULAR FILTRATION RATE 54.4 (>39); MAGNESIUM LEVEL 2.1 MG/DL (1.8-2.4); POTASSIUM SERUM 4.4 MMOL/L (3.5-5.1); SODIUM LEVEL 136.0 MMOL/L (136-145)
[2025-02-26] MEDS ORDERED: ISOVUE-370 76% 100 ML VIAL As Ordered ONE (16:59)
[2025-02-26 17:40] LABS: VENOUS BASE EXCESS -1.6 (-2.0-2.0); VENOUS HCO3 24.0 MMOL/L (23.0-27.0); VENOUS O2 SATURATION 65.3 % (60.0-80.0); VENOUS PARTIAL PRESSURE CO2 44.6 mmHg (38.0-50.0); VENOUS PARTIAL PRESSURE O2 36.2 mmHg (30.0-50.0); VENOUS PH 7.349 UNITS (7.330-7.430); VENOUS STANDARD HCO3 22.6 MMOL/L; VENOUS TOTAL CO2 25.4 MMOL/L (24.0-28.0)
[2025-02-26] MEDS ORDERED: ONDANSETRON 4MG 2ML VIAL IV PRN (18:10)
[2025-02-26] MEDS: cefTRIAXone SOD 2 GM in DEXTROSE 5% (D5W) ADV/MINI-BAG 50 ML IV ONE (18:18)
[2025-02-26] MEDS: **hydrALAZINE HCL** 25 MG TAB PO ONE (18:18)
[2025-02-26 18:39] LABS: KETONE, URINE AUTO RFX NEGATIVE (NEGATIVE); LEUKOCYTE ESTERASE UR AUTO RFX NEGATIVE (NEGATIVE); MUCUS, URINE RFX SMALL (NEGATIVE); NITRITE, URINE AUTO RFX NEGATIVE (NEGATIVE); RBC, URINE AUTO RFX 0 /HPF (0-3); SQUAM EPITHELIAL CELL UR AURFX 2 /HPF (0-6); WBC, URINE AUTO RFX 6 /HPF (0-3)
[2025-02-26] MEDS: PANTOPRAZOLE 40MG VIAL IV SCH (19:18)
[2025-02-26] MEDS ORDERED: HOME MED LIST COMPLETE! XX SCH (20:45)
[2025-02-26 20:47] VITALS: BP 167/71; TEMP 97.3; O2SAT 96
[2025-02-26] MEDS: SENNA 8.6 MG TAB PO SCH (21:00)
[2025-02-26] MEDS: GABAPENTIN 100 MG CAP PO SCH (21:00)
[2025-02-26] MEDS: DOCUSATE SODIUM 100 MG CAPSULE PO SCH (21:00)
[2025-02-26] MEDS: ATORVASTATIN 20 MG TAB PO SCH (21:00)
[2025-02-26] MEDS: ACETAMINOPHEN 500 MG TAB PO SCH (21:00)
[2025-02-26] MEDS ORDERED: PERCOCET 5MG/325MG TAB PO PRN (21:05)
[2025-02-26] MEDS ORDERED: BISACODYL 10 MG SUPP PR PRN (21:05)
[2025-02-26] MEDS ORDERED: MIRALAX *UNIT DOSE* 17 GM PACKET PO PRN (21:05)
[2025-02-26] MEDS ORDERED: RAMELTEON 8 MG TAB PO PRN (21:05)
[2025-02-26 21:58] LABS: INR 1.15
[2025-02-26 23:06] VITALS: BP 183/74; TEMP 97.5; O2SAT 95
[2025-02-26] MEDS: hydrALAZINE 20 MG/ML 1 ML VIAL IV PRN (23:12)
[2025-02-26] MEDS: OLANZapine INTRAMUSCULAR 10MG VIAL IM ONE (23:50)
[2025-02-27] VITALS (11 sets, daily range): BP systolic 137–194; BP diastolic 52–79; TEMP 97.1–98.5; O2SAT 69–96
[2025-02-27 05:42] LABS: PLATELET COUNT, AUTOMATED 209 10^3/uL (150-450)
[2025-02-27 06:17] LABS: ALT/SGPT 22.0 U/L (7.0-40); AST/SGOT 22.0 U/L (<34); CALCIUM LEVEL 10.8 MG/DL (8.3-10.6); CARBON DIOXIDE LEVEL 26.0 MMOL/L (20-31); CHLORIDE LEVEL 104.0 MMOL/L (98-107); CREATININE FOR GFR 0.82 MG/DL (0.55-1.30); GLOMERULAR FILTRATION RATE 73.2 (>39); POTASSIUM SERUM 4.2 MMOL/L (3.5-5.1); SODIUM LEVEL 138.0 MMOL/L (136-145)
[2025-02-27] MEDS: FERROUS GLUCONATE 324 MG TAB PO SCH (09:00)
[2025-02-27] MEDS: DIVALPROEX 125 MG TAB PO SCH (09:00)
[2025-02-27] MEDS: PANTOPRAZOLE 40MG TAB PO SCH (09:00)
[2025-02-27] MEDS ORDERED: FLUoxetine 20 MG CAP PO SCH (09:00)
[2025-02-27] MEDS: **hydrALAZINE HCL** 25 MG TAB PO SCH (09:00)
[2025-02-27] MEDS: FLUoxetine 20 MG CAP PO SCH (09:00)
[2025-02-27] MEDS: METHOTREXATE 2.5 MG TAB PO SCH (09:00)
[2025-02-27] MEDS: SUCRALFATE 1 GM TAB PO SCH (09:00)
[2025-02-27] MEDS: HEPARIN SOD 5000 UNITS/ML 1 ML VIAL/SYRINGE SC SCH (10:21)
[2025-02-27] MEDS: cloNIDine HCL 0.1 MG/24 HR PATCH TOP SCH (10:22)
[2025-02-27] MEDS: amLODIPine 10 MG TAB PO SCH (13:44)
[2025-02-27] MEDS: ASPIRIN 81 MG CHEWABLE TABLET PO SCH (13:44)
[2025-02-27] MEDS: FOLIC ACID 1 MG TAB PO SCH (13:45)
[2025-02-27] MEDS: HYDROXYCHLOROQUINE 200 MG TAB PO SCH (13:46)
[2025-02-27] MEDS: CLOPIDOGREL 75 MG TAB PO SCH (13:46)
[2025-02-27] MEDS: HALOPERIDOL 2 MG TAB PO SCH (16:25)
[2025-02-27] MEDS: DIVALPROEX SPRINKLE 125 MG CAP PO SCH (16:26)
[2025-02-27] MEDS: OLANZapine 10 MG TAB PO SCH (21:00)
[2025-02-28 03:48] VITALS: BP 160/60; TEMP 98; O2SAT 92
[2025-02-28 05:18] LABS: PLATELET COUNT, AUTOMATED 181 10^3/uL (150-450)
[2025-02-28 05:49] LABS: ALT/SGPT 19 U/L (7.0-40); AST/SGOT 24 U/L (<34); CALCIUM LEVEL 10.1 MG/DL (8.3-10.6); CARBON DIOXIDE LEVEL 25 MMOL/L (20-31); CHLORIDE LEVEL 103 MMOL/L (98-107); CREATININE FOR GFR 0.65 MG/DL (0.55-1.30); GLOMERULAR FILTRATION RATE > 90.0 (>39); POTASSIUM SERUM 4.4 MMOL/L (3.5-5.1); SODIUM LEVEL 138 MMOL/L (136-145)
[2025-02-28] MEDS ORDERED: ONDANSETRON 4MG ORAL DISINTEGRATING TAB SL PRN (07:25)
[2025-02-28 07:30] VITALS: BP 170/90; TEMP 97.9; O2SAT 96
[2025-02-28] MEDS: DIVALPROEX SPRINKLE 125 MG CAP PO SCH (09:00)
[2025-02-28 11:35] VITALS: BP 162/70; TEMP 98.2; O2SAT 97
[2025-02-28 16:08] VITALS: BP 180/80; TEMP 98; O2SAT 97
[2025-02-28] MEDS ORDERED: MORPHINE 10 MG/0.5 ML ORAL CONCENTRATE SOLUTION U/D SL PRN (17:55)
[2025-02-28] MEDS ORDERED: ATROPINE SULFATE 1% OPHTH SOLN 2 ML BTL SL PRN (17:55)
[2025-02-28] MEDS: LORazepam 1 MG TAB PO PRN (21:34)
[2025-03-01 08:00] VITALS: TEMP 97
[2025-03-01 12:00] VITALS: TEMP 97.3
[2025-03-01 16:00] VITALS: TEMP 97.8
[2025-03-01] MEDS: MORPHINE 10 MG/0.5 ML ORAL CONCENTRATE SOLUTION U/D SL PRN (17:40)
[2025-03-01] MEDS: OLANZapine INTRAMUSCULAR 10MG VIAL IM PRN (19:44)
[2025-03-06] MEDS: MORPHINE 10 MG/0.5 ML ORAL CONCENTRATE SOLUTION U/D SL SCH (14:23)
[2025-03-08] MEDS: HYOSCYAMINE SULFATE 0.125 MG SUBL TABLET SL SCH (17:56)
[2025-03-08] MEDS: SCOPOLAMINE 1MG TRANSDERMAL PATCH TOP PRN (23:56)
== END 2025-03-09 20:30 | disposition expired | DRG 641 ==
LOC: EDBD 15:39 → M ED 15:39 → M ED INP 18:07 → M PCU 20:49 → M MS5PR 03-02 23:02
PROVIDERS: ADMIT Internal Medicine; ATTEND Internal Medicine
DX: E86.0 Dehydration (principal); F03.911 Unspecified dementia, unspecified severity, with agitation; R44.3 Hallucinations, unspecified; Z66 Do not resuscitate; I25.10 Atherosclerotic heart disease of native coronary artery without angina pectoris; M32.9 Systemic lupus erythematosus, unspecified; E11.9 Type 2 diabetes mellitus without complications; I10 Essential (primary) hypertension; F32.A Depression, unspecified; G40.909 Epilepsy, unspecified, not intractable, without status epilepticus; K21.9 Gastro-esophageal reflux disease without esophagitis; D86.9 Sarcoidosis, unspecified; K59.09 Other constipation; L89.152 Pressure ulcer of sacral region, stage 2; E87.20 Acidosis, unspecified; R62.7 Adult failure to thrive; M25.512 Pain in left shoulder; R57.1 Hypovolemic shock; R13.12 Dysphagia, oropharyngeal phase; R32 Unspecified urinary incontinence; Z96.653 Presence of artificial knee joint, bilateral; Z96.641 Presence of right artificial hip joint; Z96.611 Presence of right artificial shoulder joint; Z96.612 Presence of left artificial shoulder joint; E83.52 Hypercalcemia; M06.9 Rheumatoid arthritis, unspecified; G89.29 Other chronic pain; Z79.899 Other long term (current) drug therapy; Z79.82 Long term (current) use of aspirin; Z88.8 Allergy status to other drugs, medicaments and biological substances; Z90.49 Acquired absence of other specified parts of digestive tract; R11.2 Nausea with vomiting, unspecified; Z95.5 Presence of coronary angioplasty implant and graft